=== PATIENT | female | born 1970 | race Caucasian/White ===

== ENCOUNTER 2016-10-31 21:17 | Emergency (ER) | payer MEDICAID ==
[~2016-10-31] VITALS: Ht 177.8 cm; Wt 78.6 kg
[~2016-10-31 21:17] MED LIST: CLON0.5T23 PO; DULO60CA56 PO; FLUD0.1T10 PO; LIOT5TAB9 PO; PARO40TA72 PO; PROG100C6 PO; PROP10DR3 BOTH EYES; RISP1TAB4 PO; RISP3TAB3 PO; THYR60TA2 PO; TOPI100T43 PO; TRAZ-173 PO
[2016-10-31 21:22] VITALS: Ht 177.8 cm; Wt 78.6 kg
--- OUTSIDE RECORDS SUMMARY | 2016-10-31 21:22 | XMS REPORT | Referral Summary ---
Author Author [facility], [facility] Organization [facility] Address Unknown Phone Unavailable Care Team Providers Care Blueprinter Name Role Phone Marisol Peoples Primary Care Physician [phone] Encounter Date(s): 10/24/15 - 10/24/15 [facility], [address] [place] [id number]- Discharge Diagnosis: Abdominal pain Discharge Diagnosis: Fatigue Discharge Diagnosis: Paranoid schizophrenia Discharge Disposition: 01-Home or Self Care Attending Physician: Veronica Mullen PA-C Admitting Physician: Veronica Mullen PA-C Vital Signs Most recent to 1 oldest [Reference Range]: Temperature Tympanic 36.2 degC [36.6-38.1 degC] *LOW* (10/24/15 11:09 AM) Peripheral Pulse 72 bpm Rate [60-100 bpm] (10/24/15 11:09 AM) Blood Pressure 110/74 mmHg [90-140/60-90 mmHg] (10/24/15 11:09 AM) Problem List Condition Effective Dates Status Health Status Informant Allergies(Confirmed) Active Bronchitis(Confirmed Active ) Chronic otitis Active media(Confirmed) Chronic sinus Active infection(Confirmed) Depression(Confirmed Active ) Fibromyalgia(Confirm Active ed) GERD Active (gastroesophageal reflux disease)(Confirmed) Joint Active pain(Confirmed) OA Active (osteoarthritis)(Con firmed) Paranoid Active schizophrenia(Confir med) Tobacco Active patient user(Confirmed) Fibroid 2006 Active tumor(Confirmed) Allergies, Adverse Reactions, Alerts No Known Medication Allergies Substance Reaction Severity Status shellfish Active Medications clonazePAM 1 mg oral tablet 1 mg 1 tabs, Oral, BID, 0 Refill(s) Start Date: 12/13/13 Status: Ordered Cymbalta 60 mg oral delayed release capsule 2 caps, Oral, Daily, 0 Refill(s) Start Date: 12/13/13 Status: Ordered fludrocortisone 0.1 mg oral tablet See Instructions, TAKE 1 TABLET (0.1MG) BY ORAL ROUTE EVERY DAY, # 90 unknown unit, eRx: [employer] [id number], TAKE 1 TABLET (0.1MG) BY ORAL ROUTE EVERY DAY Start Date: 08/28/15 Status: Ordered GELATIN 1,200 mg, Oral, Daily, 0 Refill(s) Start Date: 12/13/13 Status: Ordered liothyronine 5 mcg oral tablet 5 mcg 1 tabs, Oral, qAM, 0 Refill(s) Start Date: 11/02/14 Status: Ordered magnesium oxide 250 mg, Oral, Daily, 0 Refill(s) Start Date: 12/13/13 Status: Ordered multivitamin 1 tabs, Daily, 0 Refill(s) Start Date: 12/13/13 Status: Ordered Proctozone HC 2.5% topical cream 1 geoff, Topical, TID, # 30 g, 0 Refill(s), [facility] [id number] Start Date: 06/12/15 Status: Ordered RisperDAL 1 mg oral tablet 1 mg 1 tabs, Oral, BID, 2 mg am and 3 mg pm, # 60 tabs, 0 Refill(s) Start Date: 03/15/15 Status: Ordered Topamax 100 mg oral tablet 100 mg 1 tabs, Oral, BID, 0 Refill(s) Start Date: 12/13/13 Status: Ordered traZODone 100 mg oral tablet 1 tabs, Oral, Bedtime (once a day), 0 Refill(s) Start Date: 11/02/14 Status: Ordered Results Hematology Most recent to 1 oldest [Reference Range]: WBC [4.8-10.8 5.2 10*3/uL 10*3/uL] (10/24/15 11:40 AM) RBC [4.00-5.20] 4.63 (10/24/15 11:40 AM) Hgb [12.0-16.0 14.3 gm/dL gm/dL] (10/24/15 11:40 AM) Hct [37.0-47.0 %] 40.8 % (10/24/15 11:40 AM) MCV [82.0-99.0 fL] 88.1 fL (10/24/15:40 AM) MCH [27.0-32.0 pg] 30.9 pg (10/24/1540 AM) MCHC [32.0-36.0 35.0 gm/dL gm/dL] (10/24/1540 AM) RDW [11.5-14.5 %] 12.8 % (10/24/1540 AM) Platelet [150-400 310 10*3/uL 10*3/uL] (10/24/1540 AM) MPV [8.8-14.8 fL] 11.0 fL (10/24/1540 AM) Immature 0.0 % Granulocytes (10/24/15) [0.0-1.0 %] Neutrophils [51-75 46 % %] *LOW* (10/24/15:40 AM) Lymphocytes [20-46 42 % %] (10/24/1540 AM) Monocytes [4-11 %] 8 % (10/24/15 11:40 AM) Eosinophils [0-4 %] 3 % (10/24/15 11:40 AM) Basophils [0-2 %] 1 % (10/24/15 11:40 AM) Neutro Absolute 2.39 10*3 [1.90-7.00 10*3] (10/24/15 11:40 AM) Lymph Absolute 2.14 10*3 [0.80-3.30 10*3] (10/24/15 11:40 AM) Hood Absolute 0.41 10*3 [0.30-1.00 10*3] (10/24/15 11:40 AM) Eos Absolute 0.16 10*3 [0.00-0.50 10*3] (10/24/15 11:40 AM) Baso Absolute 0.05 10*3 [0.00-0.20 10*3] (10/24/15 11:40 AM) Chemistry Most recent to 1 oldest [Reference Range]: Sodium Lvl [135-144 140 mEq/L mEq/L] (10/24/15 1140 AM) Potassium Lvl 3.8 mEq/L [3.5-5.2 mEq/L] (10/24/15 11:40 AM) Chloride [99-111 108 mEq/L mEq/L] (10/24/15 11:40 AM) CO2 [22-31 mEq/L] 27 mEq/L (10/24/15:40 AM) AGAP [3-20] 5 (10/24/15:40 AM) BUN [7-19 mg/dL] 6 mg/dL *LOW* (10/24/15 AM) Glucose Lvl [70-99 115 mg/dL mg/dL] *HI* (10/24/1540 AM) Creatinine Lvl 0.70 mg/dL [0.57-1.11 mg/dL] (10/24/1540 AM) eGFR [>60 mL/min] >60 mL/min 1 (10/24/1540 AM) Calcium Lvl 9.4 mg/dL [8.9-10.5 mg/dL] (10/24/15:40 AM) Albumin Lvl [3.5-5.0 4.0 gm/dL gm/dL] (10/24/15:40 AM) Total Protein 6.2 gm/dL [6.4-8.3 gm/dL] *LOW* (10/24/1540 AM) Globulin [1.8-4.0 2.2 gm/dL gm/dL] (10/24/15 11:40 AM) ALT [0-55 U/L] 23 U/L (10/24/15:40 AM) AST [5-34 U/L] 24 U/L (10/24/15 11:40 AM) Alk Phos [40-150 102 U/L U/L] (10/24/15 11:40 AM) Bili Total [0.2-1.2 0.2 mg/dL mg/dL] (10/24/15 11:40 AM) T4 Free [0.7-1.5 0.6 ng/dL ng/dL] *LOW* (10/24/15 11:40 AM) TSH with Reflex Free 0.10 T4 [0.35-4.94] *LOW* (10/24/15 11:40 AM) 1Result Comment: Multiply eGFR results by 1.21 for race. Immunizations Vaccine Date Refusal Reason tetanus/diphth/pertuss (Tdap) adult/adol 06/07/12 Procedures Procedure Date Related Diagnosis Body Site JULIANA - Total abdominal hysterectomy - 1 ovary 2006 Tonsillectomy Social History Social History Type Response Smoking Status Former smoker Assessment and Plan Extracted from: Title: Ambulatory Patient Education Author: Veronica Mullen PA-C Date : 10/24/15 Behavioral Health Schizophrenia Schizophrenia is a mental illness. It may cause disturbed or disorganized thinking, speech, or behavior. People with schizophrenia have problems functioning in one or more areas of life: work, school, home, or relationships. People with schizophrenia are at increased risk for suicide, certain chronic physical illnesses, and unhealthy behaviors, such as smoking and drug use. People who have family members with schizophrenia are at higher risk of developing the illness. Schizophrenia affects men and women equally but usually appears at an earlier age (teenage or early adult years) in men. SYMPTOMS The earliest symptoms are often subtle (prodrome) and may go unnoticed until the illness becomes more severe (first-break psychosis). Symptoms of schizophrenia may be continuous or may come and go in severity. Episodes often are triggered by major life events, such as family stress, college, service, marriage, or child , divorce, or loss of a loved one. People with schizophrenia may see, hear, or feel things that do not exist ( hallucinations). They may have false beliefs in spite of obvious proof to the contrary (delusions). Sometimes speech is incoherent or behavior is odd or withdrawn. DIAGNOSIS Schizophrenia is diagnosed through an assessment by your caregiver. Your caregiver will ask questions about your thoughts, behavior, mood, and ability to function in daily life. Your caregiver may ask questions about your medical history and use of alcohol or drugs, including prescription medication. Your caregiver may also order blood tests and imaging exams. Certain medical conditions and substances can cause symptoms that resemble schizophrenia. Your caregiver may refer you to a mental health specialist for evaluation. There are three major criterion for a diagnosis of schizophrenia: Two or more of the following five symptoms are present for a month or longer: Delusions. Often the delusions are that you are being attacked, harassed , cheated, persecuted or conspired against (persecutory delusions). Hallucinations. Disorganized speech that does not make sense to others. Grossly disorganized (confused or unfocused) behavior or extremely overactive or underactive motor activity (catatonia). Negative symptoms such as bland or blunted emotions (flat affect), loss of will power (avolition), and withdrawal from social contacts (social isolation ). Level of functioning in one or more major areas of life (work, school, relationships, or self-care) is markedly below the level of functioning before the onset of illness. There are continuous signs of illness (either mild symptoms or decreased level of functioning) for at least 6 months or longer. TREATMENT Schizophrenia is a long-term illness. It is best controlled with continuous treatment rather than treatment only when symptoms occur. The following treatments are used to manage schizophrenia: MedicationMedication is the most effective and important form of treatment for schizophrenia. Antipsychotic medications are usually prescribed to help manage schizophrenia. Other types of medication may be added to relieve any symptoms that may occur despite the use of antipsychotic medications. Counseling or talk therapyIndividual, group, or family counseling may be helpful in providing education, support, and guidance. Many people with schizophrenia also benefit from social skills and job skills (vocational) training. A combination of medication and counseling is best for managing the disorder over time. A procedure in which electricity is applied to the brain through the scalp (electroconvulsive therapy) may be used to treat catatonic schizophrenia or schizophrenia in people who cannot take or do not respond to medication and counseling. This information is not intended to replace advice given to you by your health care provider. Make sure you discuss any questions you have with your health care provider. Document Released: 06/12/2001 Document Revised: 04/03/2015 Document Reviewed: [facility] Patient Information [address] [facility] [address]. Emergency Medicine Abdominal Pain Many things can cause abdominal pain. Usually, abdominal pain is not caused by a disease and will improve without treatment. It can often be observed and treated at home. Your health care provider will do a physical exam and possibly order blood tests and X-rays to help determine the seriousness of your pain. However, in many cases, more time must pass before a clear cause of the pain can be found. Before that point, your health care provider may not know if you need more testing or further treatment. HOME CARE INSTRUCTIONS Monitor your abdominal pain for any changes. The following actions may help to alleviate any discomfort you are experiencing: Only take cuxd-hql-vjqnumc or prescription medicines as directed by your health care provider. Do not take laxatives unless directed to do so by your health care provider. Try a clear liquid diet (broth, tea, or water) as directed by your health care provider. Slowly move to a bland diet as tolerated. SEEK MEDICAL CARE IF: You have unexplained abdominal pain. You have abdominal pain associated with nausea or diarrhea. You have pain when you urinate or have a bowel movement. You experience abdominal pain that wakes you in the night. You have abdominal pain that is worsened or improved by eating food. You have abdominal pain that is worsened with eating fatty foods. You have a fever. SEEK IMMEDIATE MEDICAL CARE IF: Your pain does not go away within 2 hours. You keep throwing up (vomiting). Your pain is felt only in portions of the abdomen, such as the right side or the left lower portion of the abdomen. You pass bloody or black tarry stools. MAKE SURE YOU: Understand these instructions. Will watch your condition. Will get help right away if you are not doing well or get worse. This information is not intended to replace advice given to you by your health care provider. Make sure you discuss any questions you have with your health care provider. Document Released: 03/25/2006 Document Revised: 06/20/2014 Document Reviewed: [facility] Patient Information 2015 [facility]. [facility] Fatigue Fatigue is feeling tired all of the time, a lack of energy, or a lack of motivation. Occasional or mild fatigue is often a normal response to activity or life in general. However, long-lasting (chronic) or extreme fatigue may indicate an underlying medical condition. HOME CARE INSTRUCTIONS Watch your fatigue for any changes. The following actions may help to lessen any discomfort you are feeling: Talk to your health care provider about how much sleep you need each night. Try to get the required amount every night. Take medicines only as directed by your health care provider. Eat a healthy and nutritious diet. Ask your health care provider if you need help changing your diet. Drink enough fluid to keep your urine clear or pale yellow. Practice ways of relaxing, such as yoga, meditation, massage therapy, or acupuncture. Exercise regularly. Change situations that cause you stress. Try to keep your work and personal routine reasonable. Do not abuse illegal drugs. Limit alcohol intake to no more than 1 drink per day for non women and 2 drinks per day for men. One drink equals 12 ounces of beer, 5 ounces of wine, or 1 ounces of hard liquor. Take a multivitamin, if directed by your health care provider. SEEK MEDICAL CARE IF: Your fatigue does not get better. You have a fever. You have unintentional weight loss or gain. You have headaches. You have difficulty: Falling asleep. Sleeping throughout the night. You feel angry, guilty, anxious, or sad. You are unable to have a bowel movement (constipation). You skin is dry. Your legs or another part of your body is swollen. SEEK IMMEDIATE MEDICAL CARE IF: You feel confused. Your vision is blurry. You feel faint or pass out. You have a severe headache. You have severe abdominal, pelvic, or back pain. You have chest pain, shortness of breath, or an irregular or fast heartbeat. You are unable to urinate or you urinate less than normal. You develop abnormal bleeding, such as bleeding from the rectum, vagina, nose, lungs, or nipples. You vomit blood. You have thoughts about harming yourself or committing suicide. You are worried that you might harm someone else. This information is not intended to replace advice given to you by your health care provider. Make sure you discuss any questions you have with your health care provider. Document Released: 04/11/2008 Document Revised: 04/03/2015 Document Reviewed: [facility] Patient Information 2015 [facility], [facility]. No follow up information was provided. Extracted from: Title: Office Visit Note- Fatigue, Author: Veronica Mullen PA-C Date : 10/24/15 abd pain Assessment/Plan Abdominal pain I think this is probably more functional abdominal pain. She thinks that there are people in her house putting things in her food to make her sick. I recommended that she call her therapist and machine adjuster leader case trim today. Ordered: Office Visit Level 4 Est 83996 Fatigue, Fatigue I think this couldbe due to her recent changes in medications. Again, she needs to see her therapist TANIYA.Will go ahead and check some lab. As far as the STD checking goes, I advised against checking these. I did offer to check HIV status, but she declined today. Ordered: CBC w/ Differential Comprehensive Metabolic Panel Office Visit Level 4 Est 65319 TSH with Reflex Free T4 Paranoid schizophrenia As above, antoineeeds to see her therapist today. I think she would do infinitely better as in patient, but she does not want to do this because of her cat. F/u with psych. Ordered: Office Visit Level 4 Est 65512
--- OUTSIDE RECORDS SUMMARY | 2016-10-31 21:22 | XMS REPORT ---
Author Author Sandra Daniel Organization [employer] Address Unknown Phone Unavailable Care Team Providers Care Account Management Specialist Name Role Phone Sandra Daniel Unavailable Allergies No Known Allergies Problems Problem Type Condition Code Onset Dates Condition Status Problem Anxiety state, unspecified 300.00 Active Problem Unspecified schizophrenia, unspecified condition 295.90 Active Medications Medication Code System Code Instructions Start Date End Date Status Dosage [facility] [address]-07 6 MG Orally Once a day 1 tablet Results No Known Results Summary Purpose [employer] Submission
--- OUTSIDE RECORDS SUMMARY | 2016-10-31 21:23 | XMS REPORT | Continuity of Care Document ---
Author Author [facility] Organization [facility] Address Unknown Phone Unavailable Allergies Medications Problems Date Dx Coded Attending Type Code Diagnosis Diagnosed By 08/23/2015 LOYDA MCKEON E039 Hypothyroidism, unspecified 08/23/2015 LOYDA MCKEON F251 Schizoaffective disorder, depressive type 08/23/2015 LOYDA MCKEON I10 Essential (primary) hypertension 08/23/2015 LOYDA MCKEON R51 Headache 08/23/2015 LOYDA MCKEON [id number] Hormone replacement therapy (postmenopausal) 08/23/2015 LOYDA MCKEON [id number] Other extermination supervisor (current) drug therapy 08/23/2015 LOYDA MCKEON Z9114 Patient's other noncompliance with medication regimen 08/23/2015 LOYDA MCKEON Z915 Personal history of self-harm 10/26/2015 ANGELITA CALLAWAY E039 Hypothyroidism, unspecified 10/26/2015 ANGELITA CALLAWAY F209 Schizophrenia, unspecified 10/26/2015 ANGELITA CALLAWAY Z915 Personal history of self-harm Procedures Results Encounters ACCT No. Visit Date/Time Discharge Status Pt. Type Provider Facility Loc./Unit Complaint [id number] 09/22/2013 13:45:00 09/22/2013 23 :59:59 [facility] Outpatient [id number] 09/14/2013 10:00:00 09/14/2013 23 :59:59 [facility] Outpatient
--- OUTSIDE RECORDS SUMMARY | 2016-10-31 21:23 | XMS REPORT ---
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 Problem Major depressive disorder, recurrent, moderate F33.1 Active Problem Anxiety disorder, unspecified F41.9 Active Assessment Anxiety disorder, unspecified F41.9 Active Assessment Major depressive disorder, recurrent, moderate F33.1 Active 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 Chacon 1 tablet Liothyronine Sodium [facility] [address]-26 5 MCG Orally twice daily 1 tabs in AM sand 2 in PM Risperdal [facility] [address]-07 3 MG Orally Once a day in the evening December 08, 2014 1 tablet Clonazepam [facility] [address]-90 0.5 MG Orally twice daily anxiety; no early refills 1/2 tablet in afternoon and at bedtime Duloxetine HCl [facility] [address]-48 60 MG Orally Once a day in AM for mood 2 capsules Blair Thyroid [facility] [address]-25 30 MG Orally as directed 2 tabs in AM and 1 tabs every PM Topiramate [facility] [address]-62 100 MG Orally as directed for mood stabilization 1 tablet in AM, 1 in afternoon, and 1 tabs at H.S. Procedures Procedure Coding System Code Date OFFICE VISIT, EST-MOD. COMPLEXITY (25 MIN) CPT-4 01080 Jun 26, 2015 Vital Signs Date/Time: Jun 26, 2015 Height 68.5 in Weight 165.8 lbs Temperature 98.5 F Blood Pressure Diastolic 88 mm Hg Blood Pressure Systolic 138 mm Hg Cardiac Monitoring Heart Rate 76 /min BMI 24.84 Index Respiratory Rate 18 /min Results No Known Results Summary Purpose [employer] Submission
--- OUTSIDE RECORDS SUMMARY | 2016-10-31 21:23 | XMS REPORT ---
Author Author Sandra Daniel Organization [employer] Address Unknown Phone Unavailable Care Team Providers Care Rug Setter [place] Name Role Phone Sandra Daniel Unavailable Allergies No Known Allergies Problems Problem Type Condition ICD-9 Code Onset Dates Condition Status Problem Anxiety state, unspecified 300.00 Active Assessment Unspecified schizophrenia, unspecified condition 295.90 Active Problem Unspecified schizophrenia, unspecified condition 295.90 Active Medications Medication Code System Code Instructions Start Date End Date Status Dosage [facility] [address]-98 3 MG Orally Once a day (add to 6mg to equal 9mg) September 19, 2014 1 tablet Results No Known Results Summary Purpose [employer] Submission
--- OUTSIDE RECORDS SUMMARY | 2016-10-31 21:23 | XMS REPORT ---
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
--- OUTSIDE RECORDS SUMMARY | 2016-10-31 21:23 | XMS REPORT ---
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
--- OUTSIDE RECORDS SUMMARY | 2016-10-31 21:23 | XMS REPORT ---
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 [address]-83 0.5 MG Orally twice daily anxiety; no early refills 1/2 tablet in afternoon and at bedtime Results No Known Results Summary Purpose [employer] Submission
--- OUTSIDE RECORDS SUMMARY | 2016-10-31 21:23 | XMS REPORT | Referral Summary ---
Author Author [facility] Organization [facility] Address Unknown Phone Unavailable Care Team Providers Care Copying Machine Repairer Name Role Phone Marisol Peoples Primary Care Physician [phone] Encounter VC Date(s): 11/02/14 - 11/02/14 [facility] [address] [place] [id number] Discharge Diagnosis: Orthostasis Discharge Disposition: 01-Home or Self Care Attending Physician: Danielle Chacon MD Admitting Physician: Danielle Chacon MD Vital Signs Most recent to 1 oldest [Reference Range]: Peripheral Pulse 46 bpm Rate [60-100 bpm] *LOW* (11/02/14 2:57 PM) Blood Pressure 120/82 mmHg [90-140/60-90 mmHg] (11/02/14 2:57 PM) Problem List Condition Effective Dates Status Health Status Informant Allergies(Confirmed) Active Bronchitis(Confirmed Active ) Chronic otitis Active media(Confirmed) Chronic sinus Active infection(Confirmed) Depression(Confirmed Active ) Fibromyalgia(Confirm Active ed) GERD Active (gastroesophageal reflux disease)(Confirmed) Joint Active pain(Confirmed) OA Active (osteoarthritis)(Con firmed) Tobacco Active patient user(Confirmed) Fibroid 2006 Active tumor(Confirmed) Allergies, Adverse Reactions, Alerts No Known Medication Allergies Medications [place] Thyroid 2 gm, Oral, qAM, 1gm qPM, 0 Refill(s) Start Date: 11/02/14 Status: Ordered clonazePAM 1 mg oral tablet 0.5 mg 0.5 tabs, Oral, BID, 0 Refill(s) Start Date: 12/13/13 Status: Ordered cyclobenzaprine 10 mg oral tablet 1 tabs, Oral, TID, as needed for spasm, # 30 tabs, 0 Refill(s) Start Date: 11/02/14 Status: Ordered Cymbalta 60 mg oral delayed release capsule 2 caps, Oral, Daily, 0 Refill(s) Start Date: 12/13/13 Status: Ordered Fish Oil 1000 mg oral capsule 1 caps, Oral, Daily, 0 Refill(s) Start Date: 12/13/13 Status: Ordered fludrocortisone 0.1 mg oral tablet See Instructions, TAKE 1 TABLET (0.1MG) BY ORAL ROUTE EVERY DAY, # 90 unknown unit, 3 Refill(s), eRx: [id number], TAKE 1 TABLET (0.1MG) BY ORAL ROUTE EVERY DAY Start Date: 09/22/14 Status: Ordered GELATIN 1,200 mg, Oral, Daily, 0 Refill(s) Start Date: 12/13/13 Status: Ordered liothyronine 5 mcg oral tablet 1 tabs, Oral, qAM, 2 tab qPM, 0 Refill(s) Start Date: 11/02/14 Status: Ordered magnesium oxide 250 mg, Oral, Daily, 0 Refill(s) Start Date: 12/13/13 Status: Ordered multivitamin 1 tabs, Daily, 0 Refill(s) Start Date: 12/13/13 Status: Ordered [place] 5 mg-325 mg oral tablet 1 tabs, Oral, q6hr, as needed for pain, not to exceed 8 tablets/day MUST HAVE APPT PRIOR TO ANY ADDITIONAL REFILLS, # 30 tabs, 0 Refill(s) Start Date: 03/20/15 Status: Ordered Paxil 30 mg oral tablet 1 tabs, Oral, Daily, # 30 tabs, 0 Refill(s) Start Date: 12/13/13 Status: Ordered RisperDAL 1 mg oral tablet 1 mg 1 tabs, Oral, BID, 1 mg am and 3 mg pm, # 60 tabs, 0 Refill(s) Start Date: 03/15/15 Status: Ordered Topamax 100 mg oral tablet 1 tabs, Oral, TID, 0 Refill(s) Start Date: 12/13/13 Status: Ordered traZODone 100 mg oral tablet 1 tabs, Oral, Bedtime (once a day), 0 Refill(s) Start Date: 11/02/14 Status: Ordered Results Hematology Most recent to 1 oldest [Reference Range]: WBC [4.8-10.8 7.0 10*3/uL 10*3/uL] (11/02/14 3:56 PM) RBC [4.00-5.20 4.52 10*6/uL 10*6/uL] (11/02/14 3:56 PM) Hgb [12.0-16.0 14.0 gm/dL gm/dL] (11/02/14 3:56 PM) Hct [37.0-47.0 %] 39.9 % (11/02/14 3:56 PM) MCV [82.0-99.0 fL] 88.3 fL (11/02/14 3:56 PM) MCH [27.0-32.0 pg] 31.0 pg (11/02/14 3:56 PM) MCHC [32.0-36.0 35.1 gm/dL gm/dL] (11/02/14 3:56 PM) RDW [11.5-14.5 %] 12.7 % (11/02/14 3:56 PM) Platelet [150-400 234 10*3/uL 10*3/uL] (11/02/14 3:56 PM) MPV [8.8-14.8 fL] 10.7 fL (11/02/14 3:56 PM) Immature 0.1 % Granulocytes (11/02/14 3:56 PM) [0.0-1.0 %] Neutrophils [51-75 52 % %] (11/02/14 3:56 PM) Lymphocytes [20-46 38 % %] (11/02/14 3:56 PM) Monocytes [4-11 %] 7 % (11/02/14 3:56 PM) Eosinophils [0-4 %] 2 % (11/02/14 3:56 PM) Basophils [0-2 %] 0 % (11/02/14 3:56 PM) Neutro Absolute 3.67 10*3 [1.90-7.00 10*3] (11/02/14 3:56 PM) Lymph Absolute 2.69 10*3 [0.80-3.30 10*3] (11/02/14 3:56 PM) [place] Absolute 0.47 10*3 [0.30-1.00 10*3] (11/02/14 3:56 PM) Eos Absolute 0.15 10*3 [0.00-0.50 10*3] (11/02/14 3:56 PM) Baso Absolute 0.03 10*3 [0.00-0.20 10*3] (11/02/14 3:56 PM) Chemistry Most recent to 1 oldest [Reference Range]: Sodium Lvl [135-144 137 mEq/L mEq/L] (11/02/14 3:56 PM) Potassium Lvl 3.9 mEq/L [3.5-5.2 mEq/L] (11/02/14 3:56 PM) Chloride [99-111 108 mEq/L mEq/L] (11/02/14 3:56 PM) CO2 [22-31 mEq/L] 23 mEq/L (11/02/14 3:56 PM) AGAP [3-20] 6 (11/02/14 3:56 PM) BUN [7-19 mg/dL] 7 mg/dL (11/02/14 3:56 PM) Glucose Lvl [70-99 86 mg/dL mg/dL] (11/02/14 3:56 PM) Creatinine Lvl 0.60 mg/dL [0.57-1.11 mg/dL] (11/02/14 3:56 PM) eGFR [>60 mL/min] >60 mL/min 1 (11/02/14 3:56 PM) Calcium Lvl 9.3 mg/dL [8.9-10.5 mg/dL] (11/02/14 3:56 PM) Albumin Lvl [3.5-5.0 3.9 gm/dL gm/dL] (11/02/14 3:56 PM) Total Protein 6.1 gm/dL [6.4-8.3 gm/dL] *LOW* (11/02/14 3:56 PM) Globulin [1.8-4.0 2.2 gm/dL gm/dL] (11/02/14 3:56 PM) ALT [0-55 U/L] 23 U/L (11/02/14 3:56 PM) AST [5-34 U/L] 23 U/L (11/02/14 3:56 PM) Alk Phos [40-150 80 U/L U/L] (11/02/14 3:56 PM) Bili Total [0.2-1.2 0.5 mg/dL mg/dL] (11/02/14 3:56 PM) 1Result Comment: Multiply eGFR results by 1.21 for race. Immunizations Vaccine Date Refusal Reason tetanus/diphth/pertuss (Tdap) adult/adol 06/07/12 Procedures Procedure Date Related Diagnosis Body Site JULIANA - Total abdominal hysterectomy - 1 ovary 2006 Tonsillectomy Social History Social History Type Response Smoking Status Former smoker Assessment and Plan Extracted from: Title: Office Visit Note Author: Danielle Chacon MD Date: 11/02/14 Assessment/Plan 1.Orthostasis Ordered: CBC w/ Differential Comprehensive Metabolic Panel Office Visit Level 3 Est 65232 Return to Clinic Referrals to Other Providers Referred by: Danielle Chacon MD
--- OUTSIDE RECORDS SUMMARY | 2016-10-31 21:23 | XMS REPORT | Referral Summary ---
Author Author [facility] Organization [facility] Address Unknown Phone Unavailable Care Team Providers Care Office Machine Inspector Name Role Phone Marisol Peoples Primary Care Physician [phone] Encounter VC Date(s): 11/06/15 - 11/06/15 [facility] [address] [place] [id number] Discharge Diagnosis: Orthostasis Discharge Disposition: 01-Home or Self Care Attending Physician: Danielle Chacon MD Admitting Physician: Danielle Chacon MD Vital Signs Most recent to 1 oldest [Reference Range]: Peripheral Pulse 50 bpm Rate [60-100 bpm] *LOW* (11/06/15 3:08 PM) Blood Pressure 110/70 mmHg [90-140/60-90 mmHg] (11/06/15 3:08 PM) Problem List Condition Effective Dates Status [...] Refill(s) Start Date: 12/13/13 Status: Ordered Cymbalta 120 mg, Oral, Daily, 0 Refill(s) Start Date: 11/06/15 Status: Ordered Cymbalta 60 mg oral delayed release capsule 2 caps, Oral, Daily, 0 Refill(s) Start Date: 12/13/13 Status: Ordered fludrocortisone 0.1 mg oral tablet See Instructions, TAKE 1 TABLET (0.1MG) BY ORAL ROUTE EVERY DAY, # 90 unknown unit, eRx: [id number], TAKE 1 TABLET (0.1MG) BY ORAL ROUTE EVERY DAY Start Date: 08/28/15 Status: Ordered magnesium oxide 250 mg, Oral, Daily, 0 Refill(s) Start Date: 12/13/13 Status: Ordered MiraLax oral powder for reconstitution 17 g, Oral, Daily, dissolve in water before taking, # 255 g, 0 Refill(s) Start Date: 11/06/15 Status: Ordered multivitamin 1 tabs, Daily, 0 Refill(s) Start Date: 12/13/13 Status: Ordered Nicorette 2 mg oral transmucosal gum 2 mg 1 Each, Chewed, q2hr, as needed for smoking cessation, # 50 Each, 0 Refill( s) Start Date: 11/06/15 Status: Ordered ondansetron 8 mg oral tablet, disintegrating See Instructions, as needed for nausea/vomiting, 1 tab PO q4-6h, # 15 tabs, 0 Refill(s), Pharmacy: [facility], 1 tab PO q4-6h,PRN:as needed for nausea/vomiting Start Date: 10/25/15 Status: Ordered RisperDAL 1 mg oral tablet See Instructions, 2 mg AM and 3 mg PM, 0 Refill(s) Start Date: 03/15/15 Status: Ordered Topamax 100 mg oral tablet 100 mg 1 tabs, Oral, BID, 0 Refill(s) Start Date: 12/13/13 Status: Ordered traZODone 100 mg oral tablet 1 tabs, Oral, Bedtime (once a day), 0 Refill(s) Start Date: 11/02/14 Status: Ordered Vitamin B12 1 tabs, Oral, Daily, 0 Refill(s) Start Date: 11/06/15 Status: Ordered Vitamin C 1 tabs, Oral, Daily, 0 Refill(s) Start Date: 11/06/15 Status: Ordered Results No data available for this section Immunizations Vaccine Date Refusal Reason tetanus/diphth/pertuss (Tdap) adult/adol 06/07/12 Procedures Procedure Date Related Diagnosis Body Site JULIANA - Total abdominal hysterectomy - 1 ovary 2006 Tonsillectomy Social History Social History Type Response Smoking Status Former smoker Assessment and Plan Extracted from: Title: Office Visit Note Author: Danielle Chacon MD Date: 11/06/15 Assessment/Plan 1.Orthostasis Ordered: Office Visit Level 3 Est 07425 Return to Clinic Referrals to Other Providers Referred by: Danielle Chacon MD
--- OUTSIDE RECORDS SUMMARY | 2016-10-31 21:23 | XMS REPORT ---
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 Trazodone HCl [facility] [address]-65 100 MG Orally Once a day 1 tablet at bedtime Results No Known Results Summary Purpose [employer] Submission
--- OUTSIDE RECORDS SUMMARY | 2016-10-31 21:23 | XMS REPORT ---
Author Sandra Lewis Organization [employer] Address Unknown Phone Unavailable Care Team Providers Care Special Machine Operator Name Role Phone Sandra Daniel CP Unavailable Allergies No Known Allergies Problems Problem Type Condition Code Onset Dates Condition Status Problem 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 Problem Major depressive disorder, recurrent, moderate F33.1 Active Problem Anxiety disorder, unspecified F41.9 Active Problem Personal history of other diseases of the digestive system Z87.19 Active Problem Insomnia, unspecified G47.00 Active Problem Constipation, unspecified K59.00 Active Medications No Known Medications Results No Known Results Summary Purpose [employer] Submission
--- OUTSIDE RECORDS SUMMARY | 2016-10-31 21:23 | XMS REPORT ---
Author Author Sandra Daniel [facility] [employer] Address Unknown Phone Unavailable Care Team Providers Care Commercial Portfolio Manager Name Role Phone Sandra Daniel CP Unavailable Allergies, Adverse Reactions, Alerts Substance Reaction Event Type Ritalin psychosis Drug Allergy Gluten GI distress Non Drug Allergy Problems Problem Type Condition Code Onset Dates Condition Status Problem 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 Problem Major depressive disorder, recurrent, moderate F33.1 Active Problem Anxiety disorder, unspecified F41.9 Active Assessment Major depressive disorder, recurrent, moderate F33.1 Active Assessment Anxiety disorder, unspecified F41.9 Active 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 Medications Medication Code System Code Instructions Start Date End Date Status Dosage Topiramate [facility] [address]-74 100 MG Orally as directed for mood stabilization 1 tablet in AM, 1 in afternoon, and 1 tabs at H.S. Risperdal [facility] [address]-19 3 MG Orally Once a day in the evening December 08, 2014 1 tablet Clonazepam [facility] [address]-45 0.5 MG Orally twice daily anxiety; no early refills 1/2 tablet in afternoon and at bedtime Trazodone HCl [facility] [address]-01 100 MG Orally Once a day 1 tablet at bedtime Lavina Thyroid [facility] [address]-85 30 MG Orally as directed 2 tabs in AM and 1 tabs every PM Duloxetine HCl [facility] [address]-32 60 MG Orally Once a day in AM for mood 2 capsules Liothyronine Sodium [facility] [address]-50 5 MCG Orally twice daily 1 tabs in AM sand 2 in PM Paxil [facility] [address]-55 40 MG Orally Once a day at bedtime 1 tablet Risperdal [facility] [address]-33 1 MG Orally 1 tab every AM December 02, 2014 1 tablet Fludrocortisone Acetate [facility] [address]-54 0.1 MG Orally once a day as directed by Dr. Chacon 1 tablet Lortab 2.5 NDC 0 not defined Procedures Procedure Coding System Code Date OFFICE VISIT, EST-MOD. COMPLEXITY (25 MIN) CPT-4 45312 Aug 03, 2015 Vital Signs Date/Time: Aug 03, 2015 Height 68.5 in Weight 161 lbs Temperature 98.0 F Blood Pressure Diastolic 68 mm Hg Blood Pressure Systolic 112 mm Hg Cardiac Monitoring Heart Rate 84 /min BMI 24.12 Index Respiratory Rate 16 /min Results No Known Results Summary Purpose [employer] Submission
--- OUTSIDE RECORDS SUMMARY | 2016-10-31 21:23 | XMS REPORT | Referral Summary ---
Author Author [facility], [facility] Organization [facility] Address Unknown Phone Unavailable Care Team Providers Care Street Roller Engineer Name Role Phone Marisol Peoples Primary Care Physician [phone] Encounter Date(s): 06/20/15 - 06/20/15 [facility], [address] [place] [address]- Discharge Diagnosis: Generalized rash Discharge Disposition: 01-Home or Self Care Attending Physician: Veronica Mullen PA-C Admitting Physician: Veronica Mullen PA-C Vital Signs Most recent to 1 oldest [Reference Range]: Temperature Tympanic 37 degC [36.6-38.1 degC] (06/20/15 4:27 PM) Peripheral Pulse 64 bpm Rate [60-100 bpm] (06/20/15 4:27 PM) Blood Pressure 128/80 mmHg [90-140/60-90 mmHg] (06/20/15 4:27 PM) Problem List Condition Effective Dates Status Health Status Informant Allergies(Confirmed) Active Bronchitis(Confirmed Active ) Chronic otitis Active media(Confirmed) Chronic sinus Active infection(Confirmed) Depression(Confirmed Active ) Fibromyalgia(Confirm Active ed) GERD Active (gastroesophageal reflux disease)(Confirmed) Joint Active pain(Confirmed) OA Active (osteoarthritis)(Con firmed) Tobacco Active patient user(Confirmed) Fibroid 2006 Active tumor(Confirmed) Allergies, Adverse Reactions, Alerts No Known Medication Allergies Medications [place] Thyroid 2 gm, Oral, qAM, 1gm qPM, [...] # 90 unknown unit, 3 Refill(s), eRx: [facility] [id number], TAKE 1 TABLET (0.1MG) BY ORAL ROUTE [...] 0 Refill(s) Start Date: 12/13/13 Status: Ordered [place] 5 mg-325 mg oral tablet 1 tabs, Oral, q6hr, as needed for pain, not to exceed 8 tablets/day MUST HAVE APPT PRIOR TO ANY ADDITIONAL REFILLS, # 30 tabs, 0 Refill(s) Start Date: 05/22/15 Status: Ordered Paxil 30 mg oral tablet 30 mg 1 tabs, Oral, Daily, REPORTS TAKES 40 MG QD, # 30 tabs, 0 Refill(s) Start Date: 12/13/13 Status: Ordered predniSONE 20 mg oral tablet 40 mg 2 tabs, Oral, Daily, X 3 days, # 6 tabs, 0 Refill(s), Pharmacy: [id number], 2 tabs Oral Daily,x3 days Start Date: 06/20/15 Stop Date: 06/23/15 Status: Ordered Proctozone HC 2.5% topical cream 1 geoff, Topical, TID, # 30 g, 0 Refill(s), Pharmacy: [facility] [id number] Start Date: 06/12/15 Status: Ordered RisperDAL 1 [...] Refill(s) Start Date: 11/02/14 Status: Ordered Results No data available for this section Immunizations Vaccine Date Refusal Reason tetanus/diphth/pertuss (Tdap) adult/adol 06/07/12 Procedures Procedure Date Related Diagnosis Body Site JULIANA - Total abdominal hysterectomy - 1 ovary 2006 Tonsillectomy Social History Social History Type Response Smoking Status Former smoker Assessment and Plan Extracted from: Title: Ambulatory Patient Education Author: Veronica Mullen PA-C Date : 06/20/15 Allergy Rash A rash is a change in the color or texture of your skin. There are many different types of rashes. You may have other problems that accompany your rash. CAUSES Infections. Allergic reactions. This can include allergies to pets or foods. Certain medicines. Exposure to certain chemicals, soaps, or cosmetics. Heat. Exposure to poisonous plants. Tumors, both cancerous and noncancerous. SYMPTOMS Redness. Scaly skin. Itchy skin. Dry or cracked skin. Bumps. Blisters. Pain. DIAGNOSIS Your caregiver may do a physical exam to determine what type of rash you have. A skin sample (biopsy) may be taken and examined under a microscope. TREATMENT Treatment depends on the type of rash you have. Your caregiver may prescribe certain medicines. For serious conditions, you may need to see a skin doctor ( employee relations consultant). HOME CARE INSTRUCTIONS Avoid the substance that caused your rash. Do not scratch your rash. This can cause infection. You may take cool baths to help stop itching. Only take [id number]-[id number] or prescription medicines as directed by your caregiver. Keep all follow-up appointments as directed by your caregiver. SEEK IMMEDIATE MEDICAL CARE IF: You have increasing pain, swelling, or redness. You have a fever. You have new or severe symptoms. You have body aches, diarrhea, or vomiting. Your rash is not better after 3 days. MAKE SURE YOU: Understand these instructions. Will watch your condition. Will get help right away if you are not doing well or get worse. Document Released: 06/05/2003 Document Revised: 09/06/2012 Document Reviewed: Exit[employer] Patient Information 2015 [employer]. This information is not intended to replace advice given to you by your health care provider. Make sure you discuss any questions you have with your health care provider. No follow up information was provided. Extracted from: Title: Office Visit Note- Rash Author: Veronica Mullen PA-C Date: Assessment/Plan Generalized rash This rash is very odd looking. I'm not exactly sure what has caused it. Will try Solu Medrol 125mg IM in the clinic today, with a few continuing days of oral prednisone. She is advised to try some Benadryl at bedtime as well. She can try some warm oatmeal baths or Epsom salt baths. I advised that she stop taking the Zinc supplement for now. RTC if not improving. Ordered: Office Visit Level 3 Est 45353 Orders: predniSONE, 40 mg 2 tabs, Oral, Daily, X 3 days, # 6 tabs, 0 Refill(s) , Pharmacy: [facility] [id number], 2 tabs Oral Daily,x3 days
--- OUTSIDE RECORDS SUMMARY | 2016-10-31 21:23 | XMS REPORT | Referral Summary ---
Author Author [facility] Organization [facility] Address Unknown Phone Unavailable Care Team Providers Care Radio Frequency Design Engineer Name Role Phone Marisol Peoples Primary Care Physician [phone] Encounter [facility] Date(s): 11/02/14 - 11/02/14 [facility] [address] [place] [address] Discharge Diagnosis: Orthostasis Discharge Disposition: 01-Home [...] Reactions, Alerts No Known Medication Allergies Medications [place] Thyroid 2 gm, Oral, qAM, 1gm qPM, [...] # 90 unknown unit, 3 Refill(s), eRx: [facility], TAKE 1 TABLET (0.1MG) BY ORAL ROUTE [...] 0 Refill(s) Start Date: 12/13/13 Status: Ordered [place] 5 mg-325 mg oral tablet 1 tabs, [...] 2.69 10*3 [0.80-3.30 10*3] (11/02/14 3:56 PM) [place] Absolute 0.47 10*3 [0.30-1.00 10*3] (11/02/14 3:56 [...] Metabolic Panel Office Visit Level 3 Est 58803 Return to Clinic Referrals to Other Providers Referred by: Danielle Chacon MD
--- OUTSIDE RECORDS SUMMARY | 2016-10-31 21:23 | XMS REPORT ---
Author Author GENERATED, SYSTEM Organization Unknown Address Unknown Phone Unavailable Care Team Providers Care Inorganic Chemistry Teacher Name Role Phone PP Unavailable Reason For Visit Reason for Visit from 10/12/2015 12:51 PM:* Pt Stated Reason for Adm : "I'm having delusional thoughts." Reason for Visit from 10/11/2015 7:35 PM:* Pt Stated Reason for Adm : "I'm having delusional thoughts." Chief Complaint SCHIYDAFFECTIVE D/O Social History Social History from 10/16/2015 12:56 PM:* Tobacco Use? : Former Smoker Social History from 10/12/2015 12:51 PM:* Tobacco Use? : Former Smoker Social History from 10/11/2015 7:35 PM:* Tobacco Use? : Former Smoker Functional Status Functional Status from 10/16/2015 8:00 AM:* LOC : Alert * Oriented To : Person,Place,Time,Event * Weight Bearing Status : Full * Assist Level : Independent * # Assists : Independent Functional Status from 10/15/2015 9:00 PM:* LOC : Alert * Oriented To : Person,Place,Time,Event * Weight Bearing Status : Full * Assist Level : Independent * # Assists : Independent Functional Status from 10/15/2015 8:30 AM:* LOC : Alert * Oriented To : Person,Place,Time,Event * Weight Bearing Status : Full * Assist Level : Independent * # Assists : Independent Functional Status from 10/14/2015 7:40 PM:* LOC : Alert * Oriented To : Person,Place,Time,Event * Weight Bearing Status : Full * Assist Level : Independent * # Assists : Independent Functional Status from 10/14/2015 9:00 AM:* LOC : Alert * Oriented To : Person,Place,Time,Event * Weight Bearing Status : Full * Assist Level : Independent * # Assists : Independent Functional Status from 10/13/2015 9:45 PM:* LOC : Alert * Oriented To : Person,Place,Time,Event * Weight Bearing Status : Full * Assist Level : Independent * # Assists : Independent Functional Status from 10/13/2015 9:45 AM:* LOC : Alert * Oriented To : Person,Place,Time,Event * Weight Bearing Status : Full * Assist Level : Independent * # Assists : Independent Functional Status from 10/12/2015 7:30 PM:* LOC : Alert * Oriented To : Person,Place,Time,Event * Weight Bearing Status : Full * Assist Level : Independent * # Assists : Independent Functional Status from 10/12/2015 8:30 AM:* LOC : Alert * Oriented To : Person,Place,Time * Weight Bearing Status : Full * Assist Level : Independent * # Assists : Independent Functional Status from 10/11/2015 7:35 PM:* LOC : Alert * Oriented To : Person,Place,Time,Event * Weight Bearing Status : Full * Assist Level : Independent * # Assists : Independent Vital Signs Hospital Vital Signs from 10/16/2015 5:57 AM:* Height : 5/10 ft,in * Temperature : 98.6 F * Pulse : 60 * Respirations : 20 * BP : 117/79 Hospital Vital Signs from 10/15/2015 6:01 AM:* Weight : 66.5/ kg * Height : 5/10 ft,in * Temperature : 98.2 F * Pulse : 54 * Respirations : 20 * BP : 125/76 Hospital Vital Signs from 10/14/2015 6:12 AM:* Height : 5/10 ft,in * Temperature : 98.4 F * Pulse : 66 * Respirations : 20 * BP : 133/80 Hospital Vital Signs from 10/13/2015 9:49 AM:* Height : 5/10 ft,in * Pulse : 58 * BP : 125/85 Hospital Vital Signs from 10/13/2015 5:34 AM:* Height : 5/10 ft,in * Temperature : 97.4 F * Pulse : 66 * Respirations : 18 * BP : 149/87 Hospital Vital Signs from 10/12/2015 10:09 AM:* Height : 5/10 ft,in Hospital Vital Signs from 10/12/2015 9:56 AM:* Height : 5/10 ft,in * Temperature : 98.6 F * Pulse : 73 * Respirations : 18 * BP : 131/91 Hospital Vital Signs from 10/12/2015 5:46 AM:* Height : 5/10 ft,in * Temperature : 97.8 F * Pulse : 104 * Respirations : 16 * BP : 136/97 Hospital Vital Signs from 10/11/2015 7:35 PM:* Weight : 68.2/ kg * Height : 5/10 ft,in Results Chemistry from 10/12/2015 4:53 AMGLUCOSE (FASTING) 91 MG/DL (65-99 MG/DL) TSH 0.009 UIU/ML L (0.340-4.820 UIU/ML) THYROXINE FREE (FT4) (LAB) 0.86 NG/DL (0.76-1.46 NG/DL) Chemistry from 10/11/2015 7:59 PMSODIUM 138 MMOL/L (136-145 MMOL/L) POTASSIUM 3.2 MMOL/L L (3.5-5.1 MMOL/L) CHLORIDE 105 MMOL/L (98-107 MMOL/L) TCO2 26.3 MMOL/L (21.0-32.0 MMOL/L) *ANION GAP 6.7 MMOL/L L (8.0-16.0 MMOL/L) BUN 4 MG/DL L (7-18 MG/DL) CREATININE 0.64 MG/DL (0.55-1.02 MG/DL) *BUN/CREATININE RATIO 6.3 L (9.1-17.0 ) GLUCOSE 85 MG/DL (65-99 MG/DL) *GFR EST NON AFR NIGERIEN >90 ML/MIN *GFRA EST AFR AMER >90 ML/MIN CALCIUM 9.0 MG/DL (8.5-10.1 MG/DL) BILIRUBIN TOTAL 0.50 MG/DL (0.20-1.00 MG/DL) TOTAL PROTEIN 6.9 GM/DL (6.4-8.2 GM/DL) ALBUMIN 3.7 GM/DL (3.4-5.0 GM/DL) *GLOBULIN 3.2 GM/DL (2.3-3.5 GM/DL) *A/G RATIO 1.2 MG/DL L (1.5-2.2 MG/DL) ALK PHOS 80 U/L (46-116 U/L) ALT (SGPT) 37 U/L (16-63 U/L) AST (SGOT) 23 U/L (15-37 U/L) Chemistry from 10/11/2015 7:31 PM*COCAINE NEGATIVE (NEG <150 ) *PCP NEGATIVE (NEG <25 ) *OXYCODONE NEGATIVE (NEG <100 ) *PROPOXYPHENE (NORPROPOXYPHENE) NEGATIVE (NEG <300 ) *CANNABINOIDS NEGATIVE (NEG <50 ) *BENZODIAZEINE NEGATIVE (NEG <150 ) *AMPHETAMINE NEGATIVE (NEG <500 ) *BARBITURATES NEGATIVE (NEG <200 ) *METHAMPHETAMINES NEGATIVE (NEG <500 ) *METHADONE (UR) NEGATIVE (NEG <200 ) *OPIATES NEGATIVE (NEG <100 ) *TRICYCLICS NEGATIVE (NEG <300 ) Hematology from 10/11/2015 7:59 PMWBC 6.2 X10e3/UL (3.6-11.2 X10e3/UL) RBC 4.71 X10e6/UL (3.63-4.92 X10e6/UL) HEMOGLOBIN 14.3 G/DL (11.0-14.3 G/DL) HEMATOCRIT 41.8 % (31.2-41.9 %) *MCV 88.8 FL (79.0-98.0 FL) *MCH 30.4 PG (27.0-33.0 PG) *MCHC 34.3 G/DL (32.0-36.0 G/DL) *RDW 12.2 % L (12.3-17.0 %) *RDWSD 38.1 (37.1-47.8 ) PLATELET 203 X10e3/UL (159-386 X10e3/UL) *MPV 9.4 FL (7.4-10.4 FL) Urinalysis from 10/11/2015 7:31 PM*URINE COLOR STRAW (STRAW/YELL/DK YELL ) *URINE APPEARANCE CLEAR (CLEAR ) URINE PH 7.5 (5.0-8.0 ) URINE SPECIFIC GRAVITY 1.010 (<=1.005->=1.030 ) *URINE GLUCOSE NEGATIVE MG/DL (NEGATIVE MG/DL) *URINE BILIRUBIN NEGATIVE (NEGATIVE ) *URINE KETONES NEGATIVE MG/DL (NEGATIVE MG/DL) *URINE BLOOD NEGATIVE (NEGATIVE ) *URINE PROTEIN NEGATIVE MG/DL (NEGATIVE MG/DL) *URINE UROBILINOGEN 0.2 EU/DL (0.2-1.0 EU/DL) *URINE NITRITES NEGATIVE (NEGATIVE ) *URINE LEUKOCYTES NEGATIVE (NEGATIVE ) UR NEGATIVE (NEGATIVE ) Reference Lab from 10/13/2015 5:33 AMT3 FREE (TRIODOTHYRONINE) 3.0 pg/mL (2.0- 4.4 pg/mL) Problems Encounter Diagnosis * Anxiety Status:Active. * Mood Disorder Status:Active. Additional Problems * Altered Mental Status Comment:Problem resolved by [facility] [employer] upon Discharge, Status:Resolved. * Fall Risk Comment:Problem resolved by [facility] [employer] upon Discharge, Status: Resolved. Encounters Encounter Diagnosis * Anxiety Status:Active. * Mood Disorder Status:Active. Plan of Care Follow-up Appointments from 10/16/2015 12:56 PM:* #1 Office appointment: : KYE Saldaña * #1 Date/Time : 10/17/2015 3:00 PM * Address # 1 : [phone] * #2 Office appointment: : Sandra Daniel * #2 Date/Time : 11/13/2015 12:45 PM * Address # 2 : [facility] [phone] Procedures No relevant procedures performed. Immunizations No immunizations administered or ordered. Hospital Course Hospital Discharge Instructions How to care for yourself at home from 10/16/2015 12:56 PM:* Discharge Activity : Activity as tolerated * Discharge Diet : As before hospitalization * Call your doctor if: : Fever over 101 F or severe chills,Chest pain or other unexplained symptoms,Tingling or numbness develops,A sudden increase or decrease in weight,You have persistent or worsening symptoms Allergies, Adverse Reactions, Alerts * gluten causes Digestive disorder. * Ritalin causes Unknown. * No Latex Allergy. * No IV Contrast Allergy. Medication It is the responsibility of the patient or patient lifeline representatives to confirm the list of medications with either the patient's personal care provider or the patient's follow-up care provider to ensure the patient has an appropriate list of medications to take at home. Discharge medications Changed medications* clonazePAM 1 mg Tablet, Ordered By: MARCI BARON Directions: 1 tablet oral twice a day for anxiety Additional Instructions: #60 NR * DULoxetine (Cymbalta) 60 mg capsule,delayed release(/EC), Ordered By: JVOAN RICO, PAC Directions: 2 capsule oral daily every morning for depression Additional Instructions: please cancel Paxil and armour thyroid refills * fludrocortisone 0.1 mg Tablet, Ordered By: MARCI BARON Directions: 1 tablet oral daily for for blood pressure * liothyronine (Cytomel) 5 mcg Tablet, Ordered By: MARCI BARON Directions: 1 tablet oral daily before breakfast for hypothyroidism * risperidone (RisPERDal) 2 mg Tablet, Ordered By: JOVAN RICO PAC Directions: 1 tablet oral daily for psychosis * topiramate 100 mg Tablet, Ordered By: MARCI BARON Directions: 1 tablet oral twice a day for mood stabilization Additional Instructions: DO NOT CHEW, BREAK, OR CRUSH. * traZODone 100 mg Tablet, Ordered By: MARCI BARON Directions: 1 tablet oral daily at bedtime for insomnia * risperidone (RisPERDal) 3 mg Tablet, Ordered By: MARCI BARON Directions: 1 tablet oral daily at bedtime for psychosis Stopped medications* thyroid (pork) ([place] Thyroid) 2 g am every Am and 1 g every PM Tablet Directions: oral * paroxetine HCl (Paxil) 40 mg Tablet Directions: 1 tablet oral PM
--- OUTSIDE RECORDS SUMMARY | 2016-10-31 21:23 | XMS REPORT ---
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 [address]-53 1.5mg oral daily January 15, 2016 every AM Seroquel [facility] [address]-81 200 MG Orally At bedtime 1 tablet Topiramate [facility] [address]-26 100 MG Orally Twice a day [address] [facility] [address]-11 40 MG Orally at bedtime January 08, 2016 1 tablet Duloxetine HCl [facility] [address]-84 60 MG Orally Every AM 1 capsule [address]epam [facility] [address]-99 1 MG Orally Once a day 1 tablet Fludrocortisone Acetate [facility] [address]-89 0.1 MG Orally once a day [address] [facility] [address]-47 50 MG Orally every AM and LUNCHTIME January 08, 2016 1 tablet Liothyronine Sodium [facility] [address]-30 5 MCG Orally Once a day 1 tablet in the AM Procedures Procedure Coding System Code Date OFFICE VISIT, EST-MOD. COMPLEXITY (25 MIN) CPT-4 30659 January 15, 2016 Vital Signs Date/Time: January 15, 2016 Temperature 98.5 F Height 68.5 in Weight 150.4 lbs Blood Pressure Diastolic 62 mm Hg Blood Pressure Systolic 112 mm Hg Cardiac Monitoring Heart Rate 82 /min BMI 22.53 Index Respiratory Rate 18 /min Results No Known Results Summary Purpose eClinicalWorks Submission
--- OUTSIDE RECORDS SUMMARY | 2016-10-31 21:23 | XMS REPORT ---
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
--- OUTSIDE RECORDS SUMMARY | 2016-10-31 21:23 | XMS REPORT | Referral Summary ---
Author Author [facility] Organization [facility] Address Unknown Phone Unavailable Care Team Providers Care Drug Safety Specialist Name Role Phone Marisol Peoples Primary Care Physician [phone] Encounter VC Date(s): 11/02/14 - 11/02/14 [facility] [address] [place] [id number] Discharge Diagnosis: Orthostasis Discharge Disposition: [...] Reactions, Alerts No Known Medication Allergies Medications [place] Thyroid 2 gm, Oral, qAM, 1gm qPM, [...] # 90 unknown unit, 3 Refill(s), eRx: [facility]86, TAKE 1 TABLET (0.1MG) BY ORAL ROUTE [...] 0 Refill(s) Start Date: 12/13/13 Status: Ordered [place] 5 mg-325 mg oral tablet 1 tabs, [...] 2.69 10*3 [0.80-3.30 10*3] (11/02/14 3:56 PM) [place] Absolute 0.47 10*3 [0.30-1.00 10*3] (11/02/14 3:56 [...] Metabolic Panel Office Visit Level 3 Est 55681 Return to Clinic Referrals to Other Providers Referred by: Danielle Chacon MD
--- OUTSIDE RECORDS SUMMARY | 2016-10-31 21:23 | XMS REPORT ---
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
--- OUTSIDE RECORDS SUMMARY | 2016-10-31 21:23 | XMS REPORT ---
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
--- OUTSIDE RECORDS SUMMARY | 2016-10-31 21:23 | XMS REPORT | Referral Summary ---
Author Author [facility] Organization [facility] Address Unknown Phone Unavailable Care Team Providers Care Special Delivery Clerk Name Role Phone Marisol Peoples Primary Care Physician [phone] Encounter VC Date(s): 11/02/14 - 11/02/14 [facility] [address] [place] [address] Discharge Diagnosis: Orthostasis Discharge Disposition: [...] Reactions, Alerts No Known Medication Allergies Medications [place] Thyroid 2 gm, Oral, qAM, 1gm [...] # 90 unknown unit, 3 Refill(s), eRx: [id number], TAKE 1 TABLET (0.1MG) BY ORAL ROUTE [...] 0 Refill(s) Start Date: 12/13/13 Status: Ordered [place] 5 mg-325 mg oral tablet 1 tabs, [...] 2.69 10*3 [0.80-3.30 10*3] (11/02/14 3:56 PM) [place] Absolute 0.47 10*3 [0.30-1.00 10*3] (11/02/14 3:56 [...] Metabolic Panel Office Visit Level 3 Est 12501 Return to Clinic Referrals to Other Providers Referred by: Danielle Chacon MD
--- OUTSIDE RECORDS SUMMARY | 2016-10-31 21:24 | XMS REPORT ---
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
--- OUTSIDE RECORDS SUMMARY | 2016-10-31 21:24 | XMS REPORT ---
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 Chacon 1 tablet Liothyronine Sodium [facility] [address]-55 5 MCG Orally twice daily 1 tabs in AM sand 2 in PM Risperdal [facility] [address]-58 1 MG Orally 1 tab every AM December 02, 2014 1 tablet Lortab 2.5 NDC 0 not defined Trazodone HCl [facility] [address]-19 100 MG Orally Once a day 1 tablet at bedtime [place] Thyroid [facility] [address]-95 30 MG Orally as directed 2 tabs in AM and 1 tabs every PM Topiramate [facility] [address]-70 100 MG Orally as directed for mood stabilization 1 tablet in AM, 1 in afternoon, and 1 tabs at H.S. Paxil [facility] [address]-45 40 MG Orally Once a day at bedtime 1 tablet Duloxetine HCl [facility] [address]-14 60 MG Orally Once a day in AM for mood 2 capsules Risperdal [facility] [address]-75 3 MG Orally Once a day in the evening December 08, 2014 1 tablet Clonazepam [facility] [address]-63 0.5 MG Orally twice daily anxiety; no early refills 1/2 tablet in afternoon and at bedtime Procedures Procedure Coding System Code Date OFFICE VISIT, EST-MOD. COMPLEXITY (25 MIN) CPT-4 91952 Apr 24, 2015 Vital Signs Date/Time: Apr 24, 2015 Height 68.5 in Weight 169.12 lbs Temperature 98.0 F Blood Pressure Diastolic 70 mm Hg Blood Pressure Systolic 122 mm Hg Cardiac Monitoring Heart Rate 72 /min BMI 25.34 Index Respiratory Rate 16 /min Results No Known Results Summary Purpose eClinicalWorks Submission
--- OUTSIDE RECORDS SUMMARY | 2016-10-31 21:24 | XMS REPORT ---
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
--- OUTSIDE RECORDS SUMMARY | 2016-10-31 21:24 | XMS REPORT ---
Author Sandra Lewis Organization eClinicalWorks Address Unknown Phone Unavailable Care Team Providers Care Ethnoarchaeologist Name Role Phone Sandra Daniel CP Unavailable [...]
--- OUTSIDE RECORDS SUMMARY | 2016-10-31 21:24 | XMS REPORT ---
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
--- OUTSIDE RECORDS SUMMARY | 2016-10-31 21:24 | XMS REPORT ---
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 Problem Major depressive disorder, recurrent, moderate F33.1 Active Problem Anxiety disorder, unspecified F41.9 Active Problem Constipation, unspecified K59.00 Active Problem Personal history of other diseases of the digestive system Z87.19 Active Medications Medication Code System Code Instructions Start Date End Date Status Dosage Seroquel [facility] [address]-33 200 MG Orally At bedtime 1 tablet Seroquel [facility] [address]-77 50 MG Orally every AM and LUNCHTIME January 08, 2016 1 tablet Paxil [facility] [address]-72 40 MG Orally at bedtime January 08, 2016 1 tablet Results No Known Results Summary Purpose eClinicalWorks Submission
--- OUTSIDE RECORDS SUMMARY | 2016-10-31 21:24 | XMS REPORT ---
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
--- OUTSIDE RECORDS SUMMARY | 2016-10-31 21:24 | XMS REPORT ---
Author Author Sandra Daniel Organization eClinicalWorks Address Unknown Phone Unavailable Care Team Providers Care Manager Shop Name Role Phone Sandra Daniel Unavailable Allergies No Known Allergies Problems Problem Type Condition Code Onset Dates Condition Status Problem Anxiety state, unspecified 300.00 Active Problem Unspecified schizophrenia, unspecified condition 295.90 Active Medications Medication Code System Code Instructions Start Date End Date Status Dosage [facility] [address]-53 3 MG Orally Once a day in AM 2 tablets Results No Known Results Summary Purpose eClinicalWorks Submission
--- OUTSIDE RECORDS SUMMARY | 2016-10-31 21:24 | XMS REPORT ---
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
--- OUTSIDE RECORDS SUMMARY | 2016-10-31 21:24 | XMS REPORT | Referral Summary ---
Author Author [facility], [facility] Organization [facility] Address Unknown Phone Unavailable Care Team Providers Care Full Time Staff Interpreter Name Role Phone Marisol Peoples Primary Care Physician [phone] Encounter Date(s): 09/20/15 - 09/20/15 [facility], [address] [place] [address]- Discharge Diagnosis: Ileus Discharge Disposition: 01-Home or Self Care Attending Physician: Veronica Mullen PA-C Admitting Physician: Veronica Mullen PA-C Vital Signs Most recent to 1 oldest [Reference Range]: Peripheral Pulse 76 bpm Rate [60-100 bpm] (09/20/15 1:02 PM) Respiratory Rate 18 br/min [14-20 br/min] (09/20/15 1:02 PM) Blood Pressure 120/84 mmHg [90-140/60-90 mmHg] (09/20/15 1:02 PM) Problem List Condition Effective Dates Status [...] Substance Reaction Severity Status shellfish Active Medications [place] Thyroid 2 gm, Oral, qAM, 1gm qPM, [...] EVERY DAY, # 90 unknown unit, eRx: [facility] [address], TAKE 1 TABLET (0.1MG) BY ORAL ROUTE [...] 0 Refill(s) Start Date: 12/13/13 Status: Ordered [place] 5 mg-325 mg oral tablet 1 tabs, Oral, q6hr, as needed for pain, not to exceed 8 tablets/day, # 30 tabs, 0 Refill(s) Start Date: 09/10/15 Status: Ordered Paxil 30 mg oral tablet 30 mg 1 tabs, Oral, Daily, REPORTS TAKES 40 MG QD, # 30 tabs, 0 Refill(s) Start Date: 12/13/13 Status: Ordered Proctozone HC 2.5% topical cream 1 geoff, Topical, TID, # 30 g, 0 Refill(s), Pharmacy: [facility] [id number] Start Date: 06/12/15 Status: Ordered RisperDAL 1 [...] Education Author: Veronica Mullen PA-C Date : 09/20/15 Emergency Medicine Abdominal Pain Many things can [...] any discomfort you are experiencing: Only take ukxu-yzg-vpeztmk or prescription medicines as directed by your [...] Released: 03/25/2006 Document Revised: 06/20/2014 Document Reviewed: [facility] Patient Information 2015 [facility] Family Medicine Ileus The intestine (bowel, or gut) is a long, muscular tube connecting your stomach to your rectum. If the intestine stops working, food cannot pass through. This is called an ileus. This can happen for a variety of reasons. Ileus is a major medical problem that usually requires hospitalization. If your intestine stops working because of a blockage, this is called a bowel obstruction and is a different condition. CAUSES Surgery in your abdomen. This can last from a few hours to a few days. An infection or inflammation in the belly (abdomen). This includes inflammation of the lining of the abdomen (peritonitis). Infection or inflammation in other parts of the body, such as pneumonia or pancreatitis. Passage of gallstones or kidney stones. Damage to the nerves or blood vessels which go to the bowel. Imbalance in the salts in the blood (electrolytes). Injury to the brain and/or spinal cord. Medications. Many medications can cause ileus or make it worse. The most common of these are strong pain medications. SYMPTOMS Symptoms of bowel obstruction come from the bowel inactivity. They may include: Bloating. Your belly gets bigger (distension). Pain or discomfort in the abdomen. Poor appetite, feeling sick to your stomach (nausea), and vomiting. You may also not be able to hear your normal bowel sounds, such as "growling" in your stomach. DIAGNOSIS Your history and a physical exam will usually suggest to your caregiver that you have an ileus. X-rays or a CT scan of your abdomen will confirm the diagnosis. X-rays, CT scans, and lab tests may also suggest the cause. TREATMENT Rest the intestine until it starts working again. This is most often accomplished by: Stopping intake of oral food and drink. Dehydration is prevented by using IV (intravenous) fluids. Sometimes, a nasogastric tube (NG tube) is needed. This is a narrow plastic tube inserted through your nose and into your stomach. It is connected to suction to keep the stomach emptied out. This also helps treat the nausea and vomiting. If there is an imbalance in the electrolytes, they are corrected with supplements in your intravenous fluids. Medications that might make an ileus worse might be stopped. There are no medications that reliably treat ileus, though your caregiver may suggest a trial of certain medications. If your condition is slow to resolve, you will be reevaluated to be sure another condition, such as a blockage, is not present. Ileus is common and usually has a good outcome. Depending on the cause of your ileus, it usually can be treated by your caregivers with good results. Sometimes , specialists (surgeons or gastroenterologists) are asked to assist in your care. HOME CARE INSTRUCTIONS Follow your caregiver's instructions regarding diet and fluid intake. This will usually include drinking plenty of clear fluids, avoiding alcohol and caffeine, and eating a gentle diet. Follow your caregiver's instructions regarding activity. A period of rest is sometimes advised before returning to work or school. Take only medications prescribed by your caregiver. Be especially careful with narcotic pain medication, which can slow your bowel activity and contribute to ileus. Keep any follow-up appointments with your caregiver or specialists. SEEK MEDICAL CARE IF: You have a recurrence of nausea, vomiting, or abdominal discomfort. You develop fever of more than 102 F (38.9 C). SEEK IMMEDIATE MEDICAL CARE IF: You have severe abdominal pain. You are unable to keep fluids down. This information is not intended to replace advice given to you by your health care provider. Make sure you discuss any questions you have with your health care provider. Document Released: 06/17/2004 Document Revised: 10/30/2014 Document Reviewed: [facility] Patient Information 2015 [email or web address]. No follow up information was provided. Extracted from: Title: Office Visit Note- Ileus Author: Veronica Mullen PA-C Date: Assessment/Plan Abdominal pain See below Ordered: Office Visit Level 4 Est 86192 Ileus Her x-ray was read as mild ileus, although she does have pretty impressive loops of bowel. No obstruction at this time. She does take narcotics. I recommended that she stop any solid foods and stick to a clear liquid diet at home for now. No Imodium or Pepto-Bismol at this time. She is to monitor her sx closely, and she is to come back in if not any better, or encouraged to go to ED if worsening. Ordered: Office Visit Level 4 Est 53257
--- OUTSIDE RECORDS SUMMARY | 2016-10-31 21:24 | XMS REPORT ---
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 Problem Major depressive disorder, recurrent, moderate F33.1 Active Problem Anxiety disorder, unspecified F41.9 Active Assessment Anxiety disorder, unspecified F41.9 Active 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 Problem Constipation, unspecified K59.00 Active Problem Personal history of other diseases of the digestive system Z87.19 Active Medications Medication Code System Code Instructions Start Date End Date Status Dosage Trazodone HCl [facility] [address]-17 100 MG Orally Once a day 1 tablet at bedtime Vraylar [facility] [address]-35 3 mg oral daily January 15, 2016 Apr 15, 2016 every am Liothyronine Sodium [facility] [address]-75 5 MCG Orally Once a day 1 tablet in the AM Hydrocodone-Acetaminophen [facility] [address]-29 5-500 MG Orally every 6 hrs 1 capsule as needed Topiramate [facility] [address]-45 100 MG Orally Twice a day 1 tablet Paxil [facility] [address]-86 40 MG Orally at bedtime January 08, 2016 1 tablet Clonazepam [facility] [address]-14 1 MG Orally Once a day 1 tablet [place] Thyroid [facility] [address]-82 120 MG Orally Once a day 1 tablet Seroquel [facility] [address]-16 50 MG Orally every AM and LUNCHTIME January 08, 2016 1 tablet Fludrocortisone Acetate [facility] [address]-68 0.1 MG Orally once a day 1 tablet Duloxetine HCl [facility] [address]-34 60 MG Orally Every AM 1 capsule Seroquel [facility] [address]-04 200 MG Orally At bedtime 1 tablet Procedures Procedure Coding System Code Date OFFICE VISIT, EST-LOW COMPLEXITY (15 MIN.) CPT-4 89808 Feb 15, 2016 Vital Signs Date/Time: Feb 15, 2016 Temperature 97.5 F Height 68.5 in Weight 158 lbs Blood Pressure Diastolic 62 mm Hg Blood Pressure Systolic 108 mm Hg Cardiac Monitoring Heart Rate 84 /min BMI 23.67 Index Respiratory Rate 18 /min Results No Known Results Summary Purpose eClinicalWorks Submission
--- OUTSIDE RECORDS SUMMARY | 2016-10-31 21:24 | XMS REPORT | Referral Summary ---
Author Author [facility] Organization [facility] Address Unknown Phone Unavailable Care Team Providers Care Tankman Name Role Phone Marisol Peoples Primary Care Physician [phone] Encounter VC Date(s): 11/02/14 - 11/02/14 [facility] [address] [place] [address] Discharge Diagnosis: Orthostasis Discharge Disposition: [...] Reactions, Alerts No Known Medication Allergies Medications [place] Thyroid 2 gm, Oral, qAM, 1gm qPM, [...] # 90 unknown unit, 3 Refill(s), eRx: [facility] [address], TAKE 1 TABLET (0.1MG) BY ORAL ROUTE [...] 0 Refill(s) Start Date: 12/13/13 Status: Ordered [place] 5 mg-325 mg oral tablet 1 tabs, [...] 2.69 10*3 [0.80-3.30 10*3] (11/02/14 3:56 PM) [place] Absolute 0.47 10*3 [0.30-1.00 10*3] (11/02/14 3:56 [...] Metabolic Panel Office Visit Level 3 Est 48378 Return to Clinic Referrals to Other Providers Referred by: Danielle Chacon MD
--- OUTSIDE RECORDS SUMMARY | 2016-10-31 21:24 | XMS REPORT ---
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 [address]-66 30 MG Orally Once a day at bedtime 1 tablet Results No Known Results Summary Purpose eClinicalWorks Submission
--- OUTSIDE RECORDS SUMMARY | 2016-10-31 21:24 | XMS REPORT ---
Author Author Sandra Daniel Organization [employer] Address Unknown Phone Unavailable Care Team Providers Care Refrigerator Car Icer Name Role Phone Sandra Daniel CP Unavailable Allergies No Known Allergies Problems Problem Type Condition Code Onset Dates Condition Status Problem Anxiety state, unspecified 300.00 Active Problem Unspecified schizophrenia, unspecified condition 295.90 Active Medications No Known Medications Results No Known Results Summary Purpose eClinicalWorks Submission
--- OUTSIDE RECORDS SUMMARY | 2016-10-31 21:24 | XMS REPORT ---
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
--- OUTSIDE RECORDS SUMMARY | 2016-10-31 21:24 | XMS REPORT ---
Author Author GENERATED, SYSTEM Organization Unknown Address Unknown Phone Unavailable Care Team Providers Care Senior Mobile Application Developer Name Role Phone PP Unavailable Reason For Visit Reason for Visit from 08/13/2015 4:39 PM:* Pt Stated Reason for Adm : SI and delusions Reason for Visit from 08/11/2015 3:14 AM:* Pt Stated Reason for Adm : SI and delusions Chief Complaint SCHIZOPHRENIA Social History Social History from 08/14/2015 2:02 PM:* Tobacco Use? : Former Smoker Social History from 08/13/2015 4:39 PM:* Tobacco Use? : Former Smoker Social History from 08/11/2015 3:14 AM:* Tobacco Use? : Former Smoker Functional Status Functional Status from 08/14/2015 8:12 AM:* LOC : Alert * Oriented To : Person,Place,Time,Event * Weight Bearing Status : Full * Assist Level : Independent * # Assists : Independent Functional Status from 08/13/2015 8:00 PM:* LOC : Alert * Oriented To : Person,Place,Event * Weight Bearing Status : Full * Assist Level : Independent * # Assists : Independent Functional Status from 08/13/2015 10:12 AM:* LOC : Alert * Oriented To : Person,Place,Time,Event * Weight Bearing Status : Full * Assist Level : Independent * # Assists : Independent Functional Status from 08/12/2015 7:45 PM:* LOC : Alert * Oriented To : Person,Place,Time * Weight Bearing Status : Full * Assist Level : Independent * # Assists : Independent Functional Status from 08/12/2015 8:00 AM:* LOC : Alert * Oriented To : Person,Place,Time * Weight Bearing Status : Full * Assist Level : Independent * # Assists : Independent Functional Status from 08/11/2015 8:02 PM:* LOC : Alert * Oriented To : Person,Place,Time,Event * Weight Bearing Status : Full * Assist Level : Independent * # Assists : Independent Functional Status from 08/11/2015 9:13 AM:* LOC : Alert * Oriented To : Person,Place,Time,Event * Weight Bearing Status : Full * Assist Level : Independent * # Assists : Independent Functional Status from 08/11/2015 3:14 AM:* LOC : Drowsy * Oriented To : Person,Place,Time,Event * Weight Bearing Status : Full * Assist Level : Independent * # Assists : Independent Vital Signs Hospital Vital Signs from 08/14/2015 6:04 AM:* Height : 5/10 ft,in * Temperature : 98.2 F * Pulse : 70 * Respirations : 16 * BP : 123/82 Hospital Vital Signs from 08/13/2015 10:09 AM:* Weight : 70.3/ kg * Height : 5/10 ft,in Hospital Vital Signs from 08/13/2015 7:10 AM:* Weight : 70.3/ kg * Height : 5/10 ft,in Hospital Vital Signs from 08/13/2015 7:06 AM:* Height : 5/10 ft,in * Temperature : 98.9 F * Pulse : 72 * Respirations : 16 * BP : 129/81 Hospital Vital Signs from 08/12/2015 6:06 AM:* Height : 5/10 ft,in * Temperature : 97.7 F * Pulse : 73 * Respirations : 18 * BP : 132/87 Hospital Vital Signs from 08/11/2015 3:43 PM:* Height : 5/10 ft,in * Temperature : 99.1 F * Pulse : 61 * Respirations : 16 * BP : 146/89 Hospital Vital Signs from 08/11/2015 6:12 AM:* Height : 5/10 ft,in * Temperature : 99.0 F * Pulse : 129 * Respirations : 14 * BP : 92/60 Hospital Vital Signs from 08/11/2015 6:11 AM:* Height : 5/10 ft,in * Temperature : 98.8 F * Pulse : 119 * Respirations : 16 * BP : 97/66 Hospital Vital Signs from 08/11/2015 6:10 AM:* Height : 5/10 ft,in * Temperature : 99 F * Pulse : 88 * Respirations : 14 * BP : 126/84 Hospital Vital Signs from 08/11/2015 3:14 AM:* Weight : 72.2/ kg * Height : 5/10 ft,in Hospital Vital Signs from 08/11/2015 2:32 AM:* Weight : 72.2/ kg * Height : 5/10 ft,in * Temperature : 99.2 F * Pulse : 83 * Respirations : 20 * BP : 127/86 Results Chemistry from 08/12/2015 7:34 AMGLUCOSE (FASTING) 85 MG/DL (65-99 MG/DL) Problems Encounter Diagnosis * Altered Mental Status Status:Active. * Fall Risk Status:Active. Encounters Encounter Diagnosis * Altered Mental Status Status:Active. * Fall Risk Status:Active. Plan of Care Follow-up Appointments from 08/14/2015 2:02 PM:* #1 Office appointment: : Aissatou Aguayo * #1 Date/Time : 08/16/2015 10:00 AM * Address # 1 : [place] * #2 Office appointment: : Sandra Daniel * #2 Date/Time : 08/28/2015 12:00 PM * Address # 2 : [facility] Procedures No relevant procedures performed. Immunizations No immunizations administered or ordered. Hospital Course Hospital Discharge Instructions How to care for yourself at home from 08/14/2015 2:02 PM:* Discharge Activity : Activity as tolerated * Discharge Diet : As before hospitalization * Call your doctor if: : Fever over 101 F or severe chills,Chest pain or other unexplained symptoms,Tingling or numbness develops,A sudden increase or decrease in weight,You have persistent or worsening symptoms,If you have Heart Failure and you gain 3 pounds within 1 week or your symptoms worsen. (Weigh at home tomorrow morning) Allergies, Adverse Reactions, Alerts * No Latex Allergy. * No IV Contrast Allergy. * No Known Drug Allergies. * No Known Food Allergies. * No Known Allergies. Medication It is the responsibility of the patient or patient textile designs sales representative to confirm the list of medications with either the patient's personal care provider or the patient's follow-up care provider to ensure the patient has an appropriate list of medications to take at home. Discharge medications Continued medications* progesterone micronized 100 mg Capsule, Ordered By: MARCI BARON Directions: 1 capsule oral daily at bedtime Changed medications* clonazePAM 0.5 mg Tablet, Ordered By: MARCI BARON Directions: 0.5 tablet oral twice a day for anxiety Additional Instructions: 1200 AND 1900 -- START AT 1200 * DULoxetine (Cymbalta) 30 mg capsule,delayed release(DR/EC), Ordered By: AISSATOU RICO PAC Directions: 3 capsules oral daily for depression * fludrocortisone 0.1 mg Tablet, Ordered By: MARCI BARON Directions: 1 tablet oral daily for hypotension * liothyronine 5 mcg Tablet, Ordered By: AISSATOU RICO, PAC Directions: 1 tab am, 2 tabs hs oral twice a day for hypothyroidism * paroxetine HCl 25 mg Tablet Extended Release 24 hr, Ordered By: MARCI BARON Directions: 1 tablet oral daily at bedtime for depression * risperidone (RisPERDal) 1 mg Tablet, Ordered By: AISSATOU RICO PAC Directions: 1 tablet oral twice a day for mood stabilization * thyroid (pork) ([place] Thyroid) 60 mg Tablet, Ordered By: MARCI BARON Directions: 2 tabs am, 1 tab hs oral daily every morning for hypothyroidism * topiramate (ToPAMax) 100 mg Tablet, Ordered By: MARCI BARON Directions: 1 tablet oral three times a day for mood stabilization Stopped medications* HYDROcodone-acetaminophen 5 mg-325 mg Tablet Directions: 1 tablet oral every 5 hours PRN pain Additional Instructions: not present on UDS * traZODone 100 mg Tablet Directions: 1 tablet oral daily at bedtime
--- OUTSIDE RECORDS SUMMARY | 2016-10-31 21:24 | XMS REPORT ---
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
--- OUTSIDE RECORDS SUMMARY | 2016-10-31 21:24 | XMS REPORT | Referral Summary ---
Author Author [facility], [facility] Organization [facility] Address Unknown Phone Unavailable Care Team Providers Care Hot Mill Observer Name Role Phone Marisol Peoples Primary Care Physician [phone] Encounter Date(s): 10/01/15 - 10/01/15 [facility], [address] [place] [address]- Discharge Diagnosis: Ileus Discharge Diagnosis: Abdominal pain Discharge Disposition: 01-Home or Self Care Attending Physician: Veronica Mullen PA-C Vital Signs Most recent to 1 oldest [Reference Range]: Temperature Tympanic 36.7 degC [36.6-38.1 degC] (10/01/15 1:55 PM) Peripheral Pulse 72 bpm Rate [60-100 bpm] (10/01/15 1:55 PM) Respiratory Rate 16 br/min [14-20 br/min] (10/01/15 1:55 PM) Blood Pressure 126/82 mmHg [90-140/60-90 mmHg] (10/01/15 1:55 PM) Problem List Condition Effective Dates Status [...] Substance Reaction Severity Status shellfish Active Medications [place] Thyroid 2 gm, Oral, qAM, 1gm qPM, [...] EVERY DAY, # 90 unknown unit, eRx: [facility] [id number], TAKE 1 TABLET (0.1MG) BY ORAL ROUTE [...] 0 Refill(s) Start Date: 12/13/13 Status: Ordered [place] 5 mg-325 mg oral tablet 1 tabs, [...] TID, # 30 g, 0 Refill(s), Pharmacy: [facility] [id number] Start Date: 06/12/15 Status: Ordered RisperDAL 1 [...] Education Author: Veronica Mullen PA-C Date : 10/01/15 Emergency Medicine Abdominal Pain Many things can [...] any discomfort you are experiencing: Only take ecbt-znw-ohsgxjw or prescription medicines as directed by your [...] Released: 03/25/2006 Document Revised: 06/20/2014 Document Reviewed: [facility] Patient Information 2015 [employer]. [facility] Medicine Ileus The intestine (bowel, or gut) [...] Released: 06/17/2004 Document Revised: 10/30/2014 Document Reviewed: [facility] Patient Information 2015 [employer]. No follow up information was provided. Extracted from: Title: Office Visit Note- F/u ileus Author: Veronica Mullen PA-C Date : 10/01/15 Assessment/Plan Abdominal pain, Abdominal pain See below. Ordered: Office Visit Level 3 Est 58964 Ileus, Ileus X-rays done again today. Shows some improvement, but pt has notbeen compliant withher diet. D/wher again that it is important to rest the bowels , but she has tostay hydrated. Needs tostay consistent with clearliquid diet for at least 3 days, andadvised pt to RTC for recheck at that time. There was also noted some moderate stool in the L colon. Hopefully with the clear liquid diet, this stool will be cleared out and the ileus will improve. Pt voiced understanding. Ordered: Office Visit Level 3 Est 58012
--- OUTSIDE RECORDS SUMMARY | 2016-10-31 21:24 | XMS REPORT | Referral Summary ---
Author Author [facility] Organization [facility] Address Unknown Phone Unavailable Care Team Providers Care Drug Enforcement Agent Name Role Phone Marisol Peoples Primary Care Physician [phone] Encounter VC Date(s): 11/02/14 - 11/02/14 [facility] [address] [place] [address] Discharge Diagnosis: Orthostasis Discharge Disposition: 01-Home or [...] Reactions, Alerts No Known Medication Allergies Medications [place] Thyroid 2 gm, Oral, qAM, 1gm qPM, [...] # 90 unknown unit, 3 Refill(s), eRx: [facility] [address], TAKE 1 TABLET (0.1MG) BY ORAL ROUTE [...] 0 Refill(s) Start Date: 12/13/13 Status: Ordered [place] 5 mg-325 mg oral tablet 1 tabs, [...] 2.69 10*3 [0.80-3.30 10*3] (11/02/14 3:56 PM) [place] Absolute 0.47 10*3 [0.30-1.00 10*3] (11/02/14 3:56 [...] Metabolic Panel Office Visit Level 3 Est 76352 Return to Clinic Referrals to Other Providers Referred by: Danielle Chacon MD
--- OUTSIDE RECORDS SUMMARY | 2016-10-31 21:24 | XMS REPORT ---
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 [address]-52 3 MG Orally Once a day in the evening December 08, 2014 1 tablet Results No Known Results Summary Purpose eClinicalWorks Submission
--- OUTSIDE RECORDS SUMMARY | 2016-10-31 21:24 | XMS REPORT ---
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
--- OUTSIDE RECORDS SUMMARY | 2016-10-31 21:24 | XMS REPORT ---
Author Author Sandra Daniel Organization [employer] Address Unknown Phone Unavailable Care Team Providers Care Glue Drier Operator Name Role Phone Sandra Daniel CP [...] Start Date End Date Status Dosage Topiramate [facility] [address]-10 100 MG Orally Twice a day 1 tablet Results No Known Results Summary Purpose eClinicalWorks Submission
--- OUTSIDE RECORDS SUMMARY | 2016-10-31 21:24 | XMS REPORT ---
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
--- OUTSIDE RECORDS SUMMARY | 2016-10-31 21:24 | XMS REPORT ---
Author Author Sandra Daniel Organization [employer] Address Unknown Phone Unavailable Care Team Providers Care Improvement Intern Name Role Phone Sandra Daniel CP Unavailable [...] Start Date End Date Status Dosage Topiramate [facility] [address]-16 100 MG Orally Twice a day 1 tablet Results No Known Results Summary Purpose eClinicalWorks Submission
--- OUTSIDE RECORDS SUMMARY | 2016-10-31 21:24 | XMS REPORT ---
Author Sandra Lewis [facility] eClinical[employer] Address Unknown Phone Unavailable Care Team Providers Care Central Office Technician Name Role Phone Sandra Daniel CP Unavailable Allergies, Adverse Reactions, Alerts Substance Reaction Event Type Ritalin psychosis Drug Allergy Gluten GI distress Non Drug Allergy Problems Problem Type Condition ICD-9 Code Onset Dates Condition Status Problem Anxiety state, unspecified 300.00 Active Assessment Unspecified schizophrenia, unspecified condition 295.90 Active Problem Unspecified schizophrenia, unspecified condition 295.90 Active Assessment Anxiety state, unspecified 300.00 Active Medications Medication Code System Code Instructions Start Date End Date Status Dosage Duloxetine HCl [facility] [address]-02 60 MG Orally Once a day in AM for mood 2 capsules Invega [facility] [address]-32 6 MG Orally Once a day 1 tablet Topiramate [facility] [address]-36 100 MG Orally as directed for mood stabilization 1 tablet in AM, 1 in afternoon, and 1 tabs at H.S. Paxil [facility] [address]-68 30 MG Orally Once a day at bedtime 1 tablet Fludrocortisone Acetate [facility] [address]-91 0.1 MG Orally once a day as directed by Dr. Chacon 1 tablet Diclofenac Potassium [facility] [address]-05 50 MG Orally Twice a day PRN pain 1 tablet Liothyronine Sodium [facility] [address]-52 5 MCG Orally twice daily 1 tabs in AM sand 2 in PM Clonazepam [facility] [address]-51 0.5 MG Orally twice daily PRN anxiety 1/2 tablet in afternoon and at bedtime Trazodone HCl [facility] [address]-43 100 MG Orally Once a day 1 tablet at bedtime [place] Thyroid [facility] [address]-13 30 MG Orally as directed 2 tabs in AM and 1 tabs every PM Procedures Procedure Coding System Code Date OFFICE VISIT, EST-MOD. COMPLEXITY (25 MIN) CPT-4 36134 September 08, 2014 Vital Signs Date/Time: September 08, 2014 Height 68.5 in Weight 164.5 lbs Temperature 97.6 F Blood Pressure Diastolic 76 mm Hg Blood Pressure Systolic 114 mm Hg Cardiac Monitoring Heart Rate 56 /min BMI 24.65 Index Respiratory Rate 16 /min Results No Known Results Summary Purpose eClinicalWorks Submission
--- OUTSIDE RECORDS SUMMARY | 2016-10-31 21:25 | XMS REPORT | Continuity of Care Document ---
Author Author [facility] Organization [facility] Address Unknown Phone Unavailable Care Team Providers Care Pool Hand Name Role Phone RICKY MCFARLAND MD Primary Care Physician [phone] Insurance Providers Payer Name Policy Number Subscriber Name Relationship [facility] [id number] Thea Bautista 16 Self Problems Medical Problems Problem Onset Date Status atypical chest pain Unknown Active Headache Unknown Active Headache Unknown Active Headache Unknown Active Medications Medication Dose Route Sig Days/Qty Instructions Order Date Discontinued Date Status Duloxetine Hcl 60 Mg PO TWICE A DAY 09/15/10 Active Paroxetine Hcl DAILY 09/15/10 01/22/11 Discontinued [Risperdal 10MG] 10 Mg PO DAILY 09/15/10 10/17/12 Discontinued Topiramate 100 Mg PO DAILY 09/15/10 06/25/12 Discontinued Topiramate 200 Mg PO BEDTIME 09/15/10 Active [Nwcprbogh32 Mg] 20 Mg PO BEDTIME 09/15/10 06/25/12 Discontinued Multivitamins 1 Tab PO DAILY 01/22/11 Active Lamotrigine 100 Mg PO DAILY 01/22/11 06/23/11 Discontinued [Vybrin] 20 Mg PO DAILY 06/23/11 09/05/11 Discontinued [[place]] PO DAILY 06/23/11 10/17/12 Discontinued Clonazepam 1 Mg PO BEDTIME 09/05/11 Active Fludrocortisone Acetate 0.1 Mg PO DAILY 06/25/12 Active [Invega] 10/17/12 Active Paroxetine HCl 30 Mg PO DAILY 07/18/14 Active Trazodone HCl 100 Mg PO BEDTIME Take 1 tablet, by mouth, one time a day (at BEDTIME). 07/18/14 Active Levothyroxine Sodium 200 Mcg PO TWICE A DAY 07/18/14 Active Liothyronine Sodium 2 Tab TWICE A DAY 90 Qty 07/18/14 Active Social History Social History Problem Response Recorded Date/Time Hx Alcohol Use No 07/18/2014 5:36pm Tobacco Usage none 01/21/2014 5:16am Query Response Start Date Stop Date Smoking Status Never smoker Hospital Discharge Instructions No hospital discharge instructions. Plan of Care No plan of care. Functional Status Query Response Date Recorded Physical Hygiene Self July 18, 2014 5:36pm Disabilities None July 18, 2014 5:36pm Devices Used None July 18, 2014 5:36pm Dressing Self July 18, 2014 5:36pm Ambulation Self July 18, 2014 5:36pm Diet Self July 18, 2014 5:36pm Mental Status Alert July 18, 2014 5:55pm Disabilities None July 18, 2014 5:36pm Devices Used None July 18, 2014 5:36pm Physical Hygiene Self July 18, 2014 5:36pm Dressing Self July 18, 2014 5:36pm Ambulation Self July 18, 2014 5:36pm Diet Self July 18, 2014 5:36pm Allergies, Adverse Reactions, Alerts Allergen Type Severity Reaction Status Last Updated Penicillin Allergy Unknown Active 07/18/14 Codeine Allergy Unknown Active 07/18/14 Immunizations Name Given Type Hx Influenza Vaccination No Historical Hx Tetanus, Diptheria, Pertussis N/A NO SKIN DISRUPTIONS Historical Hx Influenza Vaccination No Historical Hx Tetanus, Diptheria, Pertussis N/A NO SKIN DISRUPTIONS Historical Vital Signs Acute Vital Signs Vital Response Date/Time Temperature (Fahrenheit) 97.4 deg F (96.8 - 99.1) Temperature (Calculated Celsius) 36.23166 degrees C (36.0 - 37.3) Pulse Rate (adult) 49 bpm (60 - 100) Respiratory Rate 20 breaths/min (10 - 20) O2 Sat by Pulse Oximetry 100 % (90 - 100) Blood Pressure 150/80 mm Hg Height 5 ft 10 in Weight 165 lb Body Mass Index 23.0 kg/m^2 Results Test Source Date Result Interp. Ref. Range Comments Activated Partial Thromboplast Time February 27, 2013 7:55am 37.4 SEC H 24-36 Alanine Aminotransferase (ALT/SGPT) February 27, 2013 7:55am 45 U/L N 9 -52 Albumin February 27, 2013 7:55am 4.0 G/DL N 3.5-5.0 Albumin/Globulin Ratio February 27, 2013 7:55am 1.4 RATIO N 1.1-2.2 Alkaline Phosphatase February 27, 2013 7:55am 95 U/L N 38-126 Amylase Level October 17, 2012 9:50pm 49 U/L N 30-110 Anion Gap February 27, 2013 7:55am 12 MEQ/L N 5-15 Aspartate Amino Transf (AST/SGOT) February 27, 2013 7:55am 30 U/L N 14- 36 B-Type Natriuretic Peptide January 22, 2011 9:32am 77 PG/ML N 15-100 BUN/Creatinine Ratio February 27, 2013 7:55am 11 RATIO N 6-26 Band Neutrophils # September 24, 2012 4:51pm 0.5 T/MM3 - Band Neutrophils % September 24, 2012 4:51pm 3.0 % N 0-6 Basophils # (Auto) February 27, 2013 7:55am 0.1 T/MM3 N 0-0.2 Basophils (%) (Auto) February 27, 2013 7:55am 0.9 % N 0-2 Blood Urea Nitrogen February 27, 2013 7:55am 9.0 MG/DL N 7-17 Calcium Level February 27, 2013 7:55am 9.3 MG/DL N 8.4-10.2 Calculated Osmolality February 27, 2013 7:55am 273 MOSM/KG N 261-280 Carbon Dioxide Level February 27, 2013 7:55am 23 MEQ/L N 22-30 Chloride Level February 27, 2013 7:55am 108 MEQ/L H 98-107 Cholesterol Level April 21, 2012 8:14am 98 MG/DL L 132-199 Cholesterol/HDL Ratio April 21, 2012 8:14am 2.5 RATIO N 0-4.0 Conjugated Bilirubin October 17, 2012 9:50pm 0.00 MG/DL N 0.00-0.30 Creatinine February 27, 2013 7:55am 0.8 MG/DL N 0.7-1.2 Eosinophils # (Auto) February 27, 2013 7:55am 0.2 T/MM3 N 0-0.5 Eosinophils # (Manual) September 24, 2012 4:51pm 0.2 T/MM3 N 0-0.5 Eosinophils % (Manual) September 24, 2012 4:51pm 1.0 % N 0-4 Eosinophils (%) (Auto) February 27, 2013 7:55am 2.7 % N 0-4 Free Thyroxine January 22, 2011 9:32am 0.95 NG/DL N 0.78-2.19 Globulin February 27, 2013 7:55am 2.8 G/DL N 2.4-3.6 Glucose Level February 27, 2013 7:55am 89 MG/DL N 65-110 Hematocrit February 27, 2013 7:55am 43.0 % N 36-46 Hemoglobin February 27, 2013 7:55am 15.5 GM/DL N 12-16 Hemoglobin A1c July 29, 2011 10:36am 4.8 % L 6-7 <6.0 NON-DIABETIC RANGE6.0-7.0 ADA THERAPEUTIC RANGE >7.0 ACTION SUGGESTED LDL Cholesterol, Calculated April 21, 2012 8:14am 58 L 66-159 Lipase October 17, 2012 9:50pm 86 U/L N 23-300 Lymphocytes # (Auto) February 27, 2013 7:55am 2.9 T/MM3 N 1-4.8 Lymphocytes # (Manual) September 24, 2012 4:51pm 3.0 T/MM3 N 1-4.8 Lymphocytes % (Manual) September 24, 2012 4:51pm 19.0 % L 23-45 Lymphocytes (%) (Auto) February 27, 2013 7:55am 42.2 % N 23-45 Mean Corpuscular Hemoglobin February 27, 2013 7:55am 31.4 UUG N 26-34 Mean Corpuscular Hemoglobin Concent February 27, 2013 7:55am 36.0 GM/DL N 31-37 Mean Corpuscular Volume February 27, 2013 7:55am 87.2 UM3 N 80-100 Mean Platelet Volume February 27, 2013 7:55am 10.6 UM3 N 9.4-12.4 Monocytes # (Auto) February 27, 2013 7:55am 0.5 T/MM3 N 0-0.8 Monocytes # (Manual) September 24, 2012 4:51pm 0.8 T/MM3 N 0-0.8 Monocytes % (Manual) September 24, 2012 4:51pm 5.0 % N 0-9.0 Monocytes (%) (Auto) February 27, 2013 7:55am 7.5 % N 0-9.0 Neutrophils # (Auto) February 27, 2013 7:55am 3.2 T/MM3 N 1.8-7.7 Neutrophils # (Manual) September 24, 2012 4:51pm 11.0 T/MM3 H 1.8-7.7 Neutrophils % (Manual) September 24, 2012 4:51pm 69.0 % H 33-66 Neutrophils (%) (Auto) February 27, 2013 7:55am 46.6 % N 33-66 Platelet Count February 27, 2013 7:55am 266 T/MM3 N 130-400 Potassium Level February 27, 2013 7:55am 3.8 MEQ/L N 3.6-5 Prothromb Time International Ratio February 27, 2013 7:55am 0.98 N 0.86 -1.10 THERAPUTIC RANGE=2.00-3.00 FOR ANTI-THROMBOSIS THERAPUTIC RANGE=2.50- 3.50 FOR IMPLANTED VALVE RDW Standard Deviation February 27, 2013 7:55am 41.8 FL N 36.9-50.2 Red Blood Count February 27, 2013 7:55am 4.93 M/MM3 N 4.00-5.20 Sodium Level February 27, 2013 7:55am 143 MEQ/L N 134-144 Thyroid Stimulating Hormone (TSH) January 22, 2011 9:32am 1.08 MIU/L N 0.47 -4.68 Total Bilirubin February 27, 2013 7:55am 0.40 MG/DL N 0.20-1.30 Total Protein February 27, 2013 7:55am 6.8 G/DL N 6.3-8.2 Triglycerides Level April 21, 2012 8:14am 87 MG/DL N 35-135 Troponin I February 27, 2013 7:55am < 0.012 ng/ml 0-0.12 Unconjugated Bilirubin October 17, 2012 9:50pm 0.00 MG/DL N 0.00-1.10 Urine Bilirubin January 22, 2011 11:09am Negative - Has specimen been collected/obtained? Y Urine Blood January 22, 2011 11:09am Negative - Has specimen been collected/obtained? Y Urine Collection Type January 22, 2011 11:09am Voided - Has specimen been collected/obtained? Y Urine Color January 22, 2011 11:09am Yellow - Has specimen been collected/obtained? Y Urine Glucose (UA) January 22, 2011 11:09am Negative - Has specimen been collected/obtained? Y Urine Ketones January 22, 2011 11:09am Negative - Has specimen been collected/obtained? Y Urine Leukocyte Esterase January 22, 2011 11:09am Negative - Has specimen been collected/obtained? Y Urine Nitrite January 22, 2011 11:09am Negative - Has specimen been collected/obtained? Y Urine Protein January 22, 2011 11:09am Negative - Has specimen been collected/obtained? Y Urine Specific [place] January 22, 2011 11:09am 1.010 L - Has specimen been collected/obtained? Y Urine Turbidity January 22, 2011 11:09am Clear - Has specimen been collected/obtained? Y Urine Urobilinogen January 22, 2011 11:09am Normal EU/DL - Has specimen been collected/obtained? Y Urine pH January 22, 2011 11:09am 7.0 - Has specimen been collected/ obtained? Y VLDL Cholesterol April 21, 2012 8:14am 17.4 MG/DL N 0-28 White Blood Count February 27, 2013 7:55am 6.9 T/MM3 N 4.5-11.0 Lab Scanned Report October 08, 2012 9:22pm LAB TEST FORM REQUEST [id number] - HDL Cholesterol Direct April 21, 2012 8:14am 40 MG/DL N 40-60 Reactive Lymphocytes % September 24, 2012 4:51pm 3.0 % H 0-0 Glomerular Filtration Rate Calc February 27, 2013 7:55am 78 - Reactive Lymphocytes # September 24, 2012 4:51pm 0.5 T/MM3 H 0-0 Immature Granulocyte # (Auto) February 27, 2013 7:55am 0.01 T/MM3 N 0.00-0.03 Immature Granulocyte % (Auto) February 27, 2013 7:55am 0.1 % N 0.0-0.5 AR-Lja-Q-Type Natriuretic Peptide February 27, 2013 7:55am 79 PG/ML N 0 -175 Rule in cut points: <50 years old=450; 50-75 years old=900; >75 years old=1800; When utilizing ProBNP rule-in cut points, adjustment for impaired renal function is typically not required. Urine Microscopic Not Indicated January 22, 2011 11:09am Not indicated - Has specimen been collected/obtained? Y Procedures No known history of procedures. Encounters Encounter Location Date/Time Departed Emergency Room [facility] 07/18/14 4:51pm Recent Diagnosis
--- OUTSIDE RECORDS SUMMARY | 2016-10-31 21:25 | XMS REPORT ---
Author Author GENERATED, SYSTEM Organization Unknown Address Unknown Phone Unavailable Care Team Providers Care Patternmaker Wood Name Role Phone PP Unavailable Reason For [...] the responsibility of the patient or patient civil rights representative to confirm the list of medications [...] day for mood stabilization * thyroid (pork) ([place] Thyroid) 60 mg Tablet, Ordered By: MARCI [...]
--- OUTSIDE RECORDS SUMMARY | 2016-10-31 21:25 | XMS REPORT ---
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
--- OUTSIDE RECORDS SUMMARY | 2016-10-31 21:25 | XMS REPORT ---
Author Author Sandra Daniel Organization [employer] Address Unknown Phone Unavailable Care Team Providers Care Ivory Polisher Name Role Phone Sandra Daniel CP Unavailable [...] Start Date End Date Status Dosage Clonazepam [facility] [address]-75 1 MG Orally Twice a day 1 tablet Results No Known Results Summary Purpose eClinicalWorks Submission
--- OUTSIDE RECORDS SUMMARY | 2016-10-31 21:25 | XMS REPORT ---
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 Problem Major depressive disorder, recurrent, moderate F33.1 Active Problem Anxiety disorder, unspecified F41.9 Active Medications Medication Code System Code Instructions Start Date End Date Status Dosage Trazodone HCl [facility] 2[facility] [address]-26 100 MG Orally Once a day 1 tablet at bedtime Paxil [facility] 2] [address]-63 40 MG Orally Once a day at bedtime 1 tablet Topiramate [facility] 2] [address]-27 100 MG Orally as directed for mood stabilization 1 tablet in AM, 1 in afternoon, and 1 tabs at H.S. Results No Known Results Summary Purpose eClinicalWorks Submission
--- OUTSIDE RECORDS SUMMARY | 2016-10-31 21:25 | XMS REPORT ---
Author Sandra Lewis [facility] eClinicalWorks Address Unknown Phone Unavailable Care Team Providers Care Mix Mill Tender Name Role Phone Sandra Daniel CP Unavailable Allergies, Adverse Reactions, Alerts Substance Reaction Event Type Ritalin psychosis Drug Allergy Gluten GI distress Non Drug Allergy Problems Problem Type Condition Code Onset Dates Condition Status Problem Major depressive disorder, recurrent episode, moderate 296.32 Active Problem Anxiety state, unspecified 300.00 Active Problem Disorganized schizophrenia, chronic condition 295.12 Active Assessment Anxiety state, unspecified 300.00 Active Assessment Disorganized schizophrenia, chronic condition 295.12 Active Assessment Major depressive disorder, recurrent episode, moderate 296.32 Active Medications Medication Code System Code Instructions Start Date End Date Status Dosage [place] Thyroid [facility] [address]-09 30 MG Orally as directed 2 tabs in AM and 1 tabs every PM Diclofenac Potassium [facility] [address]-11 50 MG Orally Once a day 2 tablet Liothyronine Sodium [facility] [address]-93 5 MCG Orally twice daily 1 tabs in AM sand 2 in PM Trazodone HCl [facility] [address]-90 100 MG Orally Once a day 1 tablet at bedtime Invega [facility] [address]-74 3 MG Orally twice daily September 19, 2014 1 tablet Topiramate [facility] [address]-62 100 MG Orally as directed for mood stabilization 1 tablet in AM, 1 in afternoon, and 1 tabs at H.S. Paxil [facility] [address]-12 30 MG Orally Once a day at bedtime 1 tablet Fludrocortisone Acetate [facility] [address]-36 0.1 MG Orally once a day as directed by Dr. Chacon 1 tablet Clonazepam [facility] [address]-96 0.5 MG Orally twice daily PRN anxiety; no early refills 1/2 tablet in afternoon and at bedtime Duloxetine HCl [facility] [address]-75 60 MG Orally Once a day in AM for mood 2 capsules Risperidone [facility] [address]-44 1 MG Orally Once a day October 31, 2014 1 tablet Procedures Procedure Coding System Code Date OFFICE VISIT, EST-MOD. COMPLEXITY (25 MIN) CPT-4 60125 October 31, 2014 Vital Signs Date/Time: October 31, 2014 Height 68.5 in Weight 169 lbs Temperature 98.0 F Blood Pressure Diastolic 98 mm Hg Blood Pressure Systolic 130 mm Hg Cardiac Monitoring Heart Rate 58 /min BMI 25.32 Index Respiratory Rate 16 /min Results No Known Results Summary Purpose eClinicalWorks Submission
--- OUTSIDE RECORDS SUMMARY | 2016-10-31 21:25 | XMS REPORT ---
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 Results No Known Results Summary Purpose eClinicalWorks Submission
--- OUTSIDE RECORDS SUMMARY | 2016-10-31 21:25 | XMS REPORT ---
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 Problem Major depressive disorder, recurrent, moderate F33.1 Active Problem Anxiety disorder, unspecified F41.9 Active Assessment Major depressive disorder, recurrent, moderate F33.1 Active 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 Problem Constipation, unspecified K59.00 Active Problem Personal history of other diseases of the digestive system Z87.19 Active Medications Medication Code System Code Instructions Start Date End Date Status Dosage Seroquel [facility] [address]-05 50 MG Orally every AM and LUNCHTIME January 08, 2016 1 tablet Hydrocodone-Acetaminophen [facility] [address]-89 5-500 MG Orally every 6 hrs 1 capsule as needed Fludrocortisone Acetate [facility] [address]-19 0.1 MG Orally once a day 1 tablet Vraylar [facility] [address]-97 3 mg oral daily January 15, 2016 Jul 29, 2016 every am Clonazepam [facility] [address]-38 1 MG Orally Once a day 1 tablet Topiramate [facility] [address]-56 100 MG Orally Twice a day 1 tablet Duloxetine HCl [facility] [address]-86 60 MG Orally Every AM 1 capsule Trazodone HCl [facility] [address]-01 100 MG Orally Once a day 1 tablet at bedtime Paxil [facility] [address]-10 40 MG Orally at bedtime January 08, 2016 1 tablet Seroquel [facility] [address]-77 200 MG Orally At bedtime 1 tablet Procedures Procedure Coding System Code Date OFFICE VISIT, EST-LOW COMPLEXITY (15 MIN.) CPT-4 80261 Jan 29, 2016 Vital Signs Date/Time: Jan 29, 2016 Temperature 97.7 F Height 68.5 in Weight 152.8 lbs Blood Pressure Diastolic 70 mm Hg Blood Pressure Systolic 116 mm Hg Cardiac Monitoring Heart Rate 80 /min BMI 22.89 Index Respiratory Rate 18 /min Results No Known Results Summary Purpose eClinicalWorks Submission
--- OUTSIDE RECORDS SUMMARY | 2016-10-31 21:25 | XMS REPORT | Continuity of Care Document ---
Author Author [facility] Organization [facility] Address Unknown Phone Unavailable Care Team Providers Care Demand Generation Manager Name Role Phone RICKY MCFARLAND MD Primary Care Physician [phone] Insurance Providers Guarantor Thea Bautista Address [address] [place] [address] Email DENIED/NO TO PT [facility] [id number] Subscriber's Name Thea Bautista Relationship 18 Self Effective Date 15 Expiration Date 16 Chief Complaint and Reason for Visit Chief Complaint Headache Reason for Visit Patient left without being seen Problems Active Problems Medical Problem Onset Date Status Autonomic orthostatic hypotension Unknown Acute Bradycardia on ECG Unknown Acute Constipation Unknown Acute Gas Unknown Acute Headache Unknown Acute Headache Unknown Acute Headache Unknown Acute Headache Unknown Acute Intermittent abdominal pain Unknown Acute LLQ abdominal pain Unknown Acute Patient left without being seen Unknown Acute Suicidal ideation Unknown Acute atypical chest pain Unknown Acute Medications Current Home Medications Medication Dose Units Route Directions Days Qty Instructions Start Date Clonazepam 0.5 Mg Tab.rapdis 0.25 Tab Oral Twice A Day 03/12/15 Duloxetine Hcl 60 Mg Capsule.dr 120 Mg Oral Daily 03/12/15 Fludrocortisone Acetate 0.1 Mg Tablet 0.1 Mg Oral Daily 06/25/12 Liothyronine Sodium 5 Mcg Tablet 5 Mg Oral Every Morning 07/18/14 Liothyronine Sodium 5 Mcg Tablet 10 Mg Oral Bedtime 10/04/15 Paroxetine Hcl 40 Mg Tablet 40 Mg Oral Bedtime 10/04/15 Progesterone,Micronized (Progesterone) 100 Mg Capsule 100 Mg Oral Bedtime 08/10/15 Propylene Glycol/Peg 400 (Systane Gel Eye Drops) 10 Ml Drops.gel 1 Drop Both Eyes As Needed 10/04/15 Risperidone (Risperdal) 1 Mg Tablet 1 Mg Oral Every Morning 12/06 Risperidone (Risperdal) 3 Mg Tablet 3 Mg Oral Bedtime 03/12/15 Thyroid,Pork (Katy Thyroid) 60 Mg Tablet 120 Mg Oral Every Morning 08/10/15 Thyroid,Pork (Katy Thyroid) 60 Mg Tablet 60 Mg Oral Bedtime 06/13 Topiramate 100 Mg Tablet 100 Mg Oral Three Times A Day 03/12/15 Trazodone Hcl 100 Mg Tablet 100 Mg Oral Bedtime 07/18/14 Past Home Medications Medication Directions Ordered Status [place]y , Oral Daily 06/23/11 Discontinued Clonazepam 1 Mg Tablet, 1 Mg Oral Bedtime 09/05/11 Discontinued Duloxetine Hcl (Cymbalta) 60 Mg Capsule.dr, 60 Mg Oral Twice A Day 09/15/10 Discontinued Lamotrigine (Lamictal) 100 Mg Tablet, 100 Mg Oral Daily 01/22/11 Discontinued Paliperidone (Invega) 3 Mg Tab.er.24, 1 Tab Oral Three Times A Day 12/06/14 Discontinued Paroxetine Hcl (Paxil) 30 Mg Tablet, Daily 09/15/10 Discontinued Risperdal 10MG 10 Mg Tablet, 10 Mg Oral Daily 09/15/10 Discontinued [id number] Mg 20 Mg Tablet, 20 Mg Oral Bedtime 09/15/10 Discontinued Topiramate (Topamax) 200 Mg Tablet, 200 Mg Oral Bedtime 09/15/10 Discontinued Topiramate (Topamax) 100 Mg Tablet, 100 Mg Oral Daily 09/15/10 Discontinued Vybrin , 20 Mg Oral Daily 06/23/11 Discontinued Social History Social History Problem Response Recorded Date/Time Onset Date Status Hx Substance Use No 10/08/2015 2:00pm Not Applicable Not Applicable Hx Alcohol Use No 10/08/2015 2:00pm Not Applicable Not Applicable Tobacco Usage none 01/21/2014 5:16am Not Applicable Not Applicable Hospital Discharge Instructions No hospital discharge instructions. Plan of Care Discharge Date 01/12/16 7:08pm Disposition 07 LEFT W/O BEING SEEN Condition at Discharge Left Without Being Seen Prescriptions See Medication Section Referrals RICKY MCFARLAND MD Address: [address] [place] [address] [address] [place], [place] [phone] Functional Status No functional status results. Allergies, Adverse Reactions, Alerts Allergen Type Severity Reaction Status Last Updated Methylphenidate Allergy Unknown "I GOT COMPLETELY NUTS" Active 01/12/16 Gluten Allergy Unknown Active 01/12/16 shellfish derived Allergy Unknown Active 01/12/16 Immunizations Query Response on File Recorded Date/Time Hx Influenza Vaccination No 03/12/15 6:02pm Hx Tetanus, Diptheria, Pertussis Y 201203/12/15 6:02pm Hx Influenza Vaccination No 03/12/15 6:02pm Hx Tetanus, Diptheria, Pertussis Y 201203/12/15 6:02pm Influenza Vaccine Hx NONE 10/08/15 2:00pm Vital Signs Acute Vital Signs Vital Response Date/Time Temperature (Fahrenheit) 97.7 deg F (96.8 - 99.1) 01/12/2016 6:20pm Temperature (Calculated Celsius) 36.99129 degrees C (36.0 - 37.3) 01/12/2016 6:20pm Pulse Rate (adult) 58 bpm (60 - 100) 01/12/2016 6:20pm Respiratory Rate 16 breaths/min (10 - 20) 01/12/2016 6:20pm O2 Sat by Pulse Oximetry 99 % (90 - 100) 01/12/2016 6:20pm Blood Pressure 131/57 mm Hg 01/12/2016 6:20pm Height (Feet) 5 feet 01/12/2016 6:20pm Height (Inches) 10.00 inches 01/12/2016 6:20pm Weight (Kilograms) 69.200 kg 01/12/2016 6:20pm Body Mass Index (BMI) 21.0 01/12/2016 6:20pm Results No known relevant diagnostic tests, laboratory data and/or discharge summary. Procedures No known history of procedures. Encounters Encounter Location Arrival/Admit Date Discharge/Depart Date Attending Provider Departed Emergency Room [facility] 01/12/16 6:14pm 01/12/16 7: 08pm BERNARDO BLACKMON DO Recent Diagnosis
--- OUTSIDE RECORDS SUMMARY | 2016-10-31 21:25 | XMS REPORT | Referral Summary ---
Author Author [facility], [facility] Organization [facility] Address Unknown Phone Unavailable Care Team Providers Care Manufacturing Operator Name Role Phone Marisol Peoples Primary Care Physician [phone] Encounter VC Date(s): 01/28/16 - 01/28/16 [facility], [address] [place] [address]- Discharge Disposition: 01-Home or Self Care Attending Physician: Stanley Peoples MD Admitting Physician: Stanley Peoples MD Vital Signs Most recent to 1 oldest [Reference Range]: Blood Pressure 140/76 mmHg [90-140/60-90 mmHg] (01/28/16 3:05 PM) Problem List Condition Effective Dates Status [...] oral tablet 1 mg 1 tabs, Oral, Daily, 0 Refill(s) Start Date: 12/13/13 Status: Ordered Cymbalta 60 mg oral delayed release capsule 60 mg 1 caps, Oral, Daily, 0 Refill(s) Start Date: 12/13/13 Status: Ordered fludrocortisone 0.1 mg oral tablet See Instructions, TAKE 1 TABLET BY MOUTH EVERY DAY, # 90 tabs, 3 Refill(s), eRx : [facility] [id number], TAKE 1 TABLET BY MOUTH EVERY DAY Start Date: 11/22/15 Status: Ordered magnesium oxide 250 mg, Oral, [...] Refill( s) Start Date: 11/06/15 Status: Ordered [place] 5 mg-325 mg oral tablet 1 tabs, Oral, q6hr, as needed for pain, # 60 tabs, 0 Refill(s) Start Date: 01/28/16 Status: Ordered SEROquel 200 mg oral tablet 200 mg 1 tabs, Oral, Daily, 0 Refill(s) Start Date: 01/16/16 Status: Ordered SEROquel 50 mg oral tablet mg tabs, Oral, BID, 0 Refill(s) Start Date: 01/16/16 Status: Ordered Topamax 100 mg oral tablet 100 mg 1 tabs, Oral, BID, 0 Refill(s) Start Date: 12/13/13 Status: Ordered traZODone 100 mg oral tablet 1 tabs, Oral, Bedtime (once a day), 0 Refill(s) Start Date: 11/02/14 Status: Ordered Vitamin C 1 tabs, Oral, Daily, 0 Refill(s) Start Date: 11/06/15 Status: Ordered Vraylar 3 mg oral capsule mg caps, Oral, Daily, 0 Refill(s) Start Date: 01/16/16 Status: Ordered Results Hematology Most recent to 1 oldest [Reference Range]: Sed Rate [0-23] 12 (01/28/16 1:31 PM) Chemistry Most recent to 1 oldest [Reference Range]: Total CK [29-168 34 U/L U/L] (01/28/16 1:31 PM) Immunizations Vaccine Date Refusal Reason tetanus/diphth/pertuss (Tdap) adult/adol 06/07/12 Procedures Procedure Date Related Diagnosis Body Site JULIANA - Total abdominal hysterectomy - 1 ovary 2006 Tonsillectomy Social History Social History Type Response Smoking Status Former smoker Assessment and Plan Extracted from: Title: Ambulatory Patient Education Author: Stanley Peoples MD Date: 01/27 Family Medicine Musculoskeletal Pain Musculoskeletal pain is muscle and latisha aches and pains. These pains can occur in any part of the body. Your caregiver may treat you without knowing the cause of the pain. They may treat you if blood or urine tests, X-rays, and other tests were normal. CAUSES There is often not a definite cause or reason for these pains. These pains may be caused by a type of germ (virus). The discomfort may also come from overuse. Overuse includes working out too hard when your body is not fit. Latisha aches also come from weather changes. Bone is sensitive to atmospheric pressure changes. HOME CARE INSTRUCTIONS Ask when your test results will be ready. Make sure you get your test results. Only take lkvf-aqk-nzxawby or prescription medicines for pain, discomfort , or fever as directed by your caregiver. If you were given medications for your condition, do not drive, operate machinery or power tools, or sign legal documents for 24 hours. Do not drink alcohol. Do not take sleeping pills or other medications that may interfere with treatment. Continue all activities unless the activities cause more pain. When the pain lessens, slowly resume normal activities. Gradually increase the intensity and duration of the activities or exercise. During periods of severe pain, bed rest may be helpful. Lay or sit in any position that is comfortable. Putting ice on the injured area. Put ice in a bag. Place a towel between your skin and the bag. Leave the ice on for 15 to 20 minutes, 3 to 4 times a day. Follow up with your caregiver for continued problems and no reason can be found for the pain. If the pain becomes worse or does not go away, it may be necessary to repeat tests or do additional testing. Your caregiver may need to look further for a possible cause. SEEK IMMEDIATE MEDICAL CARE IF: You have pain that is getting worse and is not relieved by medications. You develop chest pain that is associated with shortness or breath, sweating, feeling sick to your stomach (nauseous), or throw up (vomit). Your pain becomes localized to the abdomen. You develop any new symptoms that seem different or that concern you. MAKE SURE YOU: Understand these instructions. Will watch your condition. Will get help right away if you are not doing well or get worse. This information is not intended to replace advice given to you by your health care provider. Make sure you discuss any questions you have with your health care provider. Document Released: 06/15/2006 Document Revised: 09/06/2012 Document Reviewed: [employer] Patient Information 2016 [employer] No follow up information was provided. Extracted from: Title: Office Visit Note Author: Stanley Peoples MD Date: 01/28/16 Assessment/Plan Fibromyalgia I did give her [place] 5mg and to be used once daily as needed and not every day. Ordered: C-Reactive Protein (CRP) Creatine Kinase Office Visit Level 4 Est 72730 Sedimentation Rate Paranoid schizophrenia Ordered: Office Visit Level 4 Est 89772 Orders: HYDROcodone-acetaminophen, 1 tabs, Oral, q6hr, as needed for pain, # 60 tabs, 0 Refill(s)
--- OUTSIDE RECORDS SUMMARY | 2016-10-31 21:25 | XMS REPORT ---
Author [facility] [employer] Address Unknown Phone Unavailable Care Team Providers Care Lieutenant Fire Fighter Name Role Phone Sandra Daniel CP Unavailable Allergies, Adverse Reactions, Alerts Substance Reaction Event Type Ritalin psychosis Drug Allergy Gluten GI distress Non Drug Allergy Problems Problem Type Condition Code Onset Dates Condition Status Assessment Anxiety disorder, unspecified F41.9 Active Assessment Schizoaffective disorder, depressive type F25.1 Active Assessment Insomnia, unspecified G47.00 Active Assessment Major depressive disorder, recurrent, moderate F33.1 Active Problem 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 Problem Major depressive disorder, recurrent, moderate F33.1 Active Problem Anxiety disorder, unspecified F41.9 Active Problem Constipation, unspecified K59.00 Active Problem Personal history of other diseases of the digestive system Z87.19 Active Problem Schizoaffective disorder, depressive type F25.1 Active Problem Insomnia, unspecified G47.00 Active Medications Medication Code System Code Instructions Start Date End Date Status Dosage Trazodone HCl [facility] [address]-38 100 MG Orally Once a day 1 tablet at bedtime Seroquel [facility] [address]-85 50 MG Orally every AM and LUNCHTIME January 08, 2016 1 tablet Topiramate [facility] [address]-94 100 MG Orally Twice a day 1 tablet Duloxetine HCl [facility] [address]-09 60 MG Orally Every AM 1 capsule Fludrocortisone Acetate [facility] [address]-02 0.1 MG Orally once a day 1 tablet Trazodone HCl [facility] [address]-76 100 MG Orally at bedtime January 08, 2016 1/2- 1 tablet at bedtime Paxil [facility] [address]-25 40 MG Orally at bedtime January 08, 2016 1 tablet Clonazepam [facility] [address]-46 1 MG Orally Once a day 1 tablet Liothyronine Sodium [facility] [address]-01 5 MCG Orally Once a day 1 tablet in the AM Seroquel [facility] [address]-39 200 MG Orally At bedtime 1 tablet Procedures Procedure Coding System Code Date OFFICE VISIT, EST-MOD. COMPLEXITY (25 MIN) CPT-4 21451 January 08, 2016 Vital Signs Date/Time: January 08, 2016 Temperature 98.5 F Height 68.5 in Weight 154.12 lbs Blood Pressure Diastolic 86 mm Hg Blood Pressure Systolic 128 mm Hg Cardiac Monitoring Heart Rate 76 /min BMI 23.09 Index Respiratory Rate 18 /min Results No Known Results Summary Purpose eClinicalWorks Submission
--- OUTSIDE RECORDS SUMMARY | 2016-10-31 21:25 | XMS REPORT ---
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
--- OUTSIDE RECORDS SUMMARY | 2016-10-31 21:25 | XMS REPORT | Continuity of Care Document ---
Author Author Stanley Peoples MD [facility] Address [address] [place] [address] Phone Care Team Providers Care Inspecting Engineer Name Role Phone Stanley Peoples PP Unavailable Payers Payer name Insurance type Covered green party ID Authorization(s) Unknown Problems Condition Effective Dates (start - stop) Clinical Status Otitis externa - *Acute Pharyngitis - *Acute Dressing change/suture removal - *Routine Encounter for change or removal of nonsurgical wou - *Routine Sinusitis acute - *Acute Allergic rhinitis due to allergen - *Chronic Dermatofibroma - *Resolved Fatigue / Malaise - *Poor control Chest pain - *Poor control Orthostasis - *Controlled IBS (irritable bowel syndrome) - *Chronic Eustachian tube dysfunction - *Acute Hypotension, Orthostatic - *Stable Sinusitis, Acute - *Acute Low back pain - *Acute Pain in joint, pelvic region and thigh - *Acute Fatigue / Malaise - *Chronic Myalgia and myositis - *Acute Fatigue - *Chronic Syncope and collapse - *Stable Depression - *Chronic Eustachian tube dysfunction - *Acute Depression - *Fair Control Lumbago - *Chronic Polyuria - *Acute NEED FOR PROPHYLACTIC VACCINATION WITH COMBINED UCOEGSQHGA-ERNHCHA-AAXRYBFIF ( DTP) (DTAP) VACCINE - Incontinence of urine - *Fair Control Other functional disorder of bladder - *Fair Control Insomnia due to drug - *Fair Control Undet pois-med agnt - *Fair Control Axillary tenderness - *Symptomatic Dysfunction of eustachian tube - *Chronic Infective otitis externa, unspecified - *Chronic Pharyngitis, Acute - *Chronic 311 - DEPRESSIVE DISORDER NEC - ESOPHAGEAL REFLUX - OSTEOARTHROS NOS-UNSPEC - ALLERGY, UNSPECIFIED - Family History Family Member Diagnosis Age At Onset Status Unknown Social History Social History Element Description Quantity Unknown Allergies, Adverse Reactions, Alerts Substance Reaction Severity Status CODEINE Nausea Unknown PENICILLINS Nausea/Vomiting Unknown Medications Medication Instructions Dosage Effective Dates (start - stop) Status Ritalin 5 mg tablet take 1 tablet (5MG) by oral route 2 times every day 5 MG - Active Zithromax Z-Laron 250 mg tablet take 2 tablet (500MG) by oral route every day for 1 day then 1 tablet (250 mg) by oral route once daily for 4 days 500 MG - No Longer Active Cortisporin-TC 3.3 mg-3 mg-10 mg-0.5 mg/mL ear drops,suspension instill 6 Drop by Otic route 4 times every day for 7 days 0 - No Longer Active clonazepam 1 mg tablet take 0.5 Tablet (0.5MG) by oral route 2 times every day 0.5 MG - Active Cymbalta 60 mg capsule,delayed release take 2 Capsule (120MG) by oral route every day 120 MG - Active Topamax 100 mg tablet take 1 Tablet (100MG) by oral route 3 times every day 100 MG - Active gelatin 600 mg capsule take 2 Capsule by Oral route every day 0 2012 - Active take by Oral route every day zeaxanithin 0 - Active multivitamin tablet take 1 by Oral route every day 0 - Active Co Q-10 100 mg capsule take by Oral route every day 0 - Active Fish Oil 1,000 mg capsule take 1 Tablet by Oral route every day 0 2012 - Active calcium 500 mg tablet take 1 Tablet by Oral route every day 0 - Active magnesium 200 mg tablet take 2 Tablet by Oral route every day 0 2012 - Active Green Tea capsule take 1 Capsule by Oral route every day 0 - Active naproxen 500 mg tablet take 1 tablet (500MG) by oral route 2 times every day with food 500 MG - Active Flexeril 10 mg tablet take 1 tablet (10MG) by oral route 2 times every day 10 MG - Active Paxil 30 mg tablet one hs - Active garlic capsule 8 daily - Active take two tabs ever am and 1 tab in the pm - Active Risperdal 1 mg tablet take 1 tablet (1MG) by mouth every am and two tab every pm - Active Levaquin 500 mg tablet take 1 tablet (500MG) by oral route every 24 hours 500 MG - Active fludrocortisone 0.1 mg tablet take 1 tablet (0.1MG) by oral route every day 0.1 MG - Active Immunizations Vaccine Date Status Comments Tdap (Boostrix r) completed Results Test Name Date and Time Measure Units Reference Range Abnormal Flag Comments Unknown Vital Signs Date / Time: Height Weight Pulse Rate Blood Pressure Temperature /10:04:00 71.00 in 176.00 lbs 122/70 mm[Hg] 96.8 F Procedures Procedure Date Unknown Encounters Encounter Location Date Patient Visit [facility] Patient Visit [facility] Patient Visit [facility] Patient Visit [facility] Patient [facility] Patient [facility] Patient [facility] Patient [facility] Patient [facility] Patient Visit [facility] Patient [facility] Patient Visit [facility] Patient Visit [facility] Patient Visit [facility] Patient Visit [facility] Patient Visit [facility] Patient Visit [facility] Advance Directives Directive Effective Date Unknown
--- OUTSIDE RECORDS SUMMARY | 2016-10-31 21:25 | XMS REPORT ---
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
--- OUTSIDE RECORDS SUMMARY | 2016-10-31 21:25 | XMS REPORT | Referral Summary ---
Author Author [facility] Organization [facility] Address Unknown Phone Unavailable Care Team Providers Care Board Liner Operator Name Role Phone Marisol Peoples Primary Care Physician [phone] Encounter Date(s): 03/15/15 - 03/15/15 [facility] [address] [place] [id number] Discharge Diagnosis: Postural lightheadedness Discharge Diagnosis: Left shoulder pain Discharge Disposition: 01-Home or Self Care Attending Physician: Tena Parikh APRN Admitting Physician: Tena Parikh APRN Vital Signs Most recent to 1 oldest [Reference Range]: Peripheral Pulse 52 bpm Rate [60-100 bpm] *LOW* (03/15/15 1:03 PM) Blood Pressure 120/84 mmHg [90-140/60-90 mmHg] (03/15/15 1:03 PM) Problem List Condition Effective Dates Status [...] Substance Reaction Severity Status shellfish Active Medications [place] Thyroid 2 gm, Oral, qAM, 1gm qPM, [...] EVERY DAY, # 90 unknown unit, [facility]: [facility], TAKE 1 TABLET (0.1MG) BY ORAL ROUTE [...] 0 Refill(s) Start Date: 12/13/13 Status: Ordered [place] 5 mg-325 mg oral tablet 1 tabs, [...] TID, # 30 g, 0 Refill(s), Pharmacy: [facility] [id number] Start Date: 06/12/15 Status: Ordered RisperDAL 1 [...] Extracted from: Title: Ambulatory Patient Education Author: Tena Parikh MANAGEMENT ASSOCIATE Date: Family Medicine Chest Pain (Nonspecific) It is often hard to give a specific diagnosis for the cause of chest pain. There is always a chance that your pain could be related to something serious, such as a heart attack or a blood clot in the lungs. You need to follow up with your health care provider for further evaluation. CAUSES Heartburn. Pneumonia or bronchitis. Anxiety or stress. Inflammation around your heart (pericarditis) or lung (pleuritis or pleurisy). A blood clot in the lung. A collapsed lung (pneumothorax). It can develop suddenly on its own ( spontaneous pneumothorax) or from trauma to the chest. Shingles infection (herpes zoster virus). The chest wall is composed of bones, muscles, and cartilage. Any of these can be the source of the pain. The bones can be bruised by injury. The muscles or cartilage can be strained by coughing or overwork. The cartilage can be affected by inflammation and become sore ( costochondritis). DIAGNOSIS Lab tests or other studies may be needed to find the cause of your pain. Your health care provider may have you take a test called an ambulatory electrocardiogram (ECG). An ECG records your heartbeat patterns over a 24-hour period. You may also have other tests, such as: Transthoracic echocardiogram (TTE). During echocardiography, sound waves are used to evaluate how blood flows through your heart. Transesophageal echocardiogram (AISSATOU). Cardiac monitoring. This allows your health care provider to monitor your heart rate and rhythm in real time. Holter monitor. This is a portable device that records your heartbeat and can help diagnose heart arrhythmias. It allows your health care provider to track your heart activity for several days, if needed. Stress tests by exercise or by giving medicine that makes the heart beat faster. TREATMENT Treatment depends on what may be causing your chest pain. Treatment may include: Acid blockers for heartburn. Anti-inflammatory medicine. Pain medicine for inflammatory conditions. Antibiotics if an infection is present. You may be advised to change lifestyle habits. This includes stopping smoking and avoiding alcohol, caffeine, and chocolate. You may be advised to keep your head raised (elevated) when sleeping. This reduces the chance of acid going backward from your stomach into your esophagus. Most of the time, nonspecific chest pain will improve within 23 days with rest and mild pain medicine. HOME CARE INSTRUCTIONS If antibiotics were prescribed, take them as directed. Finish them even if you start to feel better. For the next few days, avoid physical activities that bring on chest pain. Continue physical activities as directed. Do not use any tobacco products, including cigarettes, chewing tobacco, or electronic cigarettes. Avoid drinking alcohol. Only take medicine as directed by your health care provider. Follow your health care provider's suggestions for further testing if your chest pain does not go away. Keep any follow-up appointments you made. If you do not go to an appointment, you could develop lasting (chronic) problems with pain. If there is any problem keeping an appointment, call to reschedule. SEEK MEDICAL CARE IF: Your chest pain does not go away, even after treatment. You have a rash with blisters on your chest. You have a fever. SEEK IMMEDIATE MEDICAL CARE IF: You have increased chest pain or pain that spreads to your arm, neck, jaw, back, or abdomen. You have shortness of breath. You have an increasing cough, or you cough up blood. You have severe back or abdominal pain. You feel nauseous or vomit. You have severe weakness. You faint. You have chills. This is an emergency. Do not wait to see if the pain will go away. Get medical help at once. Call your local emergency services (911 in [place] Do not drive yourself to the hospital. MAKE SURE YOU: Understand these instructions. Will watch your condition. Will get help right away if you are not doing well or get worse. Document Released: 03/25/2006 Document Revised: 06/20/2014 Document Reviewed: ExitCare Patient Information 2015 [employer]. This information is not intended to replace advice given to you by your health care provider. Make sure you discuss any questions you have with your health care provider. No follow up information was provided. Extracted from: Title: Office Visit Note Author: Tena Parikh APRN Date: 03/15/15 Assessment/Plan 1.Left shoulder pain Likely musculoskeletal. Discussed NSAIDS, tylenol, rest, stretches/exercises. F/u with PCP also if not improving over the next week or two. 2.Postural lightheadedness
--- OUTSIDE RECORDS SUMMARY | 2016-10-31 21:25 | XMS REPORT ---
Author Author Sandra Daniel Organization [employer] Address Unknown Phone Unavailable Care Team Providers Care Multi Needle Machine Operator Name Role Phone Sandra Daniel [...]
--- OUTSIDE RECORDS SUMMARY | 2016-10-31 21:25 | XMS REPORT ---
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 Medications Medication Code System Code Instructions Start Date End Date Status Dosage Diclofenac Potassium [facility] [address]-29 50 MG Orally Twice a day PRN pain [address] [facility] [address]-51 3 MG Orally twice daily September 19, [address] [facility] [address]-34 0.5 MG Orally twice daily PRN anxiety; no early refills 1/2 tablet in afternoon and at bedtime [place] Thyroid [facility] [address]-98 30 MG Orally as directed 2 tabs in AM and 1 tabs every PM Duloxetine HCl [facility] [address]-11 60 MG Orally Once a day in AM for mood 2 capsules Fludrocortisone Acetate [facility] [address]-30 0.1 MG Orally once a day as directed by Dr. Chacon [address] [facility] [address]-16 30 MG Orally Once a day at bedtime 1 tablet Trazodone HCl [facility] [address]-25 100 MG Orally Once a day 1 tablet at bedtime Topiramate [facility] [address]-26 100 MG Orally as directed for mood stabilization 1 tablet in AM, 1 in afternoon, and 1 tabs at H.S. Liothyronine Sodium [facility] [address]-78 5 MCG Orally twice daily 1 tabs in AM sand 2 in PM Procedures Procedure Coding System Code Date OFFICE VISIT, EST-MOD. COMPLEXITY (25 MIN) CPT-4 07772 November 28, 2014 Vital Signs Date/Time: November 28, 2014 Height 68.5 in Weight 169.12 lbs Temperature 98.6 F Blood Pressure Diastolic 84 mm Hg Blood Pressure Systolic 130 mm Hg Cardiac Monitoring Heart Rate 72 /min BMI 25.34 Index Respiratory Rate 20 /min Results No Known Results Summary Purpose eClinicalWorks Submission
--- OUTSIDE RECORDS SUMMARY | 2016-10-31 21:25 | XMS REPORT ---
Author Author GENERATED, SYSTEM Organization Unknown Address Unknown Phone Unavailable Care Team Providers Care Orthotic Practitioner Name Role Phone PP Unavailable Reason For [...] MG/DL (65-99 MG/DL) *GFR EST NON AFR UGANDAN >90 ML/MIN *GFRA EST AFR AMER >90 [...] 3:00 PM * Address # 1 : [phone] * #2 Office appointment: : Sandra Daniel * #2 Date/Time : 11/13/2015 12:45 PM * Address # 2 : [address] [phone] Procedures No relevant procedures performed. Immunizations No [...] the responsibility of the patient or patient telemarketing sales representative to confirm the list of [...] (Cymbalta) 60 mg capsule,delayed release(/EC), Ordered By: JOVAN RICO, PAC Directions: 2 capsule oral daily [...] risperidone (RisPERDal) 2 mg Tablet, Ordered By: MARCI BARON Directions: 1 tablet oral daily for psychosis [...] bedtime for psychosis Stopped medications* thyroid (pork) ([place] Thyroid) 2 g am every Am and 1 g every PM Tablet Directions: oral * paroxetine HCl (Paxil) 40 mg Tablet Directions: 1 tablet oral PM
--- OUTSIDE RECORDS SUMMARY | 2016-10-31 21:25 | XMS REPORT ---
Author Author Sandra Daniel Organization [employer] Address Unknown Phone Unavailable Care Team Providers Care Academic Success Coordinator Name Role Phone Sandra Daniel Unavailable Allergies No Known Allergies Problems Problem Type Condition Code Onset Dates Condition Status Problem 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 Problem Major depressive disorder, recurrent, moderate F33.1 Active Problem Anxiety disorder, unspecified F41.9 Active Medications Medication Code System Code Instructions Start Date End Date Status Dosage Duloxetine HCl [facility] [address]-76 60 MG Orally Once a day in AM for mood 2 capsules Results No Known Results Summary Purpose eClinicalWorks Submission
--- OUTSIDE RECORDS SUMMARY | 2016-10-31 21:26 | XMS REPORT | Referral Summary ---
Author Author [facility], [facility] Organization [facility] Address Unknown Phone Unavailable Care Team Providers Care Precision Thread Grinder Operator Name Role Phone Marisol Peoples Primary Care Physician [phone] Encounter VC Date(s): 06/26/15 - 06/26/15 [facility], [address] [place] [address]- Discharge Diagnosis: Allergic reaction to shellfish Discharge Disposition: 01-Home or Self Care Attending Physician: Veronica Mullen PA-C Admitting Physician: Veronica Mullen PA-C Vital Signs Most recent to 1 oldest [Reference Range]: Temperature Tympanic 36.5 degC [36.6-38.1 degC] *LOW* (06/26/15 11:25 AM) Peripheral Pulse 60 bpm Rate [60-100 bpm] (06/26/15 11:25 AM) Blood Pressure 136/88 mmHg [90-140/60-90 mmHg] (06/26/15 11:25 AM) SpO2 99 % (06/26/15 11:25 AM) Problem List Condition Effective Dates Status [...] Substance Reaction Severity Status shellfish Active Medications [place] Thyroid 2 gm, Oral, qAM, 1gm qPM, [...] # 90 unknown unit, 3 Refill(s), eRx: [facility] 25687, TAKE 1 TABLET (0.1MG) BY ORAL ROUTE [...] 0 Refill(s) Start Date: 12/13/13 Status: Ordered [place] 5 mg-325 mg oral tablet 1 tabs, [...] Status: Ordered predniSONE 20 mg oral tablet See Instructions, 3 tabs PO x 3 days, 2 tabs PO x 2 days, and 1 tab PO x 2 days , # 15 Each, 0 Refill(s), Pharmacy: [facility] [id number], 3 tabs PO x 3 days, 2 tabs PO x 2 days, and 1 tab PO x 2 days Start Date: 06/26/15 Stop Date: 07/03/15 Status: Ordered Proctozone HC 2.5% topical cream 1 geoff, Topical, TID, # 30 g, 0 Refill(s), Pharmacy: [facility] [address]56 Start Date: 06/12/15 Status: Ordered RisperDAL 1 [...] from: Title: Ambulatory Patient Education Author: Veronica Mlulen PA-C Date : 06/26/15 Allergy Hives Hives are itchy, red, swollen areas of the skin. They can vary in size and location on your body. Hives can come and go for hours or several days (acute hives) or for several weeks (chronic hives). Hives do not spread from person to person (noncontagious). They may get worse with scratching, exercise, and emotional stress. CAUSES Allergic reaction to food, additives, or drugs. Infections, including the common cold. Illness, such as vasculitis, lupus, or thyroid disease. Exposure to sunlight, heat, or cold. Exercise. Stress. Contact with chemicals. SYMPTOMS Red or white swollen patches on the skin. The patches may change size, shape, and location quickly and repeatedly. Itching. Swelling of the hands, feet, and face. This may occur if hives develop deeper in the skin. DIAGNOSIS Your caregiver can usually tell what is wrong by performing a physical exam. Skin or blood tests may also be done to determine the cause of your hives. In some cases, the cause cannot be determined. TREATMENT Mild cases usually get better with medicines such as antihistamines. Severe cases may require an emergency epinephrine injection. If the cause of your hives is known, treatment includes avoiding that trigger. HOME CARE INSTRUCTIONS Avoid causes that trigger your hives. Take antihistamines as directed by your caregiver to reduce the severity of your hives. Non-sedating or low-sedating antihistamines are usually recommended. Do not drive while taking an antihistamine. Take any other medicines prescribed for itching as directed by your caregiver. Wear loose-fitting clothing. Keep all follow-up appointments as directed by your caregiver. SEEK MEDICAL CARE IF: You have persistent or severe itching that is not relieved with medicine. You have painful or swollen joints. SEEK IMMEDIATE MEDICAL CARE IF: You have a fever. Your tongue or lips are swollen. You have trouble breathing or swallowing. You feel tightness in the throat or chest. You have abdominal pain. These problems may be the first sign of a life-threatening allergic reaction. Call your local emergency services (911 in [place] MAKE SURE YOU: Understand these instructions. Will watch your condition. Will get help right away if you are not doing well or get worse. Document Released: 06/15/2006 Document Revised: 06/20/2014 Document Reviewed: [facility] Patient Information 2015 [employer]. This information is not intended to replace advice given to you by your health care provider. Make sure you discuss any questions you have with your health care provider. No follow up information was provided. Extracted from: Title: Office Visit Note- rash f/u Author: Veronica Mullen PA-C Date : 06/26/15 Assessment/Plan Allergic reaction to shellfish Will try extending oral prednisone for another week. I recommended that the pt start taking Benadryl as well. She can use the cortisone cream to the very itchy areas. She is not to take the zinc supplement , or any others with possible shellfish in it. Call if not improving. Ordered: Office Visit Level 3 Est 77502 Orders: predniSONE, See Instructions, 3 tabs PO x 3 days, 2 tabs PO x 2 days, and 1 tab PO x 2 days, # 15 Each, 0 Refill(s), Pharmacy: [facility] [address], 3 tabs PO x 3 days, 2 tabs PO x 2 days, and 1 tab PO x 2 days
--- OUTSIDE RECORDS SUMMARY | 2016-10-31 21:26 | XMS REPORT ---
Author Author Sandra Daniel Organization [employer] Address Unknown Phone Unavailable Care Team Providers Care Videogame Designer Name Role Phone Sandra Daniel CP [...] Start Date End Date Status Dosage Clonazepam [facility] [address]-10 1 MG Orally Once a day 1 tablet Results No Known Results Summary Purpose eClinicalWorks Submission
--- OUTSIDE RECORDS SUMMARY | 2016-10-31 21:26 | XMS REPORT | Referral Summary ---
Author Author [facility], [facility] Organization [facility] Address Unknown Phone Unavailable Care Team Providers Care Book Illustrator Name Role Phone Marisol Peoples Primary Care Physician [phone] Encounter Date(s): 01/16/16 - 01/16/16 [facility] [place] [address]- Discharge Diagnosis: Abdominal pain Discharge Disposition: 01-Home or Self Care Attending Physician: Veronica Mullen PA-C Admitting Physician: Veronica Mullen PA-C Vital Signs Most recent to 1 oldest [Reference Range]: Temperature Tympanic 36.8 degC [36.6-38.1 degC] (01/16/16 3:06 PM) Peripheral Pulse 80 bpm Rate [60-100 bpm] (01/16/16 3:06 PM) Blood Pressure 142/65 mmHg [90-140/60-90 mmHg] *HI* (01/16/16 3:06 PM) Problem List Condition Effective Dates Status [...] # 90 tabs, 3 Refill(s), eRx : [facility] [address], TAKE 1 TABLET BY MOUTH EVERY DAY [...] 8 mg oral tablet, disintegrating See Instructions, DISSOLVE 1 TABLET ON THE TONGUE EVERY 4 TO 6 HOURS NEEDED FOR NAUSEA OR VOMITING, # 15 tabs, eRx: [facility] [address]8941, DISSOLVE 1 TABLET ON THE TONGUE EVERY 4 TO 6 HOURS NEEDED FOR NAUSEA OR VOMITING Start Date: 11/15/15 Status: Ordered RisperDAL 1 mg oral tablet See Instructions, 2 mg AM and 3 mg PM, 0 Refill(s) Start Date: 03/15/15 Status: Ordered SEROquel 200 mg oral tablet [...] Refill(s) Start Date: 01/16/16 Status: Ordered Results No data available for this section Immunizations Vaccine Date Refusal Reason tetanus/diphth/pertuss (Tdap) adult/adol 06/07/12 Procedures Procedure Date Related Diagnosis Body Site JULIANA - Total abdominal hysterectomy - 1 ovary 2006 Tonsillectomy Social History Social History Type Response Smoking Status Former smoker Assessment and Plan Extracted from: Title: Ambulatory Patient Education Author: Veronica Mullen PA-C Date : 01/16/16 Emergency Medicine Abdominal Pain, Adult Many things can cause abdominal pain. Usually, [...] any discomfort you are experiencing: Only take pypm-[id number] or prescription medicines as directed by your [...] care provider. Document Released: 03/25/2006 Document Revised: 07/06/2015 Document Reviewed: [facility] Patient Information 2016 [employer] [facility]. No follow up information was provided. Extracted from: Title: Office Visit Note- Abd pain Author: Veronica Mullen PA-C Date : 01/16/16 Assessment/Plan Abdominal pain She has had multiple x-rays and CT of the abdomen, which showed constipation. I d/w pt that she needs to restart on Miralax, push fluids , and start with some exercises at home. She is to also try to cut back on sweets and try to eat bland foods for a short time to see if this helps. If she continues with the abdominal pain, can refer to GI. Pt is agreeable. Ordered: Office Visit Level 3 Est [id number]
--- OUTSIDE RECORDS SUMMARY | 2016-10-31 21:26 | XMS REPORT | Continuity of Care Document ---
Author Author [facility] Organization [facility] Address Unknown Phone Unavailable Care Team Providers Care Photo Finish Photographer Name Role Phone RIKCY MCFARLAND MD Primary Care Physician [phone] Insurance Providers Payer Name Policy Number Subscriber Name Relationship [facility] [employer] [facility] [id number] Thea Bautista 18 Self Problems Medical Problems Problem Onset Date Status atypical chest pain Unknown Active Headache Unknown Active Medications Medication Dose Route Sig Days/Qty Instructions Order Date Discontinued Date Status Duloxetine Hcl 60 Mg PO TWICE A DAY 09/15/10 Active Paroxetine Hcl DAILY 09/15/10 01/22/11 Discontinued [Risperdal 10MG] 10 Mg PO DAILY 09/15/10 10/17/12 Discontinued Topiramate 100 Mg PO DAILY 09/15/10 06/25/12 Discontinued Topiramate 200 Mg PO BEDTIME 09/15/10 Active [Rbgxbojlv22 Mg] 20 Mg PO BEDTIME 09/15/10 06/25/12 Discontinued Omeprazole 20 Mg PO DAILY 01/22/11 Active Multivitamins 1 Tab PO DAILY 01/22/11 Active Lamotrigine 100 Mg PO DAILY 01/22/11 06/23/11 Discontinued [Vybrin] 20 Mg PO DAILY 06/23/11 09/05/11 Discontinued [[place]] PO DAILY 06/23/11 10/17/12 Discontinued Clonazepam 1 Mg PO BEDTIME 09/05/11 Active Fludrocortisone Acetate 0.1 Mg PO DAILY 06/25/12 Active [Invega] 10/17/12 Active Social History Social History Problem Response Recorded Date/Time Smoking Status Never smoker 01/20/2014 8:42pm Hx Alcohol Use No 01/20/2014 8:42pm Query Response Start Date Stop Date Smoking Status Never smoker Hospital Discharge Instructions No hospital discharge instructions. Plan of Care No plan of care. Functional Status Query Response Date Recorded Physical Hygiene Self January 20, 2014 8:42pm Disabilities None January 20, 2014 8:42pm Devices Used None January 20, 2014 8:42pm Dressing Self January 20, 2014 8:42pm Ambulation Self January 20, 2014 8:42pm Diet Self January 20, 2014 8:42pm Mental Status Alert January 20, 2014 8:42pm Disabilities None January 20, 2014 8:42pm Devices Used None January 20, 2014 8:42pm Physical Hygiene Self January 20, 2014 8:42pm Dressing Self January 20, 2014 8:42pm Ambulation Self January 20, 2014 8:42pm Diet Self January 20, 2014 8:42pm Allergies, Adverse Reactions, Alerts Allergen Type Severity Reaction Status Last Updated Penicillin Allergy Unknown Active 02/27/13 Codeine Allergy Active 02/27/13 Immunizations Name Given Type Hx Influenza Vaccination No Historical Hx Tetanus, Diptheria, Pertussis N/A NO SKIN DISRUPTIONS Historical Hx Influenza Vaccination No Historical Hx Tetanus, Diptheria, Pertussis N/A NO SKIN DISRUPTIONS Historical Vital Signs Acute Vital Signs Vital Response Date/Time Temperature (Fahrenheit) 98.2 deg F (96.8 - 99.1) Temperature (Calculated Celsius) 36.52383 degrees C (36.0 - 37.3) Pulse Rate (adult) 45 bpm (60 - 100) Respiratory Rate 16 breaths/min (10 - 20) O2 Sat by Pulse Oximetry 98 % (90 - 100) Blood Pressure 134/70 mm Hg Height 5 ft 10 in Weight 172 lb Body Mass Index 24.0 kg/m^2 Results Test Source Date Result Interp. [...] Has specimen been collected/obtained? Y Urine Specific [place] January 22, 2011 11:09am 1.010 L - [...] 08, 2012 9:22pm LAB TEST FORM REQUEST [id number] - HDL Cholesterol Direct April 21, 2012 [...] 27, 2013 7:55am 0.1 % N 0.0-0.5 ON-Xsx-G-Type Natriuretic Peptide February 27, 2013 7:55am 79 [...] Encounters Encounter Location Date/Time Departed Emergency Room [facility] 01/20/14 7:56pm Recent Diagnosis
--- OUTSIDE RECORDS SUMMARY | 2016-10-31 21:26 | XMS REPORT | Referral Summary ---
Author Author [facility] [place], [facility] Organization [facility] Address Unknown Phone Unavailable Care Team Providers Care Grain Shipper Name Role Phone Marisol Peoples Primary Care Physician [phone] Encounter Date(s): 10/04/15 - 10/04/15 [facility] [place], [address] [place] [address]- Discharge Diagnosis: Ileus Discharge Disposition: 01-Home or Self Care Attending Physician: Veronica Mullen PA-C Admitting Physician: Veronica Mullen PA-C Vital Signs Most recent to 1 oldest [Reference Range]: Temperature Tympanic 36.3 degC [36.6-38.1 degC] *LOW* (10/04/15 1:23 PM) Peripheral Pulse 65 bpm Rate [60-100 bpm] (10/04/15 1:23 PM) Respiratory Rate 18 br/min [14-20 br/min] (10/04/15 1:23 PM) Blood Pressure 118/64 mmHg [90-140/60-90 mmHg] (10/04/15 1:23 PM) Problem List Condition Effective Dates Status [...] Substance Reaction Severity Status shellfish Active Medications [place] Thyroid 2 gm, Oral, qAM, 1gm qPM, [...] EVERY DAY, # 90 unknown unit, eRx: [facility] [id number], TAKE 1 TABLET (0.1MG) BY ORAL ROUTE [...] 0 Refill(s) Start Date: 12/13/13 Status: Ordered [place] 5 mg-325 mg oral tablet 1 tabs, [...] TID, # 30 g, 0 Refill(s), Pharmacy: [facility] [id number] Start Date: 06/12/15 Status: Ordered RisperDAL 1 [...] Education Author: Veronica Mullen PA-C Date : 10/04/15 Family Medicine Ileus The intestine (bowel, or [...] Released: 06/17/2004 Document Revised: 10/30/2014 Document Reviewed: [facility] Patient Information 2015 [employer] [facility]. Clear Liquid Diet A clear liquid diet is a short-term diet. It is made up of liquids or solids that become liquids at room temperature. You should be able to see through the liquid. WHAT CAN I HAVE? You may have any of the following if your doctor says they are okay: Vegetable juices or fruit juices that do not have pulp. Coffee. Tea. Soda. Clear broth or strained broth-based soups. High-protein gelatins and flavored gelatins. Sugar and honey. Ices or frozen ice pops that do not have milk. If you are not sure whether you can have a certain liquid, ask your doctor. You may also ask your doctor about other clear liquid options. This information is not intended to replace advice given to you by your health care provider. Make sure you discuss any questions you have with your health care provider. Document Released: 05/28/2009 Document Revised: 06/20/2014 Document Reviewed: [employer] Patient Information 2015 [employer]IS. No follow up information was provided. Extracted from: Title: Office Visit Note- F/u Author: Veronica Mullen PA-C Date: Assessment/Plan Ileus She has been feeling better. The abdominal pain today is most likely from the energy drink. I talked with her about getting another x-ray or a CT scan, and she would like to defer. States that she will stop drinking the energy drinks and will try to continue to do the clear liquid diet. I also advised for her to try and get some exercise, such as walking. Also try chewing gum to see if this helps. Continue to hold narcotics if possible. She is to f/u in clinic if her pain is continuing or any new sx develop. Ordered: Office Visit Level 3 Est 66834
--- OUTSIDE RECORDS SUMMARY | 2016-10-31 21:26 | XMS REPORT ---
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 Results No Known Results Summary Purpose [employer] Submission
--- OUTSIDE RECORDS SUMMARY | 2016-10-31 21:26 | XMS REPORT | Referral Summary ---
Author Organization Unknown Address Unknown Phone Unavailable Care Team Providers Care Steel Rigger Name Role Phone Marisol Peoples Primary Care Physician [phone] Encounter VC Date(s): 08/14/14 - 08/14/14 [facility], [address] [place] [address] Discharge Diagnosis: Headache Discharge Diagnosis: Mild concussion Discharge Disposition: Home or Self Care Attending Physician: Stanley Peoples MD Admitting Physician: Stanley Peoples MD Vital Signs Most recent to 1 oldest [Reference Range]: Peripheral Pulse 52 bpm Rate [60-100 bpm] *LOW* (08/14/14 10:23 AM) Respiratory Rate 14 br/min [14-20 br/min] (08/14/14 10:23 AM) Blood Pressure 108/70 mmHg [90-140/60-90 mmHg] (08/14/14 10:23 AM) Problem List Condition Effective Dates Status Health Status Informant Allergies(Confirmed) Active Bronchitis(Confirmed Active ) Chronic otitis Active media(Confirmed) Chronic sinus Active infection(Confirmed) Depression(Confirmed Active ) Fibromyalgia(Confirm Active ed) GERD Active (gastroesophageal reflux disease)(Confirmed) Joint Active pain(Confirmed) OA Active (osteoarthritis)(Con firmed) Tobacco Active patient user(Confirmed) Fibroid 2006 Active tumor(Confirmed) Allergies, Adverse Reactions, Alerts No data available for this section Medications [place] Thyroid 15 mg, Oral, Daily, 0 Refill(s) Start Date: 12/13/13 Status: Ordered calcium citrate 500 mg, Oral, Daily, 0 Refill(s) Start Date: 12/13/13 Status: Ordered Cataflam 50 mg oral tablet tabs, Oral, BID, 0 Refill(s) Start Date: 12/13/13 Status: Ordered clonazePAM 1 mg oral tablet 1 tabs, Oral, BID, 0 Refill(s) Start Date: 12/13/13 Status: Ordered Co-Q10 100 mg, Oral, Daily, 0 Refill(s) Start Date: 12/13/13 Status: Ordered Cymbalta 60 mg oral delayed release capsule 2 caps, Oral, Daily, 0 Refill(s) Start Date: 12/13/13 Status: Ordered Fish Oil 1000 mg oral capsule 1 caps, Oral, Daily, 0 Refill(s) Start Date: 12/13/13 Status: Ordered Flexeril 10 mg tablet See Instructions, TAKE 1 TABLET (10MG) BY ORAL ROUTE 2 TIMES EVERY DAY, # 60 unknown unit, eRx: [facility] [id number], TAKE 1 TABLET (10MG) BY ORAL ROUTE 2 TIMES EVERY DAY Special Instructions: TAKE 1 TABLET (10MG) BY ORAL ROUTE 2 TIMES EVERY DAY Start Date: 05/29/14 Status: Ordered fludrocortisone 0.1 mg oral tablet See Instructions, TAKE 1 TABLET BY MOUTH EVERY DAY, # 90 tabs, 1 Refill(s), Pharmacy: [facility] [id number], TAKE 1 TABLET BY MOUTH EVERY DAY Special Instructions: TAKE 1 TABLET BY MOUTH EVERY DAY Start Date: 06/27/14 Status: Ordered garlic 1 tabs, Oral, Daily, 0 Refill(s) Start Date: 12/13/13 Status: Ordered GELATIN 1,200 mg, Oral, Daily, 0 Refill(s) Start Date: 12/13/13 Status: Ordered Invega 6 mg oral tablet, extended release 1 tabs, Oral, qAM, # 30 tabs, 0 Refill(s) Start Date: 12/14/13 Status: Ordered magnesium oxide 250 mg, Oral, Daily, 0 Refill(s) Start Date: 12/13/13 Status: Ordered multivitamin 1 tabs, Daily, 0 Refill(s) Start Date: 12/13/13 Status: Ordered naproxen 500 mg, Oral, BID, 0 Refill(s) Start Date: 12/13/13 Status: Ordered [place] 5 mg-325 mg oral tablet 1 tabs, Oral, q6hr, as needed for pain, # 30 tabs, 0 Refill(s) Start Date: 07/18/14 Status: Ordered Paxil 30 mg oral tablet 1 tabs, Oral, Daily, # 30 tabs, 0 Refill(s) Start Date: 12/13/13 Status: Ordered Proctocream-HC 2.5% rectal cream with applicator apply, Topical, BID, # 30 g, 0 Refill(s), Pharmacy: [facility] [id number] Start Date: 01/26/14 Stop Date: 02/25/14 Status: Ordered RisperDAL 1 mg oral tablet 1 tabs, Oral, BID, # 60 tabs, 0 Refill(s) Start Date: 12/13/13 Status: Ordered Ritalin 5 mg oral tablet 1 tabs, Oral, BID, 0 Refill(s) Start Date: 12/13/13 Status: Ordered Topamax 100 mg oral tablet 1 tabs, Oral, TID, 0 Refill(s) Start Date: 12/13/13 Status: Ordered Results No data available for this section Immunizations Vaccine Date Refusal Reason tetanus/diphth/pertuss (Tdap) adult/adol 06/07/12 Procedures Procedure Date Related Diagnosis Body Site JULIANA - Total abdominal hysterectomy - 1 ovary 2006 Tonsillectomy Social History Social History Type Response Smoking Status Former smoker Assessment and Plan Extracted from: Title: Ambulatory Patient Education Author: Stanley Peoples MD Date: Family Medicine Concussion and Brain Injury A blow to the head can stop the brain from working normally (concussion ). It is usually not life-threatening. However, the results of the injury can be serious. Problems caused by the injury might show up right away or days or weeks later. Getting better might take some time. HOME CARE Rest your body. Ways to rest your body include: Getting plenty of sleep at night. Going to sleep early. Taking naps during the day when you feel tired. Limit activities that require a lot of thought. This includes: Time spent with homework. Time spent with work related to a job. TV watching. Computer use. Return to normal activities (driving, work, school) only when your doctor says it is okay. Avoid high impact activity and sports until your doctor says it is okay. Take medicines only as told by your doctor. Do not drink alcohol until your doctor says it is okay. Do not make important decisions without help until you feel better. Follow up with your doctor as told. GET HELP RIGHT AWAY IF: You, your family, or your friends notice that: You have bad headaches, or they get worse. You have weakness, loss of feeling (numbness ), or you feel off balance. You keep throwing up (vomiting ). You feel tired or pass out (faint ). One black center of your eye (pupil ) is larger than the other. You twitch or shake (seize ). Your speech is not clear (slurred ). You are confused, restless, easily angered (agitated ), or annoyed ( irritable ). You cannot recognize or respond to people or activities. You have neck pain. You have trouble being woken up. Your behavior changes. MAKE SURE YOU: Understand these instructions. Will watch your condition. Will get help right away if you are not doing well or get worse. Document Released: 06/03/2010 Document Revised: 09/06/2012 Document Reviewed: [facility] Patient Information 2014 [employer]. Head Injury, Adult You have had a head injury that does not appear serious at this time. A concussion is a state of changed mental ability, usually from a blow to the head. You should take clear liquids for the rest of the day and then resume your regular diet. You should not take sedatives or alcoholic beverages for as long as directed by your caregiver after discharge. After injuries such as yours , most problems occur within the first 24 hours. SYMPTOMS These minor symptoms may be experienced after discharge: Memory difficulties. Dizziness. Headaches. Double vision. Hearing difficulties. Depression. Tiredness. Weakness. Difficulty with concentration. If you experience any of these problems, you should not be alarmed. A concussion requires a few days for recovery. Many patients with head injuries frequently experience such symptoms. Usually, these problems disappear without medical care. If symptoms last for more than one day, notify your caregiver. See your caregiver sooner if symptoms are becoming worse rather than better. HOME CARE INSTRUCTIONS During the next 24 hours you must stay with someone who can watch you for the warning signs listed below. Although it is unlikely that serious side effects will occur, you should be aware of signs and symptoms which may necessitate your return to this location. Side effects may occur up to 7 10 days following the injury. It is important for you to carefully monitor your condition and contact your caregiver or seek immediate medical attention if there is a change in your condition. SEEK IMMEDIATE MEDICAL CARE IF: There is confusion or drowsiness. You can not awaken the injured person. There is nausea (feeling sick to your stomach) or continued, forceful vomiting. You notice dizziness or unsteadiness which is getting worse, or inability to walk. You have convulsions or unconsciousness. You experience severe, persistent headaches not relieved by over-the- counter or prescription medicines for pain. (Do not take aspirin as this impairs clotting abilities). Take other pain medications only as directed. You can not use arms or legs normally. There is clear or bloody discharge from the nose or ears. MAKE SURE YOU: Understand these instructions. Will watch your condition. Will get help right away if you are not doing well or get worse. Document Released: 06/15/2006 Document Revised: 09/06/2012 Document Reviewed: [facility] Patient Information 2014 [employer]. No follow up information was provided. Extracted from: Title: Office Visit Note Author: Stanley Peoples MD Date: 08/14/14 Assessment/Plan Headache Injection of Toradol 60mg IM. If symptoms persist I would suggest a CT of the brain. Ordered: Office Visit Level 4 Est 51643 Mild concussion Ordered: Office Visit Level 4 Est 08184
--- OUTSIDE RECORDS SUMMARY | 2016-10-31 21:26 | XMS REPORT | Referral Summary ---
Author Author [facility] [place] Organization [facility] Address Unknown Phone Unavailable Care Team Providers Care Senior Hardware Design Engineer Name Role Phone Marisol Peoples Primary Care Physician [phone] Encounter VC Date(s): 11/02/14 - 11/02/14 [facility] [place] [address] [place] [address] Discharge Diagnosis: Orthostasis Discharge Disposition: 01-Home [...] Reactions, Alerts No Known Medication Allergies Medications [place] Thyroid 2 gm, Oral, qAM, 1gm qPM, [...] # 90 unknown unit, 3 Refill(s), eRx: [facility] [id number], TAKE 1 TABLET (0.1MG) BY ORAL ROUTE [...] 0 Refill(s) Start Date: 12/13/13 Status: Ordered [place] 5 mg-325 mg oral tablet 1 tabs, [...] 2.69 10*3 [0.80-3.30 10*3] (11/02/14 3:56 PM) [place] Absolute 0.47 10*3 [0.30-1.00 10*3] (11/02/14 3:56 [...] Metabolic Panel Office Visit Level 3 Est 96023 Return to Clinic Referrals to Other Providers Referred by: Danielle Chacon MD
--- OUTSIDE RECORDS SUMMARY | 2016-10-31 21:26 | XMS REPORT ---
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
--- OUTSIDE RECORDS SUMMARY | 2016-10-31 21:26 | XMS REPORT | Referral Summary ---
Author Author [facility] [place] Organization [facility] Address Unknown Phone Unavailable Care Team Providers Care Clinical Support Tech Name Role Phone Marisol Peoples Primary Care Physician [phone] Encounter VC Date(s): 11/02/14 - 11/02/14 [facility] [place] [address] [place], [place] [address] Discharge Diagnosis: Orthostasis Discharge Disposition: 01-Home [...] Reactions, Alerts No Known Medication Allergies Medications [place] Thyroid 2 gm, Oral, qAM, 1gm qPM, [...] # 90 unknown unit, 3 Refill(s), eRx: [facility] [id number], TAKE 1 TABLET (0.1MG) BY ORAL ROUTE [...] 0 Refill(s) Start Date: 12/13/13 Status: Ordered [place] 5 mg-325 mg oral tablet 1 tabs, [...] 2.69 10*3 [0.80-3.30 10*3] (11/02/14 3:56 PM) [place] Absolute 0.47 10*3 [0.30-1.00 10*3] (11/02/14 3:56 [...] Metabolic Panel Office Visit Level 3 Est 37911 Return to Clinic Referrals to Other Providers Referred by: Danielle Chacon MD
--- OUTSIDE RECORDS SUMMARY | 2016-10-31 21:26 | XMS REPORT ---
Author Author Sandra Daniel Organization [employer] Address Unknown Phone Unavailable Care Team Providers Care Project Management Professor Name Role Phone Sandra Daniel Unavailable Allergies No Known Allergies Problems Problem Type Condition Code Onset Dates Condition Status Problem Anxiety state, unspecified 300.00 Active Problem Unspecified schizophrenia, unspecified condition 295.90 Active Medications Medication Code System Code Instructions Start Date End Date Status Dosage Clonazepam [facility] [address]-98 0.5 MG Orally twice daily PRN anxiety; no early refills 1/2 tablet in afternoon and at bedtime Results No Known Results Summary Purpose [employer] Submission
--- OUTSIDE RECORDS SUMMARY | 2016-10-31 21:26 | XMS REPORT ---
Author Author Sandra Daniel Organization [employer] Address Unknown Phone Unavailable Care Team Providers Care Arson Investigator Name Role Phone Sandra Daniel Unavailable Allergies No Known Allergies Problems Problem Type Condition Code Onset Dates Condition Status Problem Anxiety state, unspecified 300.00 Active Problem Unspecified schizophrenia, unspecified condition 295.90 Active Medications Medication Code System Code Instructions Start Date End Date Status Dosage [facility] [address]-35 3 MG Orally as directed October 18, 2014 2 tabs in the AM and one tab in the evening Results No Known Results Summary Purpose [employer] Submission
--- OUTSIDE RECORDS SUMMARY | 2016-10-31 21:26 | XMS REPORT ---
Author Sandra Lewis [facility] [employer] Address Unknown Phone Unavailable Care Team Providers Care Bank Manager Name Role Phone Sandra Daniel CP [...] Instructions Start Date End Date Status Dosage Liothyronine Sodium [facility] [address]-76 5 MCG Orally twice daily 1 tabs in AM sand 2 in PM Fludrocortisone Acetate [facility] [address]-53 0.1 MG Orally once a day as directed by Dr. Chacon 1 tablet Risperdal [facility] [address]-90 3 MG Orally Once a day in the evening December 08, 2014 1 tablet Diclofenac Potassium [facility] [address]-77 50 MG Orally Twice a day PRN pain 1 tablet Trazodone HCl [facility] [address]-14 100 MG Orally Once a day 1 tablet at bedtime Paxil [facility] [address]-74 30 MG Orally Once a day at bedtime 1 tablet Risperdal [facility] [address]-30 1 MG Orally 1 tab every AM December 02, 2014 1 tablet Clonazepam [facility] [address]-73 0.5 MG Orally twice daily anxiety; no early refills 1/2 tablet in afternoon and at bedtime Topiramate [facility] [address]-85 100 MG Orally as directed for mood stabilization 1 tablet in AM, 1 in afternoon, and 1 tabs at [facility] [place] Thyroid [facility] [address]-46 30 MG Orally as directed 2 tabs in AM and 1 tabs every PM Duloxetine HCl [facility] [address]-36 60 MG Orally Once a day in AM for mood 2 capsules Procedures Procedure Coding System Code Date OFFICE VISIT, EST-MOD. COMPLEXITY (25 MIN) CPT-4 24380 December 26, 2014 Vital Signs Date/Time: December 26, 2014 Height 68.5 in Weight 167.12 lbs Temperature 98.0 F Blood Pressure Diastolic 70 mm Hg Blood Pressure Systolic 120 mm Hg Cardiac Monitoring Heart Rate 72 /min BMI 25.04 Index Respiratory Rate 16 /min Results No Known Results Summary Purpose [employer]ClinicalWorks Submission
--- OUTSIDE RECORDS SUMMARY | 2016-10-31 21:26 | XMS REPORT | Referral Summary ---
Author Author [facility], [facility] Organization [facility] Address Unknown Phone Unavailable Care Team Providers Care Cell Tender Helper Name Role Phone Marisol Peoples Primary Care Physician [phone] Encounter [facility] [id number] Date(s): 05/31/15 - 05/31/15 [facility] [place] [id number]- Discharge Diagnosis: Dermatitis herpetiformis Discharge Diagnosis: Toenail deformity Discharge Diagnosis: Irregular bowel habits Discharge Disposition: 01-Home or Self Care Attending Physician: Veronica Mullen PA-C Admitting Physician: Veronica Mullen PA-C Vital Signs Most recent to 1 oldest [Reference Range]: Peripheral Pulse 64 bpm Rate [60-100 bpm] (05/31/15 1:04 PM) Blood Pressure 122/70 mmHg [90-140/60-90 mmHg] (05/31/15 1:04 PM) Problem List Condition Effective Dates Status Health Status Informant Allergies(Confirmed) Active Bronchitis(Confirmed Active ) Chronic otitis Active media(Confirmed) Chronic sinus Active infection(Confirmed) Depression(Confirmed Active ) Fibromyalgia(Confirm Active ed) GERD Active (gastroesophageal reflux disease)(Confirmed) Joint Active pain(Confirmed) OA Active (osteoarthritis)(Con firmed) Tobacco Active patient user(Confirmed) Fibroid 2006 Active tumor(Confirmed) Allergies, Adverse Reactions, Alerts No Known Medication Allergies Medications [place] Thyroid 2 gm, Oral, qAM, 1gm qPM, [...] 0 Refill(s) Start Date: 12/13/13 Status: Ordered dapsone 25 mg oral tablet 50 mg 2 tabs, Oral, Daily, # 60 tabs, 0 Refill(s), Pharmacy: [facility] [employer] [id number], 2 tabs Oral Daily Start Date: 05/31/15 Status: Ordered Fish Oil 1000 mg oral capsule 1 caps, Oral, Daily, 0 Refill(s) Start Date: 12/13/13 Status: Ordered fludrocortisone 0.1 mg oral tablet See Instructions, TAKE 1 TABLET (0.1MG) BY ORAL ROUTE EVERY DAY, # 90 unknown unit, 3 Refill(s), eRx: [facility] [employer] [id number], TAKE 1 TABLET (0.1MG) BY ORAL ROUTE [...] 0 Refill(s) Start Date: 12/13/13 Status: Ordered [place] 5 mg-325 mg oral tablet 1 tabs, [...] Education Author: Veronica Mullen PA-C Date : 05/31/15 Family Medicine Toenail Removal Toenails may need to be removed because of injury, infections, or to correct abnormal growth. A special non-stick bandage will likely be put tightly on your toe to prevent bleeding. Often times a new nail will grow back. Sometimes the new nail may be deformed. Most of the time when a nail is lost, it will gradually heal, but may be sensitive for a long time. HOME CARE INSTRUCTIONS Keep your foot elevated to relieve pain and swelling. This will require lying in bed or on a couch with the leg on pillows or sitting in a recliner with the leg up. Walking or letting your leg dangle may increase swelling, slow healing, and cause throbbing pain. Keep your bandage dry and clean. Change your bandage in 24 hours. After your bandage is changed, soak your foot in warm, soapy water for 10 to 20 minutes. Do this 3 times per day. This helps reduce pain and swelling. After soaking your foot apply a clean, dry bandage. Change your bandage if it is wet or dirty. Only take fkzm-diq-pcwnoxu or prescription medicines for pain, discomfort, or fever as directed by your caregiver. See your caregiver as needed for problems. You might need a tetanus shot now if: You have no idea when you had the last one. You have never had a tetanus shot before. The injured area had dirt in it. If you need a tetanus shot, and you decide not to get one, there is a rare chance of getting tetanus. Sickness from tetanus can be serious. If you did get a tetanus shot, your arm may swell, get red and warm to the touch at the shot site. This is common and not a problem. SEEK IMMEDIATE MEDICAL CARE IF: You have increased pain, swelling, redness, warmth, drainage, or bleeding. You have a fever. You have swelling that spreads from your toe into your foot. Document Released: 03/13/2004 Document Revised: 09/06/2012 Document Reviewed: [facility] Patient Information 2015 [employer]. This information is not intended to replace advice given to you by your health care provider. Make sure you discuss any questions you have with your health care provider. Constipation Constipation is when a person has fewer than three bowel movements a week, has difficulty having a bowel movement, or has stools that are dry, hard, or larger than normal. As people grow older, constipation is more common. If you try to fix constipation with medicines that make you have a bowel movement (laxatives) , the problem may get worse. Long-term laxative use may cause the muscles of the colon to become weak. A low-fiber diet, not taking in enough fluids, and taking certain medicines may make constipation worse. CAUSES Certain medicines, such as antidepressants, pain medicine, iron supplements , antacids, and water pills. Certain diseases, such as diabetes, irritable bowel syndrome (IBS), thyroid disease, or depression. Not drinking enough water. Not eating enough fiber-rich foods. Stress or travel. Lack of physical activity or exercise. Ignoring the urge to have a bowel movement. Using laxatives too much. SIGNS AND SYMPTOMS Having fewer than three bowel movements a week. Straining to have a bowel movement. Having stools that are hard, dry, or larger than normal. Feeling full or bloated. Pain in the lower abdomen. Not feeling relief after having a bowel movement. DIAGNOSIS Your health care provider will take a medical history and perform a physical exam. Further testing may be done for severe constipation. Some tests may include: A barium enema X-ray to examine your rectum, colon, and, sometimes, your small intestine. A sigmoidoscopy to examine your lower colon. A colonoscopy to examine your entire colon. TREATMENT Treatment will depend on the severity of your constipation and what is causing it. Some dietary treatments include drinking more fluids and eating more fiber- rich foods. Lifestyle treatments may include regular exercise. If these diet and lifestyle recommendations do not help, your health care provider may recommend taking uhnh-xsd-baccvli laxative medicines to help you have bowel movements. Prescription medicines may be prescribed if jlwe-kil-urarefl medicines do not work. HOME CARE INSTRUCTIONS Eat foods that have a lot of fiber, such as fruits, vegetables, whole grains, and beans. Limit foods high in fat and processed sugars, such as italian fries, hamburgers, cookies, candies, and soda. A fiber supplement may be added to your diet if you cannot get enough fiber from foods. Drink enough fluids to keep your urine clear or pale yellow. Exercise regularly or as directed by your health care provider. Go to the restroom when you have the urge to go. Do not hold it. Only take giaw-hdg-zimevee or prescription medicines as directed by your health care provider. Do not take other medicines for constipation without talking to your health care provider first. SEEK IMMEDIATE MEDICAL CARE IF: You have bright red blood in your stool. Your constipation lasts for more than 4 days or gets worse. You have abdominal or rectal pain. You have thin, pencil-like stools. You have unexplained weight loss. MAKE SURE YOU: Understand these instructions. Will watch your condition. Will get help right away if you are not doing well or get worse. Document Released: 03/13/2005 Document Revised: 06/20/2014 Document Reviewed: [facility] Patient Information 2015 [employer]. This information is not intended to replace advice given to you by your health care provider. Make sure you discuss any questions you have with your health care provider. No follow up information was provided. Extracted from: Title: Office Visit Note Author: Veronica Mullen PA-C Date: 05/31/15 Assessment/Plan Dermatitis herpetiformis This does not seem like a typical distribution of DH , but given the history, could try some Dapsone to see if it clears up. There is some acne around the jaw as well. Recommended benzoyl peroxide wash and moisturizer. Follow up in 1 month to see if it has cleared. Ordered: Office Visit Level 4 Est 17676 Irregular bowel habits This does not sound like IBS to me. It sounds like she is getting constipated due to her [place] and numerous fibers that she is taking. I d/w pt that I would like her to only take one of the fibers, and make sure she is drinking plenty of water. I also want her to take Miralax daily to help with the constipation. If starting to get loose stools, hold Miralax. She may RTC in 1 month if she is still having issues. Ordered: Office Visit Level 4 Est 80474 Toenail deformity I d/w pt that I don't feel comfortable taking the nail off, but we can see if Dr. Peoples would like to, or we can set up with Dr. Escobedo for possible removal. Pt was agreeable with this. Will let her know when appt set up. Ordered: Office Visit Level 4 Est 61673 Orders: dapsone, 50 mg 2 tabs, Oral, Daily, # 60 tabs, 0 Refill(s), Pharmacy: [facility] [id number], 2 tabs Oral Daily
--- OUTSIDE RECORDS SUMMARY | 2016-10-31 21:34 | XMS REPORT ---
Author Author GENERATED, SYSTEM Organization Unknown Address Unknown Phone Unavailable Care Team Providers Care Landfill Gas Plant Field Technician Name Role Phone PP Unavailable Reason For [...] MG/DL (65-99 MG/DL) *GFR EST NON AFR PALESTINIAN >90 ML/MIN *GFRA EST AFR AMER >90 [...] 3:00 PM * Address # 1 : [phone] * #2 Office appointment: : Sandra Daniel * #2 Date/Time : 11/13/2015 12:45 PM * Address # 2 : [employer] [employer] [phone] Procedures No relevant procedures performed. Immunizations No [...] the responsibility of the patient or patient automotive sales representative to confirm the list of [...] bedtime for psychosis Stopped medications* thyroid (pork) ([place] Thyroid) 2 g am every Am and 1 g every PM Tablet Directions: oral * paroxetine HCl (Paxil) 40 mg Tablet Directions: 1 tablet oral PM
--- OUTSIDE RECORDS SUMMARY | 2016-10-31 21:34 | XMS REPORT | Continuity of Care Document ---
Author Author [facility] Organization [facility] Address Unknown Phone Unavailable Allergies Medications Problems Date Dx Coded Attending Type Code Diagnosis Diagnosed By 08/23/2015 LOYDA MCKEON E039 Hypothyroidism, unspecified 08/23/2015 LOYDA MCKEON F251 Schizoaffective disorder, depressive type 08/23/2015 LOYDA MCKEON I10 Essential (primary) hypertension 08/23/2015 LOYDA MCKEON R51 Headache 08/23/2015 LOYDA MCKEON [id number] Hormone replacement therapy (postmenopausal) 08/23/2015 LOYDA MCKEON [id number] Other intermediate school teacher (current) drug therapy 08/23/2015 LOYDA MCKEON Z9114 Patient's other noncompliance with medication regimen 08/23/2015 LOYDA MCKEON Z915 Personal history of self-harm 10/26/2015 ANGELITA CALLAWAY E039 Hypothyroidism, unspecified 10/26/2015 ANGELITA CALLAWAY F209 Schizophrenia, unspecified 10/26/2015 ANGELITA CALLAWAY Z915 Personal history of self-harm Procedures Results Encounters ACCT No. Visit Date/Time Discharge Status Pt. Type Provider Facility Loc./Unit Complaint [id number] 09/22/2013 13:45:00 09/22/2013 23 :59:59 [facility] Outpatient [id number] 09/14/2013 10:00:00 09/14/2013 23 :59:59 [facility] Outpatient
--- OUTSIDE RECORDS SUMMARY | 2016-10-31 21:36 | XMS REPORT ---
Author Author GENERATED, SYSTEM Organization Unknown Address Unknown Phone Unavailable Care Team Providers Care Nonprofit Director Name Role Phone PP Unavailable Reason For [...] MG/DL (65-99 MG/DL) *GFR EST NON AFR ROMANIAN >90 ML/MIN *GFRA EST AFR AMER >90 [...] 3:00 PM * Address # 1 : [phone] * #2 Office appointment: : Sandra Daniel * #2 Date/Time : 11/13/2015 12:45 PM * Address # 2 : [employer] [phone] Procedures No relevant procedures performed. Immunizations No [...] the responsibility of the patient or patient cash posting representative to confirm the list of medications [...] bedtime for psychosis Stopped medications* thyroid (pork) ([place] Thyroid) 2 g am every Am and 1 g every PM Tablet Directions: oral * paroxetine HCl (Paxil) 40 mg Tablet Directions: 1 tablet oral PM
--- OUTSIDE RECORDS SUMMARY | 2016-10-31 21:36 | XMS REPORT ---
Author Author GENERATED, SYSTEM Organization Unknown Address Unknown Phone Unavailable Care Team Providers Care Bearing Press Machine Operator Name Role Phone PP Unavailable Reason For [...] the responsibility of the patient or patient visitor services representative to confirm the list of medications [...] day for mood stabilization * thyroid (pork) ([place] Thyroid) 60 mg Tablet, Ordered By: MARCI BARON Directions: 2 tabs am, 1 tab hs oral daily every morning for hypothyroidism * topiramate (ToPAMax) 100 mg Tablet, Ordered By: AMRCI BARON Directions: 1 tablet oral three times a day for mood stabilization Stopped medications* HYDROcodone-acetaminophen 5 mg-325 mg Tablet Directions: 1 tablet oral every 5 hours PRN pain Additional Instructions: not present on UDS * traZODone 100 mg Tablet Directions: 1 tablet oral daily at bedtime
--- OUTSIDE RECORDS SUMMARY | 2016-10-31 21:37 | XMS REPORT | Continuity of Care Document ---
Author Author [facility] Organization [facility] Address Unknown Phone Unavailable Care Team Providers Care Barrel Rifler Button Name Role Phone RICKY MCFARLAND MD Primary Care Physician [phone] Insurance Providers Payer Name Policy Number Subscriber Name Relationship [facility] [id number] Thea Bautista 16 Self Problems Medical Problems [...] Topiramate 200 Mg PO BEDTIME 09/15/10 Active [Xaczupfas06 Mg] 20 Mg PO BEDTIME 09/15/10 06/25/12 Discontinued Omeprazole 20 Mg PO DAILY 01/22/11 Active Multivitamins 1 Tab PO DAILY 01/22/11 Active Lamotrigine 100 Mg PO DAILY 01/22/11 06/23/11 Discontinued [Vybrin] 20 Mg PO DAILY 06/23/11 09/05/11 Discontinued [Holden] PO DAILY 06/23/11 10/17/12 Discontinued Clonazepam 1 [...] F (96.8 - 99.1) Temperature (Calculated Celsius) 36.15447 degrees C (36.0 - 37.3) Pulse Rate [...] Has specimen been collected/obtained? Y Urine Specific [place] January 22, 2011 11:09am 1.010 L - [...] 08, 2012 9:22pm LAB TEST FORM REQUEST [id number] - HDL Cholesterol Direct April 21, 2012 [...] 27, 2013 7:55am 0.1 % N 0.0-0.5 CC-Afu-P-Type Natriuretic Peptide February 27, 2013 7:55am 79 [...] Encounters Encounter Location Date/Time Departed Emergency Room [facility] 01/20/14 7:56pm Recent Diagnosis
--- OUTSIDE RECORDS SUMMARY | 2016-10-31 21:37 | XMS REPORT | Continuity of Care Document ---
Author Author [facility] Organization [facility] Address Unknown Phone Unavailable Care Team Providers Care Minister Helper Name Role Phone RICKY MCFARLAND MD Primary Care Physician [phone] Insurance Providers Payer Name Policy Number Subscriber Name Relationship [facility] [email or web address] [facility] [id number] Thea Bautista 16 Self Problems Medical Problems [...] Topiramate 200 Mg PO BEDTIME 09/15/10 Active [Xlmbcihst20 Mg] 20 Mg PO BEDTIME 09/15/10 06/25/12 Discontinued Multivitamins 1 Tab PO DAILY 01/22/11 Active Lamotrigine 100 Mg PO DAILY 01/22/11 06/23/11 Discontinued [Vybrin] 20 Mg PO DAILY 06/23/11 09/05/11 Discontinued [[place]] PO DAILY 06/23/11 10/17/12 Discontinued Clonazepam 1 [...] F (96.8 - 99.1) Temperature (Calculated Celsius) 36.68376 degrees C (36.0 - 37.3) Pulse Rate [...] Has specimen been collected/obtained? Y Urine Specific [place] January 22, 2011 11:09am 1.010 L - [...] 08, 2012 9:22pm LAB TEST FORM REQUEST [id number] - HDL Cholesterol Direct April 21, 2012 [...] 27, 2013 7:55am 0.1 % N 0.0-0.5 [place]-Khk-M-Type Natriuretic Peptide February 27, 2013 7:55am 79 [...] Encounters Encounter Location Date/Time Departed Emergency Room [facility] 07/18/14 4:51pm Recent Diagnosis
--- OUTSIDE RECORDS SUMMARY | 2016-10-31 21:37 | XMS REPORT ---
Author Author GENERATED, SYSTEM Organization Unknown Address Unknown Phone Unavailable Care Team Providers Care Community Outreach Coordinator Name Role Phone PP Unavailable Reason For [...] the responsibility of the patient or patient patient service representative to confirm the list of medications [...] day for mood stabilization * thyroid (pork) ([place] Thyroid) 60 mg Tablet, Ordered By: MARCI [...]
[2016-10-31] MEDS ORDERED: CLON1TAB4 PO (21:40)
[2016-10-31] MEDS ORDERED: QUET200T PO (21:46)
[2016-10-31] MEDS ORDERED: QUET50TA PO (21:46)
--- NOTE | 2016-10-31 21:47 | ERPDOC ---
Departure Disposition Decision Date: October 31, 2016 Disposition Decision Time: 22:23 Disposition: 01 DISCHARGED HOME, SELF-CARE Impression Impression Impression: Primary Impression: Constipation Constipation type: unspecified constipation type Qualified Codes: K59.00 - Constipation, unspecified Severity: Moderate Condition: Stable Seen By: Mid-level only Referrals: RICKY MCFARLAND MD (PCP) Patient Instructions: Constipation (ED) Problems/Meds/Labs Reviewed?: Yes Medications reviewed and manag: Yes Additional Instructions: I do want you to try a bottle of magnesium citrate to get your bowels moving. You can buy this over the counter. Drink the bottle over about 30 minutes. You may continue with the Miralax as well. If this does not help get your bowels moving then I do want you to see your primary care provider next week to see if they have something else they would like for you to use. Your labs today were normal and you test was negative. Follow up care ordered?: Yes Mental Status: Alert HPI - Abdominal Pain General Chief Complaint: Abdominal Pain Stated Complaint: ABD PAIN & BLOATING Time Seen by Provider: 21:24 Source: patient History/Exam Limitations: no limitations HPI - Abdominal Pain Initial Comments She presents to ER today for evaluation of abdominal bloating. This has been ongoing over the last 6 months. She is concerned that she is as she had unprotected intercourse 6 months ago. She has had a lot of nausea at home. Also has been having some constipation. Did have a small BM today. Has been taking Miralax for this but nothing else. Has been eating and drinking well at home. She states that she did have a hysterectomy but she questions whether that is true as she has been told that they did take everything but one ovary but then another that they didnt. She also does have a history of schizophrenia. Occurred At: home Onset: Gradual Duration: other (Over the last 6 months) Quality: fullness Location: generalized abdomen Radiation: no radiation Activities at Onset: none Associated Symptoms: DENIES: back pain, chest pain, diaphoresis, fatigue, fever /chills, headache, heartburn, nausea/vomiting, rash, shortness of breath, swelling/mass in abdomen, syncope, weakness Allergies: Coded Allergies: gluten (Verified Allergy, Unknown, 01/12/16) methylphenidate (Verified Allergy, Unknown, "I GOT COMPLETELY NUTS", ) shellfish derived (Verified Allergy, Unknown, 01/12/16) Past History Past Medical History Metabolic: hypothyroidism GI: GERD Neurological: headaches Musculoskeletal: osteoarthritis Psychological: bipolar, depression, personality disorder, schizophrenia Surgical History General: tonsils Reproductive/: hysterectomy Family History Family PMH: FOUND: CAD, PA, cancer, hypertension Vaccines Hx Influenza Vaccination: No Hx Tetanus, Diptheria, Pertuss: Yes (2012) Social History Smoking Status: Never smoker Substance Use Type: does not use Alcohol Intake: none Review of Systems Constitutional Constitutional: DENIES: chills, dizziness, fatigue, fever, weakness Cardiovascular Cardiac: DENIES: chest pain, orthopnea Rhythm/Rate: DENIES: irregular beat, palpitations Pulmonary Respiratory: DENIES: cough, dyspnea, sputum, tachypnea GI Upper Abdomen: nausea, pain, DENIES: vomiting Lower Abdomen: pain, DENIES: constipation, diarrhea General: DENIES: discharge, dysuria, frequency, urgency Integumentary Skin: DENIES: rash Neurological General: DENIES: headache, numbness, tingling, weakness Physical Exam General General Nourishment: well nourished, well developed, appears stated age, no acute distress, adult General Body Habitus: well groomed Vitals and Pain First Documented Vital Signs Date Time Temp Pulse Resp B/P Pulse Ox O2 Delivery O2 Flow Rate FiO2 10/31/16 21:22 97.6 65 16 148/75 98 Room Air Weight: Kilograms: Height (feet): 5 Height (inches): 10.00 Triage Pain Scale: RN VS reviewed by Provider: Yes Normal Exams: Neck: Full range of motion, without adenopathy, JVD, bruits or thyromegaly Chest/Resp: Clear all lemus, with good airflow, and symmetry bilaterally CV: Regular rate and rhythm, without murmur or gallop, Pulses 2+ all extremities, capillary refill, <2 seconds all ext., no pedal edema noted Abdomen: Bowel sounds positive, soft, non-tender, non-distended, no hepatosplenomegaly, masses or bruits noted Lymphatic: No lymphadenopathy, or lymphedema noted Integumentary: No rashes, hives, or bruising noted Neurologic: Patient is alert, and oriented Psychiatric: Patient exhibits, appropriate attention, emotion and affect Differential Diagnoses Considering: Bowel Obstruction, Constipation, Gastroenteritis, UTI Progress Results/Orders Orders Procedure Category Date Status Time LAB 10/31/16 Complete Qualitative, Urine 21:37 Cbc W/Auto LAB 10/31/16 Complete Diff-Reflex Manual Bmp - Basic Metabolic LAB 10/31/16 Complete Panel Ua, Dip Wreflex LAB 10/31/16 Complete Microsc & Center Medical Director 21:37 Lab Results Laboratory Tests Test 10/31/16 21:48 10/31/16 22:09 White Blood Count 5.9T/MM3 Red Blood Count 4.05M/MM3 Hemoglobin 12.9GM/DL Hematocrit 36.6% Mean Corpuscular Volume 90.4UM3 Mean Corpuscular Hemoglobin 31.9UUG Mean Corpuscular Hemoglobin Concent 35.2GM/DL RDW Standard Deviation 39.8FL Platelet Count 214T/MM3 Mean Platelet Volume 10.0UM3 Immature Granulocyte % (Auto) 0.2% Neutrophils (%) (Auto) 31.2% Lymphocytes (%) (Auto) 55.6% Monocytes (%) (Auto) 7.7% Eosinophils (%) (Auto) 4.6% Basophils (%) (Auto) 0.7% Absolute Immature Granulocyte (auto 0.01T/MM3 Absolute Neutrophils (auto) 1.8T/MM3 Absolute Lymphocytes (auto) 3.3T/MM3 Absolute Monocytes (auto) 0.5T/MM3 Absolute Eosinophils (auto) 0.3T/MM3 Absolute Basophils (auto) 0.0T/MM3 Turbidity < 20 Sodium Level 142MEQ/L Potassium Level 3.6MEQ/L Chloride Level 109MEQ/L Carbon Dioxide Level 22MEQ/L Anion Gap 11MEQ/L Blood Urea Nitrogen 11.0MG/DL Creatinine 0.6MG/DL Glomerular Filtration Rate Calc 107 BUN/Creatinine Ratio 18RATIO Glucose Level 88MG/DL Calculated Osmolality 271MOSM/KG Calcium Level 9.1MG/DL Icterus Index < 2 Chemistry Specimen Hemolysis < 15 Urine Collection Type Cleancatch-midstream Urine Color Yellow Urine Turbidity Clear Urine pH 6.5 Urine Specific [place] <=1.005 Urine Protein Negative Urine Glucose (UA) Negative Urine Ketones Negative Urine Blood Negative Urine Nitrite Negative Urine Bilirubin Negative Urine Urobilinogen 0.2EU/DL Urine Leukocyte Esterase Negative Urinalysis Comment Microscopic not ind. Urine Test Negative Progress Progress CBC, BMP, and UA are normal today. HCG is clear. Did discuss findings with patient. I do think that this is a constipation issue. Will have her try some Mag Citrate and continue the Miralax. Follow up with PCP if not improving at all. VISHAL ELLIOTT MATCHER OFFBEARER October 31, 2016 21:47
[2016-10-31 21:54] LABS: BASOPHILS % (AUTO) 0.7 % (0-2); EOSINOPHILS # (AUTO) 0.3 T/MM3 (0-0.5); EOSINOPHILS % (AUTO) 4.6 % (0-4); HCT - HEMATOCRIT 36.6 % (36-46); HGB - HEMOGLOBIN 12.9 GM/DL (12-16); IMMATURE GRANULOCYTE # (AUTO) 0.01 T/MM3 (0.00-0.03); IMMATURE GRANULOCYTE % (AUTO) 0.2 % (0.0-0.5); LYMPHOCYTES # (AUTO) 3.3 T/MM3 (1-4.8); LYMPHOCYTES % (AUTO) 55.6 % (23-45); MEAN CORPUSCULAR HGB 31.9 UUG (26-34); MEAN CORPUSCULAR HGB CONC(MCHC 35.2 GM/DL (31-37); MEAN CORPUSCULAR VOLUME 90.4 UM3 (80-100); MONOCYTES # (AUTO) 0.5 T/MM3 (0-0.8); MONOCYTES % (AUTO) 7.7 % (0-9.0); NEUTROPHILS #(AUTO)-ABSOLUTE 1.8 T/MM3 (1.8-7.7); NEUTROPHILS % (AUTO) 31.2 % (33-66); RED BLOOD COUNT 4.05 M/MM3 (4.00-5.20); WBC - WHITE BLOOD COUNT 5.9 T/MM3 (4.5-11.0)
[2016-10-31 22:02] LABS: ANION GAP 11 MEQ/L (5-15); BUN/CREATININE RATIO 18 RATIO (6-26); CALCIUM 9.1 MG/DL (8.4-10.2); CHLORIDE 109 MEQ/L (98-107); CO2 - CARBON DIOXIDE 22 MEQ/L (22-30); CREATININE 0.6 MG/DL (0.7-1.2); GLOMERULAR FILTRATION RATE 107; GLUCOSE 88 MG/DL (65-110); POTASSIUM 3.6 MEQ/L (3.6-5); SODIUM 142 MEQ/L (134-144)
[2016-10-31 22:17] LABS: BLOOD, URINE NEGATIVE (NEGATIVE); COLOR,URINE YELLOW (YELLOW); LEUKOCYTE ESTERASE ,URINE NEGATIVE (NEGATIVE); NITRITE,URINE NEGATIVE (NEGATIVE); UROBILINOGEN,URINE 0.2 EU/DL (NORMAL)
[2016-10-31 22:30] VITALS: BP 135/71; PULSE 64; RESP 16; TEMP 97.6; O2SAT 99
== END 2016-10-31 22:30 | disposition home or self-care (01) ==
LOC: ED 21:17
DX: K59.00 Constipation, unspecified (principal)
CPT/HCPCS: 36415; 80048; 81003; 81025; 85025

== ENCOUNTER 2016-11-16 20:05 | Emergency (ER) | payer MEDICAID ==
[~2016-11-16] VITALS: Ht 177.8 cm; Wt 79.1 kg
[~2016-11-16 20:05] MED LIST changes: -CLON0.5T23 PO; +CLON1TAB4 PO; -PROG100C6 PO; +QUET200T PO; +QUET50TA PO; -RISP1TAB4 PO; -RISP3TAB3 PO
--- OUTSIDE RECORDS SUMMARY | 2016-11-16 20:10 | XMS REPORT | Continuity of Care Document ---
Author Author [facility] Organization [facility] Address Unknown Phone Unavailable Support Name Relationship Address Phone ROGERS SMALLWOOD MD Caregiver [address] [place] [address] Unavailable RICKY MCFARLAND MD Caregiver [address] [place] [address] Unavailable ADRIÁN BAUTISTA Next Of Kin [address] (CURRENTLY IN REHAB AT ) [place], [place] [id number] Insurance Providers Guarantor Thea Bautista Address [address] [place] [address] Email Payer [facility] Policy Number [id number] Subscriber's Name Thea Bautista Relationship 18 Self Effective Date 16 Expiration Date 16 Chief Complaint and Reason for Visit Chief Complaint Abdominal Pain Reason for Visit Constipation Problems Active Problems Medical Problem Onset Date Status Autonomic orthostatic hypotension Unknown Acute Bradycardia on ECG Unknown Acute Gas Unknown Acute Headache Unknown Acute Headache Unknown Acute Headache Unknown Acute Headache Unknown Acute Intermittent abdominal pain Unknown Acute LLQ abdominal pain Unknown Acute Patient left without being seen Unknown Acute Suicidal ideation Unknown Acute atypical chest pain Unknown Acute Past Problems Medical Problem Onset Date Constipation Unknown Medications Current Home Medications Medication Dose Units Route Directions Days Qty Instructions Start Date Clonazepam 1 Mg Tablet 1 Mg Oral Bedtime 30 10/31/16 Duloxetine Hcl 60 Mg Capsule. 120 Mg Oral Daily 03/12/15 Fludrocortisone Acetate 0.1 Mg Tablet 0.1 Mg Oral Daily 06/25/12 Liothyronine Sodium 5 Mcg Tablet 5 Mcg Oral Every Morning Liothyronine Sodium 5 Mcg Tablet 5 Mcg Oral Bedtime 10/04/15 Paroxetine Hcl 40 Mg Tablet 40 Mg Oral Bedtime 10/04/15 Propylene Glycol/Peg 400 (Systane Gel Eye Drops) 10 Ml Drops.gel 1 Drop Both Eyes As Needed 10/04/15 Quetiapine Fumarate (Seroquel) 50 Mg Tablet 50 Mg Oral Take Today At 8: 00AM & 12:00PM Take 1 tablet, by mouth, two times a day at 8:00am and 12: 00pm (NOON). 10/31/16 Quetiapine Fumarate (Seroquel) 200 Mg Tablet 200 Mg Oral Bedtime Take 1 tablet, by mouth, once a day at bedtime. 10/31/16 Thyroid,Pork ([place] Thyroid) 60 Mg Tablet 120 Mg Oral Every Morning 08/10/15 Thyroid,Pork ([place] Thyroid) 60 Mg Tablet 60 Mg Oral Bedtime 06/13 Topiramate 100 Mg Tablet 100 Mg Oral Give 0900 & 1700 03/12/15 Trazodone Hcl 100 Mg Tablet 100 Mg Oral Bedtime 07/18/14 Past Home Medications Medication Directions Ordered Status [place] , Oral Daily 06/23/11 Discontinued Clonazepam 0.5 Mg Tab.rapdis, 0.25 Tab Oral Twice A Day 03/12/15 Discontinued Clonazepam 1 Mg Tablet, 1 Mg Oral Bedtime 09/05/11 Discontinued Duloxetine Hcl (Cymbalta) 60 Mg Capsule.dr, 60 Mg Oral Twice A Day 09/15/10 Discontinued Lamotrigine (Lamictal) 100 Mg Tablet, 100 Mg Oral Daily 01/22/11 Discontinued Paliperidone (Invega) 3 Mg Tab.er.24, 1 Tab Oral Three Times A Day 12/06/14 Discontinued Paroxetine Hcl (Paxil) 30 Mg Tablet, Daily 09/15/10 Discontinued Progesterone,Micronized (Progesterone) 100 Mg Capsule, 100 Mg Oral Bedtime Discontinued Risperdal 10MG 10 Mg Tablet, 10 Mg Oral Daily 09/15/10 Discontinued [id number] Mg 20 Mg Tablet, 20 Mg Oral Bedtime 09/15/10 Discontinued Risperidone (Risperdal) 1 Mg Tablet, 1 Mg Oral Every Morning 12/06/14 Discontinued Risperidone (Risperdal) 3 Mg Tablet, 3 Mg Oral Bedtime 03/12/15 Discontinued Topiramate (Topamax) 200 Mg Tablet, 200 [...] discharge instructions. Plan of Care Discharge Date 10/31/16 10:30pm Disposition 01 DISCHARGED HOME, SELF-CARE Condition at Discharge Stable Instructions/Education Provided Constipation (ED) Prescriptions See Medication Section Referrals RICKY MCFARLAND MD Address: [address] [place] [address] [place] [phone] Additional Instructions/Education I do want you to try a bottle of magnesium citrate to get your bowels moving. You can buy this over the counter. Drink the bottle over about 30 minutes. You may continue with the Miralax as well. If this does not help get your bowels moving then I do want you to see your primary care provider next week to see if they have something else they would like for you to use. Your labs today were normal and you test was negative. Care Plan and Goals Physician Care Plan Problem:Constipation Goal: Follow up with primary care provider Instructions: Take medications and follow care plan as discussed/written Functional Status No functional status results. Allergies, [...] Vital Signs Vital Response Date/Time Temperature (Fahrenheit) 97.6 deg F (96.8 - 99.1) 10/31/2016 9:22pm Temperature (Calculated Celsius) 36.39933 degrees C (36.0 - 37.3) 10/31/2016 9:22pm Pulse Rate (adult) 65 bpm (60 - 100) 10/31/2016 9:22pm Respiratory Rate 16 breaths/min (10 - 20) 10/31/2016 9:22pm O2 Sat by Pulse Oximetry 98 % (90 - 100) 10/31/2016 9:22pm Blood Pressure 148/75 mm Hg 10/31/2016 9:22pm Height (Feet) 5 feet 10/31/2016 9:22pm Height (Inches) 10.00 inches 10/31/2016 9:22pm Weight (Kilograms) 78.600 kg 10/31/2016 9:22pm Body Mass Index (BMI) 24.0 10/31/2016 9:22pm Results Laboratory Results Test Name Result Units Flags Reference Collection Date/Time Result Date/ Time Comments White Blood Count 5.9 T/MM3 4.5-11.0 10/31/2016 9:48pm 10/31/2016 9: 54pm Red Blood Count 4.05 M/MM3 4.00-5.20 10/31/2016 9:48pm 10/31/2016 9: 54pm Hemoglobin 12.9 GM/DL 12-16 10/31/2016 9:48pm 10/31/2016 9:54pm Hematocrit 36.6 % 36-46 10/31/2016 9:48pm 10/31/2016 9:54pm Mean Corpuscular Volume 90.4 UM3 80-100 10/31/2016 9:48pm 10/31/2016 9: 54pm Mean Corpuscular Hemoglobin 31.9 UUG 26-34 10/31/2016 9:48pm 2016 9:54pm Mean Corpuscular Hemoglobin Concent 35.2 GM/DL 31-37 10/31/2016 9:48pm 10/31/2016 9:54pm RDW Standard Deviation 39.8 FL 36.9-50.2 10/31/2016 9:48pm 10/31/2016 9 :54pm Platelet Count 214 T/MM3 130-400 10/31/2016 9:48pm 10/31/2016 9:54pm Mean Platelet Volume 10.0 UM3 9.4-12.4 10/31/2016 9:48pm 10/31/2016 9: 54pm Neutrophils (%) (Auto) 31.2 % L 33-66 10/31/2016 9:48pm 10/31/2016 9: 54pm Lymphocytes (%) (Auto) 55.6 % H 23-45 10/31/2016 9:48pm 10/31/2016 9: 54pm Monocytes (%) (Auto) 7.7 % 0-9.0 10/31/2016 9:48pm 10/31/2016 9:54pm Eosinophils (%) (Auto) 4.6 % H 0-4 10/31/2016 9:48pm 10/31/2016 9:54pm Basophils (%) (Auto) 0.7 % 0-2 10/31/2016 9:48pm 10/31/2016 9:54pm Immature Granulocyte % (Auto) 0.2 % 0.0-0.5 10/31/2016 9:48pm 2016 9:54pm Absolute Neutrophils (auto) 1.8 T/MM3 1.8-7.7 10/31/2016 9:48pm 2016 9:54pm Absolute Lymphocytes (auto) 3.3 T/MM3 1-4.8 10/31/2016 9:48pm 2016 9:54pm Absolute Monocytes (auto) 0.5 T/MM3 0-0.8 10/31/2016 9:48pm 10/31/2016 9:54pm Absolute Eosinophils (auto) 0.3 T/MM3 0-0.5 10/31/2016 9:48pm 2016 9:54pm Absolute Basophils (auto) 0.0 T/MM3 0-0.2 10/31/2016 9:48pm 10/31/2016 9:54pm Absolute Immature Granulocyte (auto 0.01 T/MM3 0.00-0.03 10/31/2016 9: 48pm 10/31/2016 9:54pm Icterus Index < 2 0-7 10/31/2016 9:48pm 10/31/2016 10:02pm Chemistry Specimen Hemolysis < 15 0-25 10/31/2016 9:48pm 10/31/2016 10:02pm 0-25: Specimen Exhibited No Hemolysis. Turbidity < 20 0-20 10/31/2016 9:48pm 10/31/2016 10:02pm Sodium Level 142 MEQ/L 134-144 10/31/2016 9:48pm 10/31/2016 10:02pm Potassium Level 3.6 MEQ/L 3.6-5 10/31/2016 9:48pm 10/31/2016 10:02pm Chloride Level 109 MEQ/L H 98-107 10/31/2016 9:48pm 10/31/2016 10:02pm Carbon Dioxide Level 22 MEQ/L 22-30 10/31/2016 9:48pm 10/31/2016 10: 02pm Anion Gap 11 MEQ/L 5-15 10/31/2016 9:48pm 10/31/2016 10:02pm Blood Urea Nitrogen 11.0 MG/DL 7-17 10/31/2016 9:48pm 10/31/2016 10: 02pm Creatinine 0.6 MG/DL L 0.7-1.2 10/31/2016 9:48pm 10/31/2016 10:02pm BUN/Creatinine Ratio 18 RATIO 6-26 10/31/2016 9:48pm 10/31/2016 10: 02pm Glomerular Filtration Rate Calc 107 10/31/2016 9:48pm 10/31/2016 10 :02pm Glucose Level 88 MG/DL 65-110 10/31/2016 9:48pm 10/31/2016 10:02pm Calculated Osmolality 271 MOSM/KG 261-280 10/31/2016 9:48pm 10/31/2016 10:02pm Calcium Level 9.1 MG/DL 8.4-10.2 10/31/2016 9:48pm 10/31/2016 10:02pm Urine Collection Type [place] 10/31/2016 10:09pm 10/31 10:17pm Urine Color YELLOW YELLOW 10/31/2016 10:09pm 10/31/2016 10:17pm Urine Turbidity CLEAR CLEAR 10/31/2016 10:09pm 10/31/2016 10:17pm Urine Specific [place] <=1.005 L 1.015-1.025 10/31/2016 10:09pm 2016 10:17pm Urine pH 6.5 5.0-8.0 10/31/2016 10:09pm 10/31/2016 10:17pm Urine Leukocyte Esterase NEGATIVE NEGATIVE 10/31/2016 10:09pm 2016 10:17pm Urine Nitrite NEGATIVE NEGATIVE 10/31/2016 10:09pm 10/31/2016 10: 17pm Urine Protein NEGATIVE NEGATIVE 10/31/2016 10:09pm 10/31/2016 10: 17pm Urine Glucose (UA) NEGATIVE NEGATIVE 10/31/2016 10:09pm 10/31/2016 10 :17pm Urine Ketones NEGATIVE NEGATIVE 10/31/2016 10:09pm 10/31/2016 10: 17pm Urine Urobilinogen 0.2 EU/DL NORMAL 10/31/2016 10:09pm 10/31/2016 10: 17pm Urine Bilirubin NEGATIVE NEGATIVE 10/31/2016 10:09pm 10/31/2016 10: 17pm Urine Blood NEGATIVE NEGATIVE 10/31/2016 10:09pm 10/31/2016 10:17pm Urinalysis Comment MICROSCOPIC NOT IND. 10/31/2016 10:09pm 2016 10:17pm Procedures No known history of procedures. Encounters Encounter Location Arrival/Admit Date Discharge/Depart Date Attending Provider Departed Emergency Room [facility] 10/31/16 9:17pm 10/31/16 10: 30pm ROGERS SMALLWOOD MD Recent Diagnosis
[2016-11-16 20:18] VITALS: TEMP 98.6; Ht 177.8 cm; Wt 79.1 kg
--- NOTE | 2016-11-16 21:14 | ERPDOC ---
Departure Disposition Decision Date: November 16, 2016 Disposition Decision Time: 21:28 (TERRENCE IRIZARRY APRN) Disposition: 01 DISCHARGED HOME, SELF-CARE Impression Impression (TERRENCE IRIZARRY APRN) Impression: Primary Impression: Foot pain, bilateral Severity: Mild (TERRENCE IRIZARRY APRN) Condition: Stable Seen By: Mid-level only (TERRENCE IRIZARRY APRN) Referrals: RICKY MCFARLAND MD (Family) Patient Instructions: Plantar Fasciitis (ED) Problems/Meds/Labs Reviewed?: Yes Medications reviewed and manag: Yes (TERRENCE IRIZARRY APRN) Additional Instructions: Your feet have no signs of inflammation or injury. You do have some mild tenderness over the plantar fascia. You may take OTC ibuprofen 800mg every 8 hours as needed for pain. Follow with PCP if symptoms are not improving and for re-evaluation. Follow up care ordered?: Yes Mental Status: Alert, Oriented (TERRENCE IRIZARRY APRN) HPI General Chief Complaint: Lower Extremity Pain Stated Complaint: POSSIBLE FOOT SPRAIN Time Seen by Provider: 21:11 Source: patient (TERRENCE IRIZARRY APRN) Time Seen by Provider: 21:11 (BERNARDO BLACKMON DO) HPI Foot/Ankle Initial Comments 46 YO presents to ED with report of bilateral foot pain for the past 2 days. Denies any trauma/injury to feet. Patient points to the distal half of feet on the plantar and dorsum when asked where her pain is at. Patient took norco for pain. Pain Scale: Now: 4/10 (right foot), 5/10 (left foot) Location: bilateral: foot Associated Symptoms: pain with standing (mild), DENIES: bruising, numbness, other (fever/chills), pain with extension, pain with flexion, pallor, red streaks, redness, swelling, weakness (TERRENCE IRIZARRY APRN) Allergies: Coded Allergies: gluten (Verified Allergy, Unknown, 11/16/16) methylphenidate (Verified Allergy, Unknown, "I GOT COMPLETELY NUTS", ) shellfish derived (Verified Allergy, Unknown, 11/16/16) Past History Past Medical History Metabolic: hypothyroidism Cardiac: DENIES: angina Respiratory: DENIES: asthma GI: GERD Female: DENIES: renal insufficiency Neurological: headaches Musculoskeletal: osteoarthritis Integumentary: DENIES: eczema Psychological: bipolar, depression, personality disorder, schizophrenia (UMA IRIZARRYS A SLIP LASTER) Surgical History General: tonsils Reproductive/: hysterectomy (UMA IRIZARRYS Bubba SLIP LASTER) Family History Family PMH: FOUND: CAD, ID, cancer, hypertension (UMA IRIZARRYS Bubba SLIP LASTER) Vaccines Hx Influenza Vaccination: No Hx Tetanus, Diptheria, Pertuss: Yes (2012) (UMA IRIZARRYS A SLIP LASTER) Social History Substance Use Type: does not use Alcohol Intake: none (TERRENCE IRIZARRY SLIP LASTER) Review of Systems Constitutional Constitutional: DENIES: chills, dizziness, fever, weakness (UMA IRIZARRYS A SLIP LASTER) Eyes General: DENIES: erythema, exudate Lids/Accessories: DENIES: erythema, swelling (TERRENCE IRIZARRY SLIP LASTER) ENMT Ears: DENIES: pain Hearing: DENIES: hearing loss Sinuses: DENIES: congestion, rhinorrhea Mouth/Throat: DENIES: sore throat (UMA IRIZARRYS A SLIP LASTER) Cardiovascular Cardiac: DENIES: chest pain, murmur Rhythm/Rate: DENIES: palpitations (UMA IRIZARRYS A SLIP LASTER) Pulmonary Respiratory: DENIES: cough, dyspnea (UMA IRIZARRYS A SLIP LASTER) GI Upper Abdomen: DENIES: nausea, pain, vomiting Lower Abdomen: DENIES: diarrhea, pain (UMA IRIZARRYS A SLIP LASTER) General: DENIES: dysuria, pain (UMA IRIZARRYS A SLIP LASTER) Musculoskeletal General: pain, see HPI, tenderness (UMA IRIZARRYS A SLIP LASTER) Integumentary Skin: DENIES: color change, itching, rash (UMA IRIZARRYS A SLIP LASTER) Neurological General: DENIES: ataxia, change in strength, numbness, paralysis/paresis, weakness (UMA IRIZARRYS A SLIP LASTER) Psychiatric Psychiatric: DENIES: anxiety, depression, nervousness (UMA IRIZARRYS A SLIP LASTER) Exam General General Nourishment: well nourished, well developed, adult General Body Habitus: well groomed Vital Signs: Temperature: 98.6, Source: Oral, Heart Rate: 68, Respiratory Rate : 12, BP: 133/78, Pulse Oximetry: 100 Height (Feet): 5 Height (Inches): 10.00 (UMA IRIZARRYS A SLIP LASTER) Fastrak Foot/Ankle Foot/Ankle #1: Leg: Left Ankle: NOT FOUND: decreased ROM, deformity, ecchymosis, swelling, tender lat. malleolus, tender med. malleolus Foot: tender plantar fascia (mild), NOT FOUND: deformity, discoloration, numbness, swelling Toes: cap refill <2 sec ea toe, NOT FOUND: decreased ROM, deformity, ecchymosis, erythema, nail avulsion, subungual hematoma Dorsalis Pedis Pulse: 2+ Foot/Ankle #2: Leg: Right Ankle: NOT FOUND: decreased ROM, deformity, ecchymosis, swelling, tender lat. malleolus, tender med. malleolus Foot: tender plantar fascia (mild), NOT FOUND: deformity, discoloration, numbness, swelling Toes: cap refill <2 sec ea toe, NOT FOUND: decreased ROM, deformity, ecchymosis, erythema, nail avulsion, subungual hematoma Dorsalis Pedis Pulse: 2+ (UMA IRIZARRYS A SLIP LASTER) Eyes (brief) Eyes Brief: found: EOMI (UMA IRIZARRYS A SLIP LASTER) ENMT (brief) ENMT Brief: NOT FOUND: nasal exudate, nasal swelling (UMA IRIZARRYS A SLIP LASTER) Neck (brief) Neck Brief: FOUND: trachea midline (UMA IRIZARRYS A SLIP LASTER) Respiratory (brief) Respiratory Brief: FOUND: clear all lemus, equal bilaterally, symmetrical ( IRIZARRYTERRENCE A SLIP LASTER) Cardiovascular (brief) Cardiac Brief: FOUND: regular rate, regular rhythm (IRIZARRYTERRENCE A SLIP LASTER) Integumentary (brief) Integumentary Brief: FOUND: dry, pink, warm (UMA IRIZARRYS A SLIP LASTER) Neurologic (brief) Neurological Brief: FOUND: motor-no gross deficits, sensory-no gross deficits ( UMA IRIZARRYS A SLIP LASTER) Neurologic RN Documented GCS Eye Opening: Verbal: Motor: Total: (UMA IRIZARRYS A SLIP LASTER) Psychiatric (brief) Psychiatric Brief: FOUND: alert, oriented, NOT FOUND: normal affect (flat) ( UMA IRIZARRYS A SLIP LASTER) Differential Diagnoses Considering: Contusion, Plantar Fasciitis, Sprain, Strain, Other (OA) (UMA IRIZARRYS A SLIP LASTER) Progress Progress Progress Patient declined toradol injection. I discussed exam findings with patient and that she does have some mild tenderness over her plantar fascia. I cannot rule out that she not have plantar fasciitis or possible arthritis in her feet. I discussed the use of NSAIDs and follow-up with PCP for reevaluation symptoms are not improving. (TERRENCE IRIZARRY APRN) TERRENCE IRIZARRY APRN November 16, 2016 21:14 OCTOBER,BERNARDO Nayak DO November 18, 2016 05:56
[2016-11-16 21:44] VITALS: BP 117/76; PULSE 70; RESP 12; O2SAT 100
--- NOTE | 2016-11-16 21:44 | NUR ---
DEPART PT IS DISCHARGED AT THIS TIME, INSTRUCTIONS ARE REVIEWED AND UNDERSTANDING IS VOICED. PT LEAVES AMBULATORY.
== END 2016-11-16 21:44 | disposition home or self-care (01) ==
LOC: ED 20:05
DX: M79.672 Pain in left foot (principal); M79.671 Pain in right foot